=== PATIENT | male | born 1970 | race Caucasian/White ===

== ENCOUNTER 2022-04-03 10:39 | Emergency (ER) | payer OTHER, SELFPAY ==
--- NOTE | ~2022-04-03 | CT_ITS ---
EXAMINATION: CT ABDOMEN AND PELVIS WITHOUT CONTRAST CLINICAL INFORMATION: Right lower quadrant pain. COMPARISON: None. TECHNIQUE: Multidetector volumetric imaging was performed from the superior aspect of the liver through the pubic symphysis. Sagittal and coronal reformatted images were obtained on the technologist's workstation. This CT examination was performed using dose optimization techniques as appropriate, variously including the following: *Automated exposure control *Adjustment of mA and/or kV according to patient size (this includes techniques or standardized protocols for targeted exams where dose is matched to indication/reason for exam; i.e. extremities or head) *Use of iterative reconstruction technique DLP: 592 mGy-cm FINDINGS: LUNG BASES: Multiple sub-5 mm subpleural and perifissural pulmonary nodules. For example, a 0.5 cm subpleural right middle lobe nodule (4:65), a 0.3 cm subpleural right lower lobe nodule (4:77), and a 0.5 cm subpleural left lower lobe nodule (4:105). No focal consolidation or pleural effusion. Small subpleural blebs posteriorly in the lung bases. Extensive triple-vessel coronary calcifications. LIVER, GALLBLADDER, AND BILIARY TREE: The liver is enlarged measuring 19.6 m craniocaudally and demonstrates decrease parenchymal attenuation most consistent with hepatic steatosis. No focal lesions are identified. Normal appearance of the gallbladder. No biliary ductal dilatation. PANCREAS: Small nonspecific calcification in the pancreatic head (3:41) possibly sequela of prior pancreatitis. The main pancreatic duct is nondilated. No peripancreatic free fluid or fat stranding. SPLEEN: Unremarkable. ADRENAL GLANDS: Unremarkable. KIDNEYS AND URETERS: The kidneys are normal in size, shape, and attenuation. Small water density cyst in the upper pole of the left kidney (3:33). No hydronephrosis, hydroureter, or calculi seen. No perinephric stranding. BLADDER: Unremarkable. GASTROINTESTINAL TRACT: Normal appendix (3:41). The stomach and the small bowel are nondilated. Questionable lower esophageal circumferential thickening. Extensive colonic diverticulosis without evidence of acute diverticulitis. No bowel obstruction. ABDOMINAL WALL: No significant hernia. LYMPH NODES: No lymphadenopathy by size criteria. VASCULAR: Extensive atherosclerotic disease. Abdominal aorta is of normal diameter. PELVIC VISCERA: Borderline enlarged prostate. Normal seminal vesicles. Calcification of the vas deferens. OSSEOUS STRUCTURES: No acute or aggressive appearing osseous abnormalities. Multilevel spondylosis with mild retrolisthesis of L5 on S1. CT/CT abdomen pelvis wo con IMPRESSION: 1. Normal appendix. 2. Extensive sigmoid diverticulosis without evidence of acute diverticulitis. 3. Lower esophageal wall thickening suggesting reflux esophagitis in the appropriate clinical context. If indicated, consider correlation with an upper enteroscopy. 4. Hepatomegaly and hepatic steatosis. 5. Extensive coronary calcifications and atherosclerotic disease. Correlate with cardiovascular risk factors. 6. Sub-5 mm pulmonary nodules are nonspecific. Assuming patient has no history of malignancy, recommend follow-up per Fleischner Society recommendations. According to the UPDATED 2017 Fleischner Society recommendations, the advised followup imaging for solid nodules < 6 mm is: LOW RISK PATIENT: No routine follow up. HIGH RISK PATIENT: Optional CT at 12 months.
--- NOTE | ~2022-04-03 | US_ITS ---
EXAMINATION: US ABDOMEN LIMITED CLINICAL INFORMATION: Right lower quadrant abdominal pain. COMPARISON: None. TECHNIQUE: Imaging of the abdomen was performed with a high-frequency linear transducer using graded compression. FINDINGS: The appendix is not demonstrated due to overlying gas and stool. No inflammatory changes are identified in the right lower quadrant. There is no free fluid. The right kidney is normal in size and echogenicity without hydronephrosis. No evidence of gallbladder stones, gallbladder wall thickening or pericholecystic free fluid. US/US appendix IMPRESSION: Evaluation of the appendix is non-diagnostic due to overlying gas and stool. No inflammatory changes identified in the right lower quadrant.
--- NOTE | ~2022-04-03 | CT_ITS ---
EXAMINATION: CT HEAD WITHOUT CONTRAST CLINICAL INFORMATION: Dizziness and headache. Elevated blood pressure. COMPARISON: None TECHNIQUE: Contiguous axial imaging was performed from the skull base to vertex without intravenous administration of contrast. This CT examination was performed using dose optimization techniques as appropriate, variously including the following: *Automated exposure control *Adjustment of mA and/or kV according to patient size (this includes techniques or standardized protocols for targeted exams where dose is matched to indication/reason for exam; i.e. extremities or head) *Use of iterative reconstruction technique DLP: 780 mGy-cm FINDINGS: There is no evidence of an extra-axial collection. There is no evidence of intra-axial or extra-axial hemorrhage. There is a prominent cisterna magna. The ventricles and extra-axial CSF spaces are otherwise appropriate. [place]-white matter differentiation is normal. No mass, mass effect or infarct is seen. Review of bone windows is normal. Visualized paranasal sinuses, mastoid air cells and middle ears are clear. CT/CT head/brain wo con IMPRESSION: No acute findings. Prominent cisterna magna otherwise unremarkable exam.
[2022-04-03 10:52] VITALS: BP 149/81; PULSE 108; RESP 18; TEMP 36.6; O2SAT 98; BMI 28.4
[2022-04-03 11:08] LABS: MANUAL DIFF FLAG NO
[2022-04-03 11:09] LABS: Basophils Percent Auto 0.1 % (0-2); Eosinophils Percent Auto 0.1 % (0-4); Hematocrit 44.5 % (42.0-52.0); Hemoglobin 15.3 g/dl (14.0-18.0); Imm Gran Abs Auto 0.09 X10*3/uL (0.00-0.03); Imm Gran Pct Auto 0.5 % (0.0-0.4); Lymphocytes Absolute Auto 1.4 X10*3/uL (1.2-4.9); Lymphocytes Percent Auto 7.1 % (20-40); Mean Corpuscular HGB Conc 34.4 g/dl (31.0-36.0); Mean Corpuscular Hemoglobin 29.5 pg (27.0-33.0); Mean Corpuscular Volume 85.9 fL (80.0-98.0); Mean Platelet Volume 9.1 fL (9.4-12.4); Monocytes Absolute Auto 0.9 X10*3/uL (0.1-1.2); Monocytes Percent Auto 4.7 % (2-11); Neutrophils Percent Auto 87.5 % (45-73); Platelet Count 328 X10*3/uL (160-400); Red Blood Count 5.18 X10*6/uL (4.60-5.80); Red Cell Distribution Width 13.7 % (11.0-16.0); White Blood Count 19.4 X10*3/uL (4.8-10.8)
[2022-04-03 11:26] LABS: Alanine Aminotransferase 23 U/L (0-40); Albumin Level 4.6 g/dL (3.5-5.0); Alkaline Phosphatase 75 U/L (39-117); Anion Gap 17 (12-20); Aspartate Amino Transferase 17 U/L (5-37); Bilirubin Total 0.5 mg/dL (0.0-1.0); Blood Urea Nitrogen 31 mg/dL (9-16); Carbon Dioxide 19 mmol/L (22-29); Chloride 107 mmol/L (96-108); Creatinine Clr Calc Pharmacy 71.4; Estimated Glomerular Filt Rate 54; Glucose Random 215 mg/dL (60-115); Magnesium 2.1 mg/dL (1.6-2.6); Potassium 4.5 mmol/L (3.3-5.1); Sodium 138 mmol/L (135-145); Total Protein 6.9 g/dL (6.5-8.0)
[2022-04-03 11:32] LABS: Influenza A Negative (Negative); Influenza B2 Negative (Negative)
[2022-04-03 11:40] LABS: COVID-19 Test Negative (Negative); IDNOW Serial# 55D5AD1C
[2022-04-03] MEDS: 0.9 % Sodium Chloride 1,000 ML 999 ML IVCONT (14:33)
[2022-04-03 14:48] VITALS: BP 178/93; PULSE 90; RESP 18; O2SAT 99
[2022-04-03 14:49] VITALS: RESP 17
[2022-04-03 14:49] LABS: Lactic Acid 1.1 mmol/L (0.5-2.0)
[2022-04-03] MEDS: Morphine Sulfate 4 MG/ML CARTRIDGE IVPUSH (14:49)
[2022-04-03] MEDS: ondansetron HCL 4 MG/2 ML VIAL IVPUSH (14:49)
--- NOTE | 2022-04-03 15:38 | ED_ITS ---
HPI - Nausea/Vomiting/Diarrhea General Chief complaint: Nausea/Vomiting/Diarrhea Stated complaint: Vomiting/Bit by tick 03/29 Time Seen by Provider: 04/03/22 10:57 Source: patient and family Mode of arrival: ambulatory Limitations: no limitations History of Present Illness HPI Narrative: 51-year-old male with a past medical history of hypertension, diabetes and anxiety presenting to the ED with his with complaints of nausea/vomiting/diarrhea with lower abdominal pain worse on the right lower aspect since yesterday 10:00. Reports that he has been unable to keep anything down. He reports that he went camping over the weekend was bit by a tick which he was able to pull out by the afternoon and he is unsure if this is related. He denies recent travel or sick contacts or possible bad food exposure or any others with similar symptoms. He denies any measured fevers, dizziness, headaches, neck pain/stiffness, trouble swallowing or breathing, chest pain or shortness of breath, cough, loss of taste or smell, nasal congestion/rhinorrhea, dyspnea on exertion, orthopnea, palpitations, paresthesias, black or bloody stools, black or bloody emesis, dysuria, hematuria, abnormal penile discharge, rashes or any other symptoms complaints or concerns at this time. Reports that he has never had this in the past. MD elicited complaint: nausea, vomiting, diarrhea and abdominal pain Onset (ago): day(s) (2) Description of vomiting: bilious Description of diarrhea: watery Associated nausea: Yes Associated abdominal pain: Yes Location of pain: RLQ, LLQ and suprapubic Radiation: does not radiate Pain consistency: constant Severity: severe Pain scale (0-10): 10 Quality: aching and constant Exacerbating factors: none Relieving factors: none Associated symptoms: loss of appetite and nausea/vomiting Related Data Previous Rx's Medication Instructions Recorded dicyclomine 20 mg tablet 20 mg PO BID #14 tab 04/03/22 ondansetron 4 mg disintegrating 4 mg PO Q8H #14 tab 04/03/22 tablet Allergies Allergy/AdvReac Type Severity Reaction Status Date / Time No Known Allergies Allergy Verified 04/03/22 10:54 Review of Systems Review of Systems: Constitutional : No Fever, No Chills, No Night Sweats, No Fatigue, No Malaise Cardiovascular : No Chest Pain, No SOB Respiratory : No Cough, No Sputum, No Wheezing, No Dyspnea Gastrointestinal : + Nausea, + Vomiting, + Diarrhea, + abdominal Pain, No Hematochezia, No Melena Genitourinary : No irregular bleeding, No Dysuria, No Urinary Frequency, No Hematuria,No Urinary Incontinence, No Urgency, No Flank Pain Musculoskeletal : No joint pain, No Myalgias, No Joint Swelling Skin : No Skin Lesions, No rash Neuro : +general Weakness, No Focal weakness, No Numbness, No Paresthesias, No Loss of Consciousness, No Dizziness, No Headache Heme/Lymph: No Lymphadenopathy Endocrine : No Temperature Intolerance Yes all other systems are reviewed and are negative Gastrointestinal: Gastrointestinal: Reports nausea PMFSH Past Medical History Attestation statement: The following information was validated with the patient. Surgical History H/O hernia repair Social History Social History Advance Directives: No Physical Exam Vital Signs: Vital Signs: Last Vital Signs Temp 98 F 04/03/22 10:52 Pulse 90 04/03/22 14:48 Resp 17 04/03/22 14:49 BP 178/93 H 04/03/22 14:48 Pulse Ox 99 04/03/22 14:48 BMI result Body Mass Index 28.4 vital signs have been reviewed as normal and appeared to be correct. Blood pressure 149/81. Heart rate 108. Respiration rate normal. Temperature normal. Oxygen saturation normal. Appearance: Alert. Oriented X3. No acute distress. Head: Normal external exam. Normocephalic. Eyes: PERRLA. EOMI. Conjunctiva and sclera normal. Eyelids normal. ENT: Pharynx normal. Uvula midline. Moist mucous membranes. No trismus noted. No drooling noted. No muffled voice noted. Neck: Normal inspection. Neck supple. FROM. No adenopathy. No meningeal signs. CVS: Normal heart rate and rhythm. Heart sound normal. No murmurs noted. Pulses normal throughout. Respiratory: No respiratory distress. Painless inspiration. Breath sounds normal. No wheezes/rales/rhonchi noted. Chest nontender. No accessory muscle usage noted or decreased air movement noted. Abdomen: Soft and moderate tenderness palpation to the right lower quadrant mild tenderness palpation to the suprapubic/left lower quadrant with guarding. Nondistended. No rigidity. Bowel sounds normal in all 4 quadrants. No distention noted. No organomegaly noted. No visible injury noted. + rebound tenderness. + Rovsing sign. + obturator's sign. + psoas sign. Negative Aldridge sign. Back: No CVA tenderness. Full range of motion noted. Skin: Skin warm and dry. Normal skin color. Normal skin turgor. No rashes/lesions/lacerations noted. Extremities: Extremities exhibit normal range of motion. Extremities nontender. Neuro: Oriented X 3. No motor deficit. No sensory deficit. Reflexes normal. Normal steady gait. CN's II-XII intact bilaterally? Course Course Course Narrative: 14pm - 51-year-old male with a past medical history of hypertension, diabetes and anxiety presenting to the ED with his with complaints of nausea/vomiting/diarrhea with lower abdominal pain worse on the right lower aspect since yesterday 10:00. Reports that he has been unable to keep anything down. He reports that he went camping over the weekend was bit by a tick which he was able to pull out by the afternoon and he is unsure if this is related. Labs were obtained while the patient was in the waiting room and revealed Patient with an elevated white blood cell count at 19,000. Carbon dioxide 19. BUN 31. Random glucose 215. Otherwise all other labs are within normal limits. Patient negative for COVID influenza. Lyme titer is pending at this time. Plan: Therefore at this time will obtain blood cultures and lactic acid provide 4 mg of Zofran and 4 mg of morphine and obtain a ultrasound of his appendix and then re-evaluate. Reevaluation(s) Reevaluation #1: - appendix ultrasound was negative. I accidentally ordered a CT scan of brain on this patient instead of a CT scan of abdomen pelvis CT scan of brain revealed chronic changes no acute processes noted. CT scan abdomen pelvis without IV contrast revealed chronic changes normal appendix no acute processes. Although patient noted to have pulmonary nodules that were nonspecific and he does not have a history of malignancy therefore I printed out the results of the CT scan and handed to the patient explained him that he should have further evaluation treatment with his PCP if his PCP believes he needs it. - therefore at this time attempting p.o. trial patient is drinking sandy bridgette and eating saltines if patient can keep that down he will be discharged with instructions return if any new or worsening symptoms. Patient understands agrees with this plan. Time: 17:41 Reevaluation #2: - UA revealed a 1000 glucose and 15 ketones with +2 blood otherwise no evidence of UTI. Therefore at this time patient is tolerating p.o. fluids and saltines as well patient can be discharged with gastroenteritis instructions return if any new or worsening symptoms to follow up with primary care provider. Patient understands agrees with this plan. Time: 18:34 MDM - Nausea/Vomiting/Diarrhea Medical Records Attestation: I reviewed the patient's medical records. Lab Data Attestation: I reviewed the patient's lab results. Result diagrams: 04/03/22 11:04 04/03/22 11:04 Labs: Lab Results 04/03/22 04/03/22 04/03/22 Range/Units 11:04 11:04 11:04 WBC 19.4 H (4.8-10.8) X10*3/uL RBC 5.18 (4.60-5.80) X10*6/uL Hgb 15.3 (14.0-18.0) g/dl Hct 44.5 (42.0-52.0) % MCV 85.9 (80.0-98.0) fL MCH 29.5 (27.0-33.0) pg MCHC 34.4 (31.0-36.0) g/dl RDW 13.7 (11.0-16.0) % Plt Count 328 (160-400) X10*3/uL MPV 9.1 L (9.4-12.4) fL Immature Gran % (Auto) 0.5 H (0.0-0.4) % Neut % (Auto) 87.5 H (45-73) % Lymph % (Auto) 7.1 L (20-40) % Daniels % (Auto) 4.7 (2-11) % Eos % (Auto) 0.1 (0-4) % Baso % (Auto) 0.1 (0-2) % Lymph # (Auto) 1.4 (1.2-4.9) X10*3/uL Daniels # (Auto) 0.9 (0.1-1.2) X10*3/uL Eos # (Auto) 0.0 (0.0-0.4) X10*3/uL Baso # (Auto) 0.0 (0.0-0.2) X10*3/uL Abs Immat Gran (auto) 0.09 H (0.00-0.03) X10*3/uL Absolute Neuts (auto) 17.0 H (2.0-8.3) x10*3/uL Absolute Nucleated RBC 0.000 (0.0-0.012) X10*3/uL Nucleated RBC % (auto) 0.0 (0.0-0.2) /100WBC Sodium (135-145) mmol/L Potassium (3.3-5.1) mmol/L Chloride (96-108) mmol/L Carbon Dioxide (22-29) mmol/L Anion Gap (12-20) BUN (9-16) mg/dL Creatinine (0.5-1.4) mg/dL Estim Creat Clear Calc Estimated GFR Random Glucose (60-115) mg/dL Lactic Acid (0.5-2.0) mmol/L Calcium (8.4-10.2) mg/dL Magnesium (1.6-2.6) mg/dL Total Bilirubin (0.0-1.0) mg/dL AST (5-37) U/L ALT (0-40) U/L Alkaline Phosphatase (39-117) U/L Total Protein (6.5-8.0) g/dL Albumin (3.5-5.0) g/dL Urine Color Urine Appearance Urine pH (5.0-8.0) Ur Specific [place] (1.005-1.025) Urine Protein (NEG-TRACE) MG/DL Urine Glucose (UA) (NEG) MG/DL Urine Ketones (NEG) MG/DL Urine Blood (NEG) Urine Nitrite (NEG) Ur Leukocyte Esterase (NEG) Urine RBC (0) /HPF Urine WBC (0-4) /HPF Ur Squamous Epith Cells /LPF Urine Bacteria /LPF COVID-19 (RORY) Negative (Negative) COVID-19 Clin Com See Note Influenza Type A (DAMIR) Negative (Negative) Influenza Type B (DAMIR) Negative (Negative) Influenza A & B Note See Note 04/03/22 04/03/22 04/03/22 Range/Units 11:04 14:31 18:17 WBC (4.8-10.8) X10*3/uL RBC (4.60-5.80) X10*6/uL Hgb (14.0-18.0) g/dl Hct (42.0-52.0) % MCV (80.0-98.0) fL MCH (27.0-33.0) pg MCHC (31.0-36.0) g/dl RDW (11.0-16.0) % Plt Count (160-400) X10*3/uL MPV (9.4-12.4) fL Immature Gran % (Auto) (0.0-0.4) % Neut % (Auto) (45-73) % Lymph % (Auto) (20-40) % Daniels % (Auto) (2-11) % Eos % (Auto) (0-4) % Baso % (Auto) (0-2) % Lymph # (Auto) (1.2-4.9) X10*3/uL Daniels # (Auto) (0.1-1.2) X10*3/uL Eos # (Auto) (0.0-0.4) X10*3/uL Baso # (Auto) (0.0-0.2) X10*3/uL Abs Immat Gran (auto) (0.00-0.03) X10*3/uL Absolute Neuts (auto) (2.0-8.3) x10*3/uL Absolute Nucleated RBC (0.0-0.012) X10*3/uL Nucleated RBC % (auto) (0.0-0.2) /100WBC Sodium 138 (135-145) mmol/L Potassium 4.5 (3.3-5.1) mmol/L Chloride 107 (96-108) mmol/L Carbon Dioxide 19 L (22-29) mmol/L Anion Gap 17 (12-20) BUN 31 H (9-16) mg/dL Creatinine 1.38 (0.5-1.4) mg/dL Estim Creat Clear Calc 71.4 Estimated GFR 54 Random Glucose 215 H (60-115) mg/dL Lactic Acid 1.1 (0.5-2.0) mmol/L Calcium 10.0 (8.4-10.2) mg/dL Magnesium 2.1 (1.6-2.6) mg/dL Total Bilirubin 0.5 (0.0-1.0) mg/dL AST 17 (5-37) U/L ALT 23 (0-40) U/L Alkaline Phosphatase 75 (39-117) U/L Total Protein 6.9 (6.5-8.0) g/dL Albumin 4.6 (3.5-5.0) g/dL Urine Color YELLOW Urine Appearance CLEAR Urine pH 5.5 (5.0-8.0) Ur Specific [place] 1.025 (1.005-1.025) Urine Protein 1+ H (NEG-TRACE) MG/DL Urine Glucose (UA) >=1000 H (NEG) MG/DL Urine Ketones 15 (NEG) MG/DL Urine Blood 2+ H (NEG) Urine Nitrite NEG (NEG) Ur Leukocyte Esterase NEG (NEG) Urine RBC 1-4 (0) /HPF Urine WBC 0 (0-4) /HPF Ur Squamous Epith Cells NONE /LPF Urine Bacteria 1+ /LPF COVID-19 (RORY) (Negative) COVID-19 Clin Com Influenza Type A (DAMIR) (Negative) Influenza Type B (DAMIR) (Negative) Influenza A & B Note Imaging Data Abdominal ultrasound: Attestation: I personally reviewed and interpreted this imaging study as follows: Radiologist's impression: FINDINGS: The appendix is not demonstrated due to overlying gas and stool. No inflammatory changes are identified in the right lower quadrant. There is no free fluid. The right kidney is normal in size and echogenicity without hydronephrosis. No evidence of gallbladder stones, gallbladder wall thickening or pericholecystic free fluid. US/US appendix IMPRESSION: Evaluation of the appendix is non-diagnostic due to overlying gas and stool. No inflammatory changes identified in the right lower quadrant. CT scan abdomen pelvis without IV contrast: Attestation: I personally reviewed and interpreted this imaging study as follows: Radiologist's impression: FINDINGS: LUNG BASES: Multiple sub-5 mm subpleural and perifissural pulmonary nodules. For example, a 0.5 cm subpleural right middle lobe nodule (4:65), a 0.3 cm subpleural right lower lobe nodule (4:77), and a 0.5 cm subpleural left lower lobe nodule (4:105). No focal consolidation or pleural effusion. Small subpleural blebs posteriorly in the lung bases. Extensive triple-vessel coronary calcifications.? LIVER, GALLBLADDER, AND BILIARY TREE: The liver is enlarged measuring 19.6 m craniocaudally and demonstrates decrease parenchymal attenuation most consistent with hepatic steatosis. No focal lesions are identified. Normal appearance of the gallbladder. No biliary ductal dilatation. PANCREAS: Small nonspecific calcification in the pancreatic head (3:41) possibly sequela of prior pancreatitis. The main pancreatic duct is nondilated. No peripancreatic free fluid or fat stranding.? SPLEEN: Unremarkable.? ADRENAL GLANDS: Unremarkable.? KIDNEYS AND URETERS: The kidneys are normal in size, shape, and attenuation. Small water density cyst in the upper pole of the left kidney (3:33). No hydronephrosis, hydroureter, or calculi seen. No perinephric stranding. ? BLADDER: Unremarkable.? GASTROINTESTINAL TRACT: Normal appendix (3:41). The stomach and the small bowel are nondilated. Questionable lower esophageal circumferential thickening. Extensive colonic diverticulosis without evidence of acute diverticulitis. No bowel obstruction.? ABDOMINAL WALL: No significant hernia.? LYMPH NODES: No lymphadenopathy by size criteria. VASCULAR: Extensive atherosclerotic disease. Abdominal aorta is of normal diameter. PELVIC VISCERA: Borderline enlarged prostate. Normal seminal vesicles. Calcification of the vas deferens.? OSSEOUS STRUCTURES: No acute or aggressive appearing osseous abnormalities. Multilevel spondylosis with mild retrolisthesis of L5 on S1.? CT/CT abdomen pelvis wo con IMPRESSION: 1.? Normal appendix. ? 2.? Extensive sigmoid diverticulosis without evidence of acute diverticulitis. ? 3.? Lower esophageal wall thickening suggesting reflux esophagitis in the appropriate clinical context. If indicated, consider correlation with an upper enteroscopy. ? 4.? Hepatomegaly and hepatic steatosis. ? 5.? Extensive coronary calcifications and atherosclerotic disease. Correlate with cardiovascular risk factors. ? 6.? Sub-5 mm pulmonary nodules are nonspecific. Assuming patient has no history of malignancy, recommend follow-up per Fleischner Society recommendations. According to the UPDATED 2017 Fleischner Society recommendations, the advised followup imaging for solid nodules < 6 mm is: ?? LOW RISK PATIENT: No routine follow up. ?? HIGH RISK PATIENT: Optional CT at [address] : Attestation: I personally reviewed and interpreted this imaging study as follows: Radiologist's impression: FINDINGS: There is no evidence of an extra-axial collection. There is no evidence of intra-axial or extra-axial hemorrhage. There is a prominent cisterna magna. The ventricles and extra-axial CSF spaces are otherwise appropriate. [place]-white matter differentiation is normal. No mass, mass effect or infarct is seen. Review of bone windows is normal. Visualized paranasal sinuses, mastoid air cells and middle ears are clear. CT/CT head/brain wo con IMPRESSION: No acute findings. Prominent cisterna magna otherwise unremarkable exam. Critical Care Time Critical Care Time Critical Care Time: Yes Total Critical Care Time: 60 Attestation: I personally attest to this time spent taking care of the patient Discharge Plan Discharge Clinical Impression: Gastroenteritis, Incidental pulmonary nodule, Diverticulosis, GERD (gastroesophageal reflux disease), Hepatomegaly, Fatty liver Patient Disposition: Home, Self-Care Instructions: Diverticulosis (ED), Gastroenteritis (DC), Non-Alcoholic Fatty Liver Disease (ED), Pulmonary Nodules (ED) Prescriptions: New ondansetron 4 mg tablet,disintegrating 4 mg PO Q8H Qty: 14 0RF dicyclomine 20 mg tablet 20 mg PO BID Qty: 14 0RF Referrals: Vicente Thomason III, MD [Primary Care Provider] - 2 days Stand Alone Forms: Work/School Release
[2022-04-03 18:25] LABS: Appearance Urine CLEAR; Color Urine YELLOW; Glucose Urine UA >=1000 MG/DL (NEG); Leukocyte Esterase Urine NEG (NEG); Nitrite Urine NEG (NEG); PH 5.5 (5.0-8.0); Specific Gravity - Urine 1.025 (1.005-1.025); UACC Culture Trigger NO; Urine Blood 2+ (NEG); Urine Ketones 15 MG/DL (NEG); Urine Protein 1+ MG/DL (NEG-TRACE)
[2022-04-03 18:33] LABS: Bacteria Urine 1+ /LPF; WBC Urine 0 /HPF (0-4)
[2022-04-04 12:57] LABS: Lyme Abs Screen <0.90 index
== END 2022-04-03 19:36 | disposition home or self-care (01) ==
PROVIDERS: Physician Assistant Medical; Emergency Provider Emergency Medicine Emergency Medical Services; PCP Internal Medicine
DX: K52.9 Noninfective gastroenteritis and colitis, unspecified (principal); R91.1 Solitary pulmonary nodule; K57.90 Diverticulosis of intestine, part unspecified, without perforation or abscess without bleeding; K21.9 Gastro-esophageal reflux disease without esophagitis; R16.0 Hepatomegaly, not elsewhere classified; K76.0 Fatty (change of) liver, not elsewhere classified; E11.9 Type 2 diabetes mellitus without complications; I10 Essential (primary) hypertension; Z20.822 Contact with and (suspected) exposure to COVID-19
CPT/HCPCS: 36415; 70450; 74176; 76705; 80053; 81001; 83605; 83735; 85025; 86617; 86618; 87040; 87502; 87635; 96361; 96374; 96375; 99283; 99291; J2270; J2405

== ENCOUNTER 2023-02-07 09:33 | Emergency (ER) | payer OTHER, SELFPAY ==
--- NOTE | ~2023-02-07 | CT_ITS ---
EXAMINATION: CT ABDOMEN AND PELVIS WITHOUT CONTRAST CLINICAL INFORMATION: Abdominal pain, vomiting. COMPARISON: CT abdomen/pelvis 04/03/2022. TECHNIQUE: Multidetector volumetric imaging was performed from the superior aspect of the liver through the pubic symphysis. Sagittal and coronal reformatted images were obtained on the technologist's workstation. This CT examination was performed using dose optimization techniques as appropriate, variously including the following: *Automated exposure control *Adjustment of mA and/or kV according to patient size (this includes techniques or standardized protocols for targeted exams where dose is matched to indication/reason for exam; i.e. extremities or head) *Use of iterative reconstruction technique DLP: 532 mGy-cm FINDINGS: LUNG BASES: Sub-5 mm predominantly subpleural pulmonary nodules, for instance in the right middle lobe (4:10) are not significantly changed. No focal consolidation or pleural effusion. Partially imaged coronary artery calcifications. LIVER, GALLBLADDER, AND BILIARY TREE: The liver is enlarged measuring 19 cm craniocaudally and demonstrates decreased attenuation of the parenchyma suggesting hepatic steatosis with regions of fatty sparing/perfusional abnormalities adjacent to the gallbladder and fissure of the falciform ligament. No focal liver lesions are noted in this limited noncontrast examination. Normal appearance of the gallbladder. No biliary ductal dilatation. PANCREAS: Limited noncontrast examination. No significant peripancreatic fat stranding or free fluid. A small calcification along the anterior surface of the proximal pancreas (3:33) is unchanged. SPLEEN: Limited noncontrast examination with redemonstration of scattered small granulomas. ADRENAL GLANDS: No adrenal mass. KIDNEYS AND URETERS: Limited noncontrast examination. No nephrolithiasis or hydronephrosis, no significant perinephric fat stranding. Simple cortical cyst in the upper left kidney, for which no imaging follow-up is recommended. BLADDER: Unremarkable. GASTROINTESTINAL TRACT: The stomach and the small bowel are nondilated. Normal appendix situated high in the right upper quadrant (3:32). Colonic diverticulosis but without significant pericolonic inflammatory changes to suspect acute diverticulitis. Evaluation of wall thickening is limited due to luminal underdistention. No bowel junction. ABDOMINAL WALL: No significant hernia is appreciated. LYMPH NODES: No lymphadenopathy. VASCULAR: Limited noncontrast examination with extensive atherosclerotic disease. Abdominal aorta is normal in caliber. PELVIC VISCERA: Unremarkable. OSSEOUS STRUCTURES: No acute or aggressive appearing osseous abnormalities. CT/CT abdomen pelvis wo IV con IMPRESSION: 1. Hepatomegaly and hepatic steatosis. 2. Diverticulosis but with no significant pericolonic inflammatory changes to suspect acute diverticulitis. 3. No evidence of bowel obstruction. 4. Stable sub-5 mm pulmonary nodules compared to 04/03/2022.
[2023-02-07 09:41] VITALS: BP 154/84; PULSE 98; RESP 17; TEMP 36.6; O2SAT 98; BMI 29.5
[2023-02-07 13:38] VITALS: BP 169/90; PULSE 95; RESP 21; O2SAT 100
--- NOTE | 2023-02-07 13:46 | PC.NURSE ---
pt reporting 10/10 abd pain since with vomiting. reports unable to keep anything down. Vitals stable, monitor technician intact. awaiting ED provider.
--- NOTE | 2023-02-07 14:13 | ED.ABDPAIN ---
HPI - Abdominal Pain General Chief Complaint: Abdominal Pain Stated Complaint: Vomiting Time Seen by Provider: 02/07/23 13:40 Source: patient Mode of arrival: ambulatory Limitations: no limitations History of Present Illness HPI narrative: 52-year-old male came in for evaluation of abdominal pain, nausea, vomiting. Patient's symptoms started 2 days ago, patient is unable to keep any food or fluids down because of the severe vomiting, no sick contact, recent travel, no bad food was ingested recently, no recent use of antibiotic. Pain is mostly lower abdomen were confined to the right lower quadrant area with no radiation associated with nausea and vomiting, patient had a normal bowel movement with no blood, no dysuria, no frequency urination. No fever, no chills, no CP, no SOB. Patient had similar presentation in the past when was diagnosed with diverticulitis. Patient declined any past surgical history. Related Data Previous Rx's Medication Instructions Recorded dicyclomine 20 mg tablet 20 mg PO BID abd cramping #14 tabs 04/03/22 ondansetron 4 mg disintegrating 4 mg PO Q8H nausea/vomiting #14 04/03/22 tablet tabs Allergies Allergy/AdvReac Type Severity Reaction Status Date / Time No Known Allergies Allergy Verified 02/07/23 09:41 Review of Systems Review of Systems All other systems are reviewed and are negative Constitutional: Reports as per HPI and Reports no additional constitutional complaints Eyes: Reports as per HPI and Reports no additional eye complaints Reports system reviewed and no additional complaints, except as documented Cardiovascular: Reports as per HPI and Reports no additional cardiovascular complaints Respiratory: Reports as per HPI and Reports no additional respiratory complaints Gastrointestinal: Reports as per HPI and Reports no additional gastrointestinal complaints Genitourinary: Reports no additional female genitourinary complaints Musculoskeletal: Reports no additional musculoskeletal complaints Skin/Breast: Reports system reviewed and no additional complaints, except as docu Psychiatric: Reports no additional psychiatric complaints Endocrine: Reports no additional endocrine complaints Hematologic/Lymphatic: Reports no additional hematologic/lymphatic complaints Allergic/Immunologic: Reports no additional allergic/immunologic complaints Reports system reviewed and no additional complaints, except as documented and Reports Abnormal speech present [facility] Past Medical History Surgical History H/O hernia repair Social History Social History Alcohol intake: never Smoked in Last 30 Days: Yes Use of substances other than those prescribed or required for medical reasons: Yes Substance Use Type: Marijuana Advance Directives: No Advance Directives Information Provided: No Physical Exam ED Vital Signs: Vital Signs - 24 hr 02/07/23 09:41 02/07/23 13:38 02/07/23 15:36 Temperature 98 F 98.6 F Pulse Rate 98 95 92 Respiratory Rate 17 21 H 16 Blood Pressure 154/84 H 169/90 H 159/65 H Pulse Oximetry 98 100 99 Oxygen Delivery Method Room Air Room Air Room Air BMI result Body Mass Index 29.5 Vital signs have been reviewed as appeared to be correct. Blood pressure normal. Heart rate normal. Respiration rate normal. Temperature normal. Oxygen saturation normal. Appearance: Alert. Oriented X3. No acute distress. Head: Normal external exam. Normocephalic. Atraumatic. No Marie signs noted. No raccoon eyes noted Eyes: PERRLA. EOMI. Conjunctiva and sclera normal. Eyelids normal. ENT: TM's Normal. Pharynx normal. Uvula midline. Dry mucous membranes. No trismus noted. No drooling noted. No muffled voice noted. Neck: Normal inspection. Neck supple. FROM. No adenopathy. Thyroid Normal. No meningeal signs. No neck mass noted. CVS: Normal heart rate and rhythm. Heart sound normal. No murmurs noted. Pulses normal throughout. Respiratory: No respiratory distress. Painless inspiration. Breath sounds normal. No wheezes/rales/rhonchi noted. Chest nontender. No accessory muscle usage noted or decreased air movement noted. Abdomen: Soft , lower abdominal tenderness, no guarding, no rebound tenderness. Bowel sounds normal in all 4 quadrants. No distention noted. No organomegaly noted. No visible injury noted. Back: No CVA tenderness. Full range of motion noted. Skin: Skin warm and dry. Normal skin color. Normal skin turgor. No rashes/lesions/lacerations noted. Extremities: No lower extremity edema. Extremities exhibit normal range of motion. Extremities nontender. Neuro: Oriented X 3. Cranial nerve exam: II-XII are grossly intact No motor deficit. No sensory deficit. Reflexes normal. Course Course Course Narrative: 52-year-old male type 2 diabetes came in for 2 days off vomiting with no diarrhea and lower abdominal pain CT of the abdomen is unremarkable, patient found to be dehydrated with leukocytosis, and increase anion gap likely due to dehydration, patient received 2 L of fluids feels better able to tolerate p.o. intake in the ED. also found to have elevated troponin patient has no chest pain. Plan is repeat chemistry after hydration and troponin with checking EKG. Case was signed out to to check on the patient's labs and dispose the patient accordingly expected to discharge home if he feels better and able to tolerate p.o. intake. Medical Decision Making Differential Diagnosis Differential Diagnoses: The differential diagnosis associated with the presentation includes (Dehydration, electrolyte disturbance, acute renal insufficiency, anemia, acute appendicitis, diverticulitis.) Admission/Observation Consideration of admission/observation: Escalation of care including admission/observation considered Lab Data MDM Lab Attestation statement: I reviewed the patient's lab results. 02/07/23 14:22 02/07/23 14:22 Labs: Lab Results 02/07/23 02/07/23 02/07/23 Range/Units 14:22 14:22 14:22 WBC 13.2 H (4.8-10.8) X10*3/uL RBC 5.28 (4.60-5.80) X10*6/uL Hgb 15.6 (14.0-18.0) g/dl Hct 45.0 (42.0-52.0) % MCV 85.2 (80.0-98.0) fL MCH 29.5 (27.0-33.0) pg MCHC 34.7 (31.0-36.0) g/dl RDW 12.7 (11.0-16.0) % Plt Count 316 (160-400) X10*3/uL MPV 9.0 L (9.4-12.4) fL Immature Gran % (Auto) 0.4 (0.0-0.4) % Neut % (Auto) 88.8 H (45-73) % Lymph % (Auto) 8.1 L (20-40) % [place] % (Auto) 2.4 (2-11) % Eos % (Auto) 0.0 (0-4) % Baso % (Auto) 0.3 (0-2) % Lymph # (Auto) 1.1 L (1.2-4.9) X10*3/uL [place] # (Auto) 0.3 (0.1-1.2) X10*3/uL Eos # (Auto) 0.0 (0.0-0.4) X10*3/uL Baso # (Auto) 0.0 (0.0-0.2) X10*3/uL Abs Immat Gran (auto) 0.05 H (0.00-0.03) X10*3/uL Absolute Neuts (auto) 11.7 H (2.0-8.3) x10*3/uL Absolute Nucleated RBC 0.000 (0.0-0.012) X10*3/uL Nucleated RBC % (auto) 0.0 (0.0-0.2) /100WBC Sodium 137 (135-145) mmol/L Potassium 4.5 (3.3-5.1) mmol/L Chloride 102 (96-108) mmol/L Carbon Dioxide 16 L (22-29) mmol/L Anion Gap 24 H (12-20) BUN 28 H (9-16) mg/dL Creatinine 1.04 (0.5-1.4) mg/dL Estim Creat Clear Calc 92.4 Estimated GFR > 60 Random Glucose 158 H (60-115) mg/dL Calcium 9.4 (8.4-10.2) mg/dL Total Bilirubin 0.7 (0.0-1.0) mg/dL Direct Bilirubin 0.2 (0.0-0.5) mg/dL AST 20 (5-37) U/L ALT 24 (0-40) U/L Alkaline Phosphatase 74 (39-117) U/L Troponin I High Sens 88.5 H (<3.5-35.0) ng/L Total Protein 6.7 (6.5-8.0) g/dL Albumin 4.6 (3.5-5.0) g/dL Lipase 24 (8-78) U/L Urine Color Urine Appearance Urine pH (5.0-9.0) Ur Specific [place] (1.005-1.025) Urine Protein (Neg-Trace) mg/dL Urine Glucose (UA) (Negative) mg/dL Urine Ketones (Negative) mg/dL Urine Blood (Negative) Urine Nitrite (Negative) Ur Leukocyte Esterase (Negative) 02/07/23 Range/Units 15:39 WBC (4.8-10.8) X10*3/uL RBC (4.60-5.80) X10*6/uL Hgb (14.0-18.0) g/dl Hct (42.0-52.0) % MCV (80.0-98.0) fL MCH (27.0-33.0) pg MCHC (31.0-36.0) g/dl RDW (11.0-16.0) % Plt Count (160-400) X10*3/uL MPV (9.4-12.4) fL Immature Gran % (Auto) (0.0-0.4) % Neut % (Auto) (45-73) % Lymph % (Auto) (20-40) % [place] % (Auto) (2-11) % Eos % (Auto) (0-4) % Baso % (Auto) (0-2) % Lymph # (Auto) (1.2-4.9) X10*3/uL [place] # (Auto) (0.1-1.2) X10*3/uL Eos # (Auto) (0.0-0.4) X10*3/uL Baso # (Auto) (0.0-0.2) X10*3/uL Abs Immat Gran (auto) (0.00-0.03) X10*3/uL Absolute Neuts (auto) (2.0-8.3) x10*3/uL Absolute Nucleated RBC (0.0-0.012) X10*3/uL Nucleated RBC % (auto) (0.0-0.2) /100WBC Sodium (135-145) mmol/L Potassium (3.3-5.1) mmol/L Chloride (96-108) mmol/L Carbon Dioxide (22-29) mmol/L Anion Gap (12-20) BUN (9-16) mg/dL Creatinine (0.5-1.4) mg/dL Estim Creat Clear Calc Estimated GFR Random Glucose (60-115) mg/dL Calcium (8.4-10.2) mg/dL Total Bilirubin (0.0-1.0) mg/dL Direct Bilirubin (0.0-0.5) mg/dL AST (5-37) U/L ALT (0-40) U/L Alkaline Phosphatase (39-117) U/L Troponin I High Sens (<3.5-35.0) ng/L Total Protein (6.5-8.0) g/dL Albumin (3.5-5.0) g/dL Lipase (8-78) U/L Urine Color Yellow Urine Appearance Clear Urine pH 5.5 (5.0-9.0) Ur Specific [place] >= 1.030 H (1.005-1.025) Urine Protein 100 (2+) H (Neg-Trace) mg/dL Urine Glucose (UA) >=1000 H (Negative) mg/dL Urine Ketones 80 (Negative) mg/dL Urine Blood Moderate (2+) H (Negative) Urine Nitrite Negative (Negative) Ur Leukocyte Esterase Negative (Negative) Independent Interpretation I performed an independent interpretation of an: CT Scan (Abdomen and pelvis: No acute intra-abdominal pathology normal appendix.) Radiology Impression Discussion of test interpretation with radiology: I have reviewed the radiologist's reading. (1. Hepatomegaly and hepatic steatosis. 2. Diverticulosis but with no significant pericolonic inflammatory changes to suspect acute diverticulitis. 3. No evidence of bowel obstruction. 4. Stable sub-5 mm pulmonary nodules compared to 04/03/2022.) Medications Administered Discontinued Medications Generic Name Dose Route Start Last Admin Trade Name Freq PRN Reason Stop Dose Admin Al Hydroxide/Mg Hydroxide 30 ml 02/07/23 14:04 02/07/23 14:26 Magnesium Hydrox/Alum Hydrox 30 Ml Oral.Susp PO 02/07/23 14:05 30 ml ONCE ONE Administration Famotidine 20 mg 02/07/23 14:04 02/07/23 14:28 Famotidine/Pf 20 Mg/2 Ml Vial IVPUSH 02/07/23 14:05 20 mg ONCE ONE Administration Sodium Chloride 1,000 mls @ 999 mls/hr 02/07/23 14:04 02/07/23 15:52 Ns IV 02/07/23 15:04 Infused .Q1H1M ONE Infusion Ondansetron HCl 4 mg 02/07/23 14:04 02/07/23 14:27 Ondansetron Hcl 4 Mg/2 Ml Vial IVPUSH 02/07/23 14:05 4 mg ONCE ONE Administration Discharge Plan Discharge Clinical Impression: Abdominal pain, Dehydration Patient Disposition: Still a Patient Instructions: Dehydration (ED) Prescriptions: No Action ondansetron 4 mg tablet,disintegrating 4 mg PO Q8H Qty: 14 0RF dicyclomine 20 mg tablet 20 mg PO BID Qty: 14 0RF Referrals: Vicente Thomason III, MD [Primary Care Provider] -
[2023-02-07] MEDS: 0.9 % Sodium Chloride 1,000 ML 999 ML IV ×3 (14:24→19:20)
[2023-02-07] MEDS: Magnesium Hydrox/Alum Hydrox 30 ML ORAL.SUSP PO (14:26)
[2023-02-07 14:27] LABS: MANUAL DIFF FLAG NO
[2023-02-07] MEDS: ondansetron HCL 4 MG/2 ML VIAL IVPUSH (14:27)
[2023-02-07 14:28] LABS: Basophils Percent Auto 0.3 % (0-2); Hemoglobin 15.6 g/dl (14.0-18.0); Imm Gran Abs Auto 0.05 X10*3/uL (0.00-0.03); Imm Gran Pct Auto 0.4 % (0.0-0.4); Lymphocytes Absolute Auto 1.1 X10*3/uL (1.2-4.9); Lymphocytes Percent Auto 8.1 % (20-40); Mean Corpuscular HGB Conc 34.7 g/dl (31.0-36.0); Mean Corpuscular Hemoglobin 29.5 pg (27.0-33.0); Mean Corpuscular Volume 85.2 fL (80.0-98.0); Monocytes Absolute Auto 0.3 X10*3/uL (0.1-1.2); Monocytes Percent Auto 2.4 % (2-11); Neutrophils Absolute Auto 11.7 x10*3/uL (2.0-8.3); Neutrophils Percent Auto 88.8 % (45-73); Platelet Count 316 X10*3/uL (160-400); Red Blood Count 5.28 X10*6/uL (4.60-5.80); Red Cell Distribution Width 12.7 % (11.0-16.0); White Blood Count 13.2 X10*3/uL (4.8-10.8)
[2023-02-07] MEDS: Famotidine/PF 20 MG/2 ML VIAL IVPUSH (14:28)
--- NOTE | 2023-02-07 14:36 | PC.NURSE ---
labs drawn and sent to lab, IV inserted. pt medicated per order, IV fluids running. will CTM
[2023-02-07 14:54] LABS: Troponin-I High Sensitivity 88.5 ng/L (<3.5-35.0)
[2023-02-07 14:57] LABS: Alanine Aminotransferase 24 U/L (0-40); Albumin Level 4.6 g/dL (3.5-5.0); Alkaline Phosphatase 74 U/L (39-117); Anion Gap 24 (12-20); Aspartate Amino Transferase 20 U/L (5-37); Bilirubin Direct 0.2 mg/dL (0.0-0.5); Bilirubin Total 0.7 mg/dL (0.0-1.0); Blood Urea Nitrogen 28 mg/dL (9-16); Calcium 9.4 mg/dL (8.4-10.2); Carbon Dioxide 16 mmol/L (22-29); Chloride 102 mmol/L (96-108); Creatinine Clr Calc Pharmacy 92.4; Estimated Glomerular Filt Rate > 60; Glucose Random 158 mg/dL (60-115); Lipase 24 U/L (8-78); Potassium 4.5 mmol/L (3.3-5.1); Sodium 137 mmol/L (135-145); Total Protein 6.7 g/dL (6.5-8.0)
[2023-02-07 15:36] VITALS: BP 159/65; PULSE 92; RESP 16; TEMP 37; O2SAT 99
--- NOTE | 2023-02-07 15:40 | PC.NURSE ---
pt on rn cardiac- NSR. urine sent to lab.
[2023-02-07 15:47] LABS: Appearance Urine Clear; Color Urine Yellow; Glucose Urine UA >=1000 mg/dL (Negative); Leukocyte Esterase Urine Negative (Negative); Nitrite Urine Negative (Negative); PH 5.5 (5.0-9.0); Specific Gravity - Urine >= 1.030 (1.005-1.025); UMIC TRIGGER UACC YES; Urine Blood Moderate (2+) (Negative); Urine Ketones 80 mg/dL (Negative); Urine Protein 100 (2+) mg/dL (Neg-Trace)
[2023-02-07 16:03] LABS: Bacteria Urine None Seen (None Seen); Granular Casts Urine Present; RBC Urine 0-2 /HPF (0-2); Squamous Epithelial Cell Urine 0-2 /HPF (0-2); WBC Urine 0-5 /HPF (0-5)
--- NOTE | 2023-02-07 16:04 | ECG_ITS ---
Test Reason : ABNORMAL LABS Blood Pressure : / mmHG Vent. Rate : 086 BPM Atrial Rate : 086 BPM P-R Int : 124 ms QRS Dur : 130 ms QT Int : 394 ms P-R-T Axes : 054 049 017 degrees QTc Int : 471 ms Normal sinus rhythm Right bundle branch block Abnormal ECG No previous ECGs available Referred By: Dinesh Coughlin Electronically Signed By:CLAUDIA BRIONES
--- NOTE | 2023-02-07 16:08 | PC.NURSE ---
ivf hung per order
[2023-02-07 17:09] LABS: MANUAL DIFF FLAG NO
[2023-02-07 17:13] LABS: Basophils Percent Auto 0.2 % (0-2); Hematocrit 39.6 % (42.0-52.0); Hemoglobin 13.6 g/dl (14.0-18.0); Imm Gran Abs Auto 0.05 X10*3/uL (0.00-0.03); Imm Gran Pct Auto 0.4 % (0.0-0.4); Lymphocytes Absolute Auto 1.1 X10*3/uL (1.2-4.9); Lymphocytes Percent Auto 8.6 % (20-40); Mean Corpuscular HGB Conc 34.3 g/dl (31.0-36.0); Mean Corpuscular Hemoglobin 29.6 pg (27.0-33.0); Mean Corpuscular Volume 86.3 fL (80.0-98.0); Mean Platelet Volume 9.1 fL (9.4-12.4); Monocytes Absolute Auto 0.4 X10*3/uL (0.1-1.2); Monocytes Percent Auto 2.9 % (2-11); Neutrophils Absolute Auto 10.8 x10*3/uL (2.0-8.3); Neutrophils Percent Auto 87.9 % (45-73); Platelet Count 282 X10*3/uL (160-400); Red Blood Count 4.59 X10*6/uL (4.60-5.80); Red Cell Distribution Width 12.9 % (11.0-16.0); White Blood Count 12.3 X10*3/uL (4.8-10.8)
[2023-02-07 17:39] LABS: Anion Gap 21 (12-20); Blood Urea Nitrogen 26 mg/dL (9-16); Calcium 7.8 mg/dL (8.4-10.2); Carbon Dioxide 15 mmol/L (22-29); Chloride 106 mmol/L (96-108); Creatinine Clr Calc Pharmacy 105.7; Estimated Glomerular Filt Rate > 60; Glucose Random 161 mg/dL (60-115); Potassium 4.5 mmol/L (3.3-5.1); Sodium 137 mmol/L (135-145)
[2023-02-07 17:41] LABS: Troponin-I High Sensitivity 76.9 ng/L (<3.5-35.0)
[2023-02-07] MEDS: Sodium Bicarbonate 8.4% 50 MEQ/50 ML SYRINGE IVPUSH (19:20)
[2023-02-07] MEDS: Prochlorperazine Edisylate 10 MG/2 ML VIAL IVPUSH (19:20)
[2023-02-07 19:25] VITALS: PULSE 85; RESP 11; O2SAT 97
--- NOTE | 2023-02-07 19:41 | PC.NURSE ---
report received from Patricia RN Pt resting on stretcher at this time, denies pain. all medications administered per JAN. Normal sinus on the monitor in the 80s. No apparent distress at this time
== END 2023-02-07 20:24 | disposition home or self-care (01) ==
PROVIDERS: Emergency Provider Emergency Medicine; PCP Internal Medicine
DX: R10.13 Epigastric pain (principal); E86.0 Dehydration; R94.31 Abnormal electrocardiogram [ECG] [EKG]; R11.2 Nausea with vomiting, unspecified; Z79.899 Other long term (current) drug therapy
CPT/HCPCS: 36415; 74176; 80048; 80076; 81001; 83690; 84484; 85025; 93005; 96361; 96374; 96375; 99285; J2405

== ENCOUNTER 2023-06-15 11:05 | Emergency (ER) | payer OTHER, SELFPAY ==
--- NOTE | ~2023-06-15 | CT_ITS ---
EXAMINATION: CT ABDOMEN AND PELVIS WITH CONTRAST CLINICAL INFORMATION: Abdominal pain. Nausea and vomiting. COMPARISON: 02/07/2023 and 04/03/2022 TECHNIQUE: Multidetector volumetric images were obtained from the superior aspect of the liver through the pubic symphysis following administration 85 mL of Omnipaque 350 intravenous contrast. Sagittal and coronal reformatted images were obtained on the technologist's workstation. Oral contrast: No This CT examination was performed using dose optimization techniques as appropriate, variously including the following: *Automated exposure control *Adjustment of mA and/or kV according to patient size (this includes techniques or standardized protocols for targeted exams where dose is matched to indication/reason for exam; i.e. extremities or head) *Use of iterative reconstruction technique DLP: 540 mGy-cm FINDINGS: LUNG BASES: Pleural-based right middle lobe 0.5 cm nodule on series 4 image 51. This is unchanged from the 2021 study, suggesting benign etiology. 0.5 cm pleural-based left lower lobe nodule on series 4 image 106 is also unchanged. Coronary artery calcifications. LIVER, GALLBLADDER, AND BILIARY TREE: The liver is normal in size, shape, and attenuation. Focal fatty infiltration along the falciform. No focal hepatic lesion or biliary ductal dilatation is present. The gallbladder is unremarkable with no evidence of radiopaque gallstones, gallbladder wall thickening, or obvious pericholecystic inflammatory changes. PANCREAS: Unremarkable. SPLEEN: Normal size with calcified granulomata present. ADRENAL GLANDS: Unremarkable. KIDNEYS AND URETERS: The kidneys are normal in size, shape, and attenuation. No hydronephrosis, hydroureter, or calculi seen. No perinephric stranding. Simple cyst at the upper pole of the left kidney. No specific follow-up recommended. BLADDER: Unremarkable. GASTROINTESTINAL TRACT: The stomach is unremarkable. Normal caliber of the small bowel. No obstruction. There is extensive colonic diverticulosis. No diverticulitis. No colonic wall thickening or acute inflammation. Normal appendix. ABDOMINAL WALL: No significant hernia is appreciated. LYMPH NODES: Normal. VASCULAR: Normal caliber aorta with moderate atherosclerotic calcification. Retroaortic left renal vein. PELVIC VISCERA: The prostate and seminal vesicles are unremarkable. OSSEOUS STRUCTURES: No acute or suspicious osseous abnormality. Mild degenerative change throughout the spine. CT/CT abdomen pelvis w IV con IMPRESSION: 1. No acute findings in the abdomen or pelvis. No inflammatory changes. Extensive colonic diverticulosis without diverticulitis. 2. Pleural-based right middle lobe and left lower lobe 0.5 cm nodules. These are unchanged since the 2021 study suggesting benign etiology. Fleischner guidelines were followed.
[2023-06-15 11:11] VITALS: BP 192/80; PULSE 66; O2SAT 100
--- NOTE | 2023-06-15 11:15 | ED_ITS ---
HPI - General Adult General Chief complaint: Abdominal Pain Stated complaint: VOMITING,DIZZY PER EMS Time Seen by Provider: 06/15/23 11:14 Source: patient and EMS Mode of arrival: EMS Limitations: no limitations History of Present Illness HPI narrative: Patient is a 53 year old assigned male at with a history of HTN, diabetes, and anxiety presenting to the emergency department today with nausea and abdominal pain. Patient states that starting at 0700 this morning he began to have abdominal pain, nausea, and vomiting. Patient states that he has been working outside more lately without hydrating appropriately and he is concerned that he is dehydrated. Patient denies any dizziness, lightheadedness, fever, chills, blurry vision, double vision, loss of vision, chest pain, difficulty breathing, shortness of breath, back pain, night sweats, pain with urination, increased urinary frequency, increased urinary urgency, blood in his urine or stool, syncope or a near syncopal episode, recent trauma or falls, bowel incontinence, bladder incontinence, bowel retention, bladder retention, or any other complaints at this time. Onset (ago): hour(s) Location: abdomen Radiation: non-radiation Severity: mild Severity scale (1-10): 4 Relieving factors: none Exacerbating factors: none Associated symptoms: nausea/vomiting Treatments prior to arrival: none Related Data Previous Rx's Medication Instructions Recorded dicyclomine 20 mg tablet 20 mg PO BID abd cramping #14 tabs 04/03/22 ondansetron 4 mg disintegrating 4 mg PO Q8H nausea/vomiting #14 04/03/22 tablet tabs metoclopramide HCl 10 mg tablet 10 mg PO Q6H PRN nausea and 02/07/23 (Reglan) vomiting #30 tabs ondansetron 4 mg disintegrating 4 mg PO Q8H 3 days #9 tabs 06/15/23 tablet Allergies Allergy/AdvReac Type Severity Reaction Status Date / Time No Known Allergies Allergy Verified 02/07/23 09:41 Review of Systems Constitutional: Constitutional: Reports no additional constitutional complaints, Denies chills, Denies fever(s) and Denies night sweats Eyes: Eyes: Reports no additional eye complaints, Denies blurry vision, Denies change in vision, Denies diplopia, Denies eye discharge, Denies loss of vision and Denies eye pain ENT: Denies dizziness Cardiovascular: Cardiovascular: Reports no additional cardiovascular complaints, Denies chest pain, Denies lightheadedness, Denies Loss of Consciousness and Denies dyspnea Respiratory: Respiratory: Reports no additional respiratory complaints and Denies dyspnea Gastrointestinal: Gastrointestinal: Reports no additional gastrointestinal complaints, Reports abdominal pain, Denies melena, Denies hematochezia, Denies change in bowel habits, Denies change in stool character, Reports nausea and Reports vomiting Genitourinary: Genitourinary: Reports no additional male genitourinary complaints, Denies hematuria, Denies oliguria, Denies difficulty urinating, Denies dysuria, Denies urinary frequency, Denies urinary hesitancy, Denies urinary incontinence and Denies urinary urgency Musculoskeletal: Musculoskeletal: Reports no additional musculoskeletal complaints, Denies numbness and Denies tingling Neurologic: Denies dizziness, Denies loss of vision, Denies numbness and Denies tingling Psychiatric: Psychiatric: Reports no additional psychiatric complaints Endocrine: Endocrine: Reports no additional endocrine complaints Hematologic/Lymphatic: Hematologic/Lymphatic: Reports no additional hematologic/lymphatic complaints Allergic/Immunologic: Allergic/Immunologic: Reports no additional allergic/immunologic complaints PMFSH Past Medical History Attestation statement: The following information was validated with the patient. Source: old records reviewed and nursing notes reviewed Surgical History H/O hernia repair Social History Social History Alcohol intake: never Substance Use Type: Marijuana Physical Exam ED Vital Signs: Vital Signs - 24 hr 06/15/23 11:17 06/15/23 13:26 Temperature 97.7 F Pulse Rate 100 70 Respiratory Rate 20 18 Blood Pressure 191/87 H 188/75 H Pulse Oximetry 100 98 Oxygen Delivery Method Room Air Room Air BMI result Body Mass Index 26.5 Const General: cooperative, no acute distress, alert and awake Nutritional Appearance: well nourished Orientation/consciousness: patient oriented x3 Limitations: no limitations HENMT Head: Yes normal to inspection and Yes atraumatic Ears: hearing grossly normal bilaterally and external ears normal General nose exam: Normal external nose present, no nasal discharge noted and no epistaxis Face and sinus: Yes normal facial exam, No abrasion and No laceration Mouth: Normal oral and palatal mucosa present, no drooling and no muffled voice Eyes General: appearance normal, both eyes and all related structures Periorbital: periorbital findings normal Eyelids: Yes eyelids normal Conjunctivae: conjunctivae normal Pupils: Equal, round and reactive pupils present EOM: EOMs intact bilaterally Neck Neck: Yes normal visual inspection, Yes full ROM and Yes no lymphadenopathy Chest Chest palpation & inspection: normal inspection of the chest Resp Effort & Inspection: normal respiratory effort and able to speak in complete sentences Auscultation: clear to auscultation bilaterally Cardio Rate: regular rate Rhythm: regular rhythm GI Inspection: Yes normal to inspection Palpation (GI): Soft to palpation, not firm, nontender and no guarding Neuro General: patient oriented x3 and moves all extremities Cranial nerves: Yes Equal, round and reactive pupils present Cognition (Neuro): normal cognition Motor exam (neuro): 5/5 motor strength present throughout Sensory Exam: Normal double simultaneous stimulation for sensation Coordination: [id number] test normal Extrem General: Yes normal to inspection, Yes full ROM and Yes capillary refill normal Psych Appearance: grossly normal Mental Status: mental status grossly normal Affect: normal affect Attitude: cooperative Thought process: Normal thought process present Thought content: Normal thought content present Insight: Good insight present (Psych) Medications Administered Discontinued Medications Generic Name Dose Route Start Last Admin Trade Name Freq PRN Reason Stop Dose Admin Sodium Chloride 1,000 mls @ 999 mls/hr 06/15/23 11:30 06/15/23 12:45 Ns IV 06/15/23 12:30 Infused .Q1H1M HERNAN Infusion Sodium Chloride 1,000 mls @ 999 mls/hr 06/15/23 13:30 06/15/23 14:33 Ns IV 06/15/23 14:30 Infused .Q1H1M HERNAN Infusion Iohexol 85 ml 06/15/23 14:02 06/15/23 14:02 Iohexol 350 Mg/Ml 100 Ml Infus..Btl IV 06/15/23 14:03 85 ml ONCE ONE Administration Ondansetron HCl 4 mg 06/15/23 11:23 06/15/23 11:25 Ondansetron Hcl 4 Mg/2 Ml Vial IVPUSH 06/15/23 11:24 4 mg ONCE ONE Administration Medical Decision Making Medical Decision Making MDM Narrative: Patient is a 53 year old assigned male at with a history of diabetes and HTN presenting to the emergency department today with abdominal pain, nausea, and vomiting. Patient's physical exam was unremarkable. Patient's blood work was unremarkable. Patient's urine showed no acute process. Patient's EKG was unremarkable. Patient's abdomen/pelvis CT showed no acute process. I explained my physical exam findings as well as all test results to the patient. I answered all questions asked by the patient. Patient received IV fluids and Zofran which he stated helped his symptoms significantly. I stressed the importance of the patient taking his medication as prescribed. I stressed the importance of the patient following up with his primary care provider. I stressed the importance of the patient returning to the emergency department immediately if his symptoms were to worsen or if he were to develop any dizziness, shortness of breath, difficulty breathing, chest pain, blurry vision, loss of vision, nausea, vomiting, abdominal pain, fever, chills, back pain, or any other complaints. Patient verbalized agreement and understanding with this treatment plan and discharge. Differential Diagnosis Differential Diagnoses: The differential diagnosis associated with the presentation includes Gastritis Enteritis Nausea Vomiting Abdominal pain Diverticulitis Admission/Observation Consideration of admission/observation: Escalation of care including admission/observation considered Patient would have been admitted to the hospital had his work up had any findings where hospital admission was appropriate and his clinical presentation warranted hospital admission. Lab Data MDM Lab Attestation statement: I reviewed the patient's lab results. My interpretation of these studies and their corresponding values is that they are grossly normal. 06/15/23 12:10 06/15/23 12:10 Labs: Lab Results 06/15/23 06/15/23 06/15/23 Range/Units 11:27 12:10 12:10 WBC 9.1 (4.8-10.8) X10*3/uL RBC 5.17 (4.60-5.80) X10*6/uL Hgb 15.4 (14.0-18.0) g/dl Hct 44.5 (42.0-52.0) % MCV 86.1 (80.0-98.0) fL MCH 29.8 (27.0-33.0) pg MCHC 34.6 (31.0-36.0) g/dl RDW 12.7 (11.0-16.0) % Plt Count 315 (160-400) X10*3/uL MPV 9.2 L (9.4-12.4) fL Immature Gran % (Auto) 0.4 (0.0-0.4) % Neut % (Auto) 85.0 H (45-73) % Lymph % (Auto) 10.2 L (20-40) % [place] % (Auto) 3.6 (2-11) % Eos % (Auto) 0.1 (0-4) % Baso % (Auto) 0.7 (0-2) % Lymph # (Auto) 0.9 L (1.2-4.9) X10*3/uL [place] # (Auto) 0.3 (0.1-1.2) X10*3/uL Eos # (Auto) 0.0 (0.0-0.4) X10*3/uL Baso # (Auto) 0.1 (0.0-0.2) X10*3/uL Abs Immat Gran (auto) 0.04 H (0.00-0.03) X10*3/uL Absolute Neuts (auto) 7.8 (2.0-8.3) x10*3/uL Absolute Nucleated RBC 0.000 (0.0-0.012) X10*3/uL Nucleated RBC % (auto) 0.0 (0.0-0.2) /100WBC Sodium 141 (135-145) mmol/L Potassium 4.1 (3.3-5.1) mmol/L Chloride 106 (96-108) mmol/L Carbon Dioxide 20 L (22-29) mmol/L Anion Gap 19 (12-20) BUN 24 H (9-16) mg/dL Creatinine 0.89 (0.5-1.4) mg/dL Estim Creat Clear Calc 99.1 Estimated GFR > 60 Random Glucose 187 H (60-115) mg/dL Calcium 9.6 D (8.4-10.2) mg/dL Magnesium 2.0 (1.6-2.6) mg/dL Total Bilirubin 0.8 (0.0-1.0) mg/dL AST 15 (5-37) U/L ALT 17 (0-40) U/L Alkaline Phosphatase 74 (39-117) U/L Troponin I High Sens (<3.5-35.0) ng/L Total Protein 6.8 (6.5-8.0) g/dL Albumin 4.4 (3.5-5.0) g/dL Urine Color Yellow Urine Appearance Clear Urine pH 7.5 (5.0-9.0) Ur Specific Simpson 1.025 (1.005-1.025) Urine Protein Trace (Neg-Trace) mg/dL Urine Glucose (UA) >=1000 H (Negative) mg/dL Urine Ketones Negative (Negative) mg/dL Urine Blood Trace H (Negative) Urine Nitrite Negative (Negative) Ur Leukocyte Esterase Negative (Negative) Urine RBC 3-5 H (0-2) /HPF Urine WBC 0-5 (0-5) /HPF Ur Squamous Epith Cells 0-2 (0-2) /HPF Urine Bacteria None Seen (None Seen) Hyaline Casts 0-2 (0-2) /LPF COVID-19 (RORY) (Negative) COVID-19 Clin Com 06/15/23 06/15/23 Range/Units 12:10 12:11 WBC (4.8-10.8) X10*3/uL RBC (4.60-5.80) X10*6/uL Hgb (14.0-18.0) g/dl Hct (42.0-52.0) % MCV (80.0-98.0) fL MCH (27.0-33.0) pg MCHC (31.0-36.0) g/dl RDW (11.0-16.0) % Plt Count (160-400) X10*3/uL MPV (9.4-12.4) fL Immature Gran % (Auto) (0.0-0.4) % Neut % (Auto) (45-73) % Lymph % (Auto) (20-40) % [place] % (Auto) (2-11) % Eos % (Auto) (0-4) % Baso % (Auto) (0-2) % Lymph # (Auto) (1.2-4.9) X10*3/uL [place] # (Auto) (0.1-1.2) X10*3/uL Eos # (Auto) (0.0-0.4) X10*3/uL Baso # (Auto) (0.0-0.2) X10*3/uL Abs Immat Gran (auto) (0.00-0.03) X10*3/uL Absolute Neuts (auto) (2.0-8.3) x10*3/uL Absolute Nucleated RBC (0.0-0.012) X10*3/uL Nucleated RBC % (auto) (0.0-0.2) /100WBC Sodium (135-145) mmol/L Potassium (3.3-5.1) mmol/L Chloride (96-108) mmol/L Carbon Dioxide (22-29) mmol/L Anion Gap (12-20) BUN (9-16) mg/dL Creatinine (0.5-1.4) mg/dL Estim Creat Clear Calc Estimated GFR Random Glucose (60-115) mg/dL Calcium (8.4-10.2) mg/dL Magnesium (1.6-2.6) mg/dL Total Bilirubin (0.0-1.0) mg/dL AST (5-37) U/L ALT (0-40) U/L Alkaline Phosphatase (39-117) U/L Troponin I High Sens 4.7 D (<3.5-35.0) ng/L Total Protein (6.5-8.0) g/dL Albumin (3.5-5.0) g/dL Urine Color Urine Appearance Urine pH (5.0-9.0) Ur Specific Simpson (1.005-1.025) Urine Protein (Neg-Trace) mg/dL Urine Glucose (UA) (Negative) mg/dL Urine Ketones (Negative) mg/dL Urine Blood (Negative) Urine Nitrite (Negative) Ur Leukocyte Esterase (Negative) Urine RBC (0-2) /HPF Urine WBC (0-5) /HPF Ur Squamous Epith Cells (0-2) /HPF Urine Bacteria (None Seen) Hyaline Casts (0-2) /LPF COVID-19 (RORY) Negative (Negative) COVID-19 Clin Com See Note Independent Interpretation I performed an independent interpretation of an: EKG and CT Scan Interpretation: My interpretation is in agreement with the radiologist's impression of this imaging study. EXAMINATION: CT ABDOMEN AND PELVIS WITH CONTRAST? CLINICAL INFORMATION: Abdominal pain. Nausea and vomiting.? COMPARISON: 02/07/2023 and 04/03/2022 TECHNIQUE: Multidetector volumetric images were obtained from the superior aspect of the liver through the pubic symphysis following administration 85 mL of Omnipaque 350 intravenous contrast. Sagittal and coronal reformatted images were obtained on the technologist's workstation.? Oral contrast: No This CT examination was performed using dose optimization techniques as appropriate, variously including the following: *Automated exposure control *Adjustment of mA and/or kV according to patient size (this includes techniques or standardized protocols for targeted exams where dose is matched to indication/reason for exam; i.e. extremities or head) *Use of iterative reconstruction technique DLP: 540 mGy-cm FINDINGS: LUNG BASES: Pleural-based right middle lobe 0.5 cm nodule on series 4 image 51. This is unchanged from the 2021 study, suggesting benign etiology. 0.5 cm pleural-based left lower lobe nodule on series 4 image 106 is also unchanged. Coronary artery calcifications. LIVER, GALLBLADDER, AND BILIARY TREE: The liver is normal in size, shape, and attenuation. Focal fatty infiltration along the falciform. No focal hepatic lesion or biliary ductal dilatation is present. The gallbladder is unremarkable with no evidence of radiopaque gallstones, gallbladder wall thickening, or obvious pericholecystic inflammatory changes.? PANCREAS: Unremarkable.? SPLEEN: Normal size with calcified granulomata present.? ADRENAL GLANDS: Unremarkable.? KIDNEYS AND URETERS: The kidneys are normal in size, shape, and attenuation. No hydronephrosis, hydroureter, or calculi seen. No perinephric stranding. Simple cyst at the upper pole of the left kidney. No specific follow-up recommended.? BLADDER: Unremarkable.? GASTROINTESTINAL TRACT: The stomach is unremarkable. Normal caliber of the small bowel. No obstruction. There is extensive colonic diverticulosis. No diverticulitis. No colonic wall thickening or acute inflammation. Normal appendix.? ABDOMINAL WALL: No significant hernia is appreciated.? LYMPH NODES: Normal. VASCULAR: Normal caliber aorta with moderate atherosclerotic calcification. Retroaortic left renal vein. PELVIC VISCERA: The prostate and seminal vesicles are unremarkable.? OSSEOUS STRUCTURES: No acute or suspicious osseous abnormality. Mild degenerative change throughout the spine.? CT/CT abdomen pelvis w IV con IMPRESSION: 1.? No acute findings in the abdomen or pelvis. No inflammatory changes. Extensive colonic diverticulosis without diverticulitis. 2.? Pleural-based right middle lobe and left lower lobe 0.5 cm nodules. These are unchanged since the 2021 study suggesting benign etiology. ? Fleischner guidelines were followed. Dictated By: Lion Monge MD Signed By: Electronically signed by Lion Monge MD 06/15/23 1503 Vent. Rate: 067 BPM ? ? Atrial Rate: 067 BPM P-R Int: 128 ms? QRS Dur: 132 ms QT Int: 452 ms ? ? ? P-R-T Axes: 057 052 057 degrees QTc Int: 477 ms ? Normal sinus rhythm Right bundle branch block Abnormal ECG When compared with ECG of 07-FEB-2023 16:15, No significant change was found DD/ 1157 Radiology Impression Discussion of test interpretation with radiology: I have reviewed the radiologist's reading. Independent Historian Clinical information obtained from an independent historian. History obtained from or confirmed by: EMS (EMS provided additional history and confirmed the history provided by the patient.) Prescription Management I considered prescription management with: Other (patient was prescribed an antiemetic medication.) Chronic Conditions Patient?s care impacted by: Diabetes and Hypertension Discharge Plan Discharge Clinical Impression: Nausea Patient Disposition: Home, Self-Care Instructions: Acute Nausea and Vomiting (ED), Acute Abdominal Pain (DC) Additional Instructions: Follow up with your primary care provider. Return to the emergency department immediately if your symptoms worsen or if you develop any dizziness, shortness of breath, difficulty breathing, chest pain, blurry vision, loss of vision, nausea, vomiting, abdominal pain, fever, chills, back pain, or any other co mplaints. Prescriptions: New ondansetron 4 mg tablet,disintegrating 4 mg PO Q8H 3 Days Qty: 9 0RF No Action ondansetron 4 mg tablet,disintegrating 4 mg PO Q8H Qty: 14 0RF dicyclomine 20 mg tablet 20 mg PO BID Qty: 14 0RF metoclopramide HCl [Reglan] 10 mg tablet 10 mg PO Q6H PRN (Reason: nausea and vomiting) Qty: 30 0RF Referrals: Vicente Thomason III, MD [Primary Care Provider] - Print Language: Burkinan
[2023-06-15 11:17] VITALS: BP 191/87; PULSE 100; RESP 20; TEMP 36.5; O2SAT 100; BMI 26.5
--- NOTE | 2023-06-15 11:21 | ECG_ITS ---
Test Reason : nausea/vomiting Blood Pressure : / mmHG Vent. Rate : 067 BPM Atrial Rate : 067 BPM P-R Int : 128 ms QRS Dur : 132 ms QT Int : 452 ms P-R-T Axes : 057 052 057 degrees QTc Int : 477 ms Normal sinus rhythm Right bundle branch block Abnormal ECG When compared with ECG of 07-FEB-2023 16:15, No significant change was found Referred By: Hilda Do Electronically Signed By:CLAUDIA BRIONES
[2023-06-15] MEDS: ondansetron HCL 4 MG/2 ML VIAL IVPUSH (11:25)
[2023-06-15] MEDS: 0.9 % Sodium Chloride 1,000 ML 999 ML IV ×2 (11:32→13:25)
[2023-06-15 11:34] LABS: Appearance Urine Clear; Color Urine Yellow; Glucose Urine UA >=1000 mg/dL (Negative); Leukocyte Esterase Urine Negative (Negative); Nitrite Urine Negative (Negative); PH 7.5 (5.0-9.0); Specific Gravity - Urine 1.025 (1.005-1.025); UMIC TRIGGER UACC YES; Urine Blood Trace (Negative); Urine Ketones Negative (Negative); Urine Protein Trace mg/dL (Neg-Trace)
[2023-06-15 11:41] LABS: Bacteria Urine None Seen (None Seen); Hyaline Casts Urine 0-2 /LPF (0-2); Squamous Epithelial Cell Urine 0-2 /HPF (0-2); WBC Urine 0-5 /HPF (0-5)
[2023-06-15 12:15] LABS: MANUAL DIFF FLAG NO
[2023-06-15 12:28] LABS: Basophils Absolute Auto 0.1 X10*3/uL (0.0-0.2); Basophils Percent Auto 0.7 % (0-2); Eosinophils Percent Auto 0.1 % (0-4); Hematocrit 44.5 % (42.0-52.0); Hemoglobin 15.4 g/dl (14.0-18.0); Imm Gran Abs Auto 0.04 X10*3/uL (0.00-0.03); Imm Gran Pct Auto 0.4 % (0.0-0.4); Lymphocytes Absolute Auto 0.9 X10*3/uL (1.2-4.9); Lymphocytes Percent Auto 10.2 % (20-40); Mean Corpuscular HGB Conc 34.6 g/dl (31.0-36.0); Mean Corpuscular Hemoglobin 29.8 pg (27.0-33.0); Mean Corpuscular Volume 86.1 fL (80.0-98.0); Mean Platelet Volume 9.2 fL (9.4-12.4); Monocytes Absolute Auto 0.3 X10*3/uL (0.1-1.2); Monocytes Percent Auto 3.6 % (2-11); Neutrophils Absolute Auto 7.8 x10*3/uL (2.0-8.3); Platelet Count 315 X10*3/uL (160-400); Red Blood Count 5.17 X10*6/uL (4.60-5.80); Red Cell Distribution Width 12.7 % (11.0-16.0); White Blood Count 9.1 X10*3/uL (4.8-10.8)
[2023-06-15 12:44] LABS: Alanine Aminotransferase 17 U/L (0-40); Albumin Level 4.4 g/dL (3.5-5.0); Alkaline Phosphatase 74 U/L (39-117); Anion Gap 19 (12-20); Aspartate Amino Transferase 15 U/L (5-37); Bilirubin Total 0.8 mg/dL (0.0-1.0); Blood Urea Nitrogen 24 mg/dL (9-16); Calcium 9.6 mg/dL (8.4-10.2); Carbon Dioxide 20 mmol/L (22-29); Chloride 106 mmol/L (96-108); Creatinine Clr Calc Pharmacy 99.1; Estimated Glomerular Filt Rate > 60; Glucose Random 187 mg/dL (60-115); Potassium 4.1 mmol/L (3.3-5.1); Sodium 141 mmol/L (135-145); Total Protein 6.8 g/dL (6.5-8.0)
[2023-06-15 12:54] LABS: Troponin-I High Sensitivity 4.7 ng/L (<3.5-35.0)
[2023-06-15 12:55] LABS: COVID-19 Test Negative (Negative); IDNOW Serial# 08D9AD1C
--- NOTE | 2023-06-15 13:02 | PC.NURSE ---
PT WITHOUT VOMITING IN ED, REPORTS CONTINUED NAUSEA AND ABD PAIN
[2023-06-15 13:26] VITALS: BP 188/75; PULSE 70; RESP 18; O2SAT 98
[2023-06-15] MEDS: iohexoL 350 MG/ML 100 ML INFUS..BTL 85 ML IV (14:02)
--- NOTE | 2023-06-15 15:03 | PC.NURSE ---
patient resting in bed, respirations qual and unlabored. pt shows no signs of distress able to make needs known.
[2023-06-15 15:30] VITALS: BP 113/68; PULSE 81; RESP 16; TEMP 37.1; O2SAT 99
== END 2023-06-15 15:42 | disposition home or self-care (01) ==
PROVIDERS: Physician Assistant Medical; Emergency Provider Emergency Medicine; PCP Internal Medicine
DX: R11.0 Nausea (principal); R10.9 Unspecified abdominal pain; I10 Essential (primary) hypertension; E11.9 Type 2 diabetes mellitus without complications; Z79.899 Other long term (current) drug therapy; Z20.822 Contact with and (suspected) exposure to COVID-19
CPT/HCPCS: 74177; 80053; 81001; 83735; 84484; 85025; 87635; 93005; 96361; 96374; 99284; 99285; J2405; Q9967

== ENCOUNTER → 2023-06-15 11:21 | Outpatient (BNV) | payer OTHER, SELFPAY | PROVIDERS: Emergency Provider Emergency Medicine; PCP Internal Medicine; Visit Provider Internal Medicine | DX: R94.31 Abnormal electrocardiogram [ECG] [EKG] (principal) | CPT/HCPCS: 93010 ==

== ENCOUNTER 2023-06-17 09:51 | Emergency (ER) | payer OTHER, SELFPAY ==
--- NOTE | ~2023-06-17 | XR_ITS ---
EXAMINATION: XR ABDOMEN KUB CLINICAL INDICATION: Abdominal pain COMPARISON: CT of 06/15/2023 TECHNIQUE: AP view of the abdomen. FINDINGS: The bowel gas pattern is normal with no evidence of ileus or obstruction. No unusual soft tissue calcifications are noted. The bones are unremarkable. XR/XR KUB IMPRESSION: Unremarkable examination.
[2023-06-17 10:14] VITALS: BP 182/76; BP 185/5; PULSE 71; PULSE 80; RESP 20; TEMP 36.9; O2SAT 100; BMI 25.5
[2023-06-17] MEDS: Ondansetron ODT 4 MG TAB.RAPDIS TRANSLINGU (10:50)
[2023-06-17 10:51] LABS: Appearance Urine Clear; Color Urine Yellow; Glucose Urine UA >=1000 mg/dL (Negative); Leukocyte Esterase Urine Negative (Negative); Nitrite Urine Negative (Negative); UMIC TRIGGER UACC YES; Urine Blood Small (1+) (Negative); Urine Ketones Trace mg/dL (Negative); Urine Protein Trace mg/dL (Neg-Trace)
[2023-06-17 10:58] LABS: Amphetamine Screen Urine Not Detected (Not Detect); Barbiturates, Urine Not Detected (Not Detect); Benzodiazepines Screen Urine Not Detected (Not Detect); Cannabinoid Screen Urine POSITIVE (Not Detect); Cocaine Screen Urine Not Detected (Not Detect); Fentanyl, urine Not Detected (Not Detect); Opiate Screen Urine Not Detected (Not Detect); Phencyclidine Screen Urine Not Detected (Not Detect)
--- NOTE | 2023-06-17 11:00 | PC.NURSE ---
Patient presenting for abdominal pain with nausea and vomiting. Patient is generally well appearing, complaining of some nausea still. Patient is alert and orient, calm and cooperative with staff.
[2023-06-17 11:06] LABS: Bacteria Urine None Seen (None Seen); Hyaline Casts Urine 0-2 /LPF (0-2); Squamous Epithelial Cell Urine 0-2 /HPF (0-2); WBC Urine 0-5 /HPF (0-5)
[2023-06-17 12:56] LABS: Glucose, Whole Blood 159 mg/dL (60-115)
--- NOTE | 2023-06-17 13:27 | ED.NAVMDI ---
HPI - Nausea/Vomiting/Diarrhea General Chief complaint: Nausea/Vomiting/Diarrhea Stated complaint: VOMITING,SEEN RECENTLY PER EMS Time Seen by Provider: 06/17/23 09:54 Source: patient History of Present Illness HPI Narrative: 53-year-old male who experience several episodes of nausea vomiting since this morning, he is been evaluated here for similar symptoms, endorses cannabis use as well as cigar smoking. States that today he felt chills and sweating while being nauseous and vomiting. Otherwise denies abdominal pain or urinary symptoms. Related Data Previous Rx's Medication Instructions Recorded dicyclomine 20 mg tablet 20 mg PO BID abd cramping #14 tabs 04/03/22 ondansetron 4 mg disintegrating 4 mg PO Q8H nausea/vomiting #14 04/03/22 tablet tabs metoclopramide HCl 10 mg tablet 10 mg PO Q6H PRN nausea and 02/07/23 (Reglan) vomiting #30 tabs ondansetron 4 mg disintegrating 4 mg PO Q8H 3 days #9 tabs 06/15/23 tablet Allergies Allergy/AdvReac Type Severity Reaction Status Date / Time No Known Allergies Allergy Verified 02/07/23 09:41 Review of Systems Review of Systems: Pertinent positives and negatives as stated in HPI PMFSH Past Medical History Source: nursing notes reviewed Surgical History H/O hernia repair Social History Social History Alcohol intake: former Smoked in Last 30 Days: Yes Use of substances other than those prescribed or required for medical reasons: Yes Substance Use Type: Marijuana Advance Directives: No Advance Directives Information Provided: No Physical Exam Vital Signs: Vital Signs: Last Vital Signs Temp 98.5 F 06/17/23 10:14 Pulse 71 06/17/23 10:14 Resp 20 06/17/23 10:14 BP 185/5 H 06/17/23 10:14 Pulse Ox 100 06/17/23 10:14 O2 Del Method Room Air 06/17/23 10:14 BMI result Body Mass Index 25.5 VITAL SIGNS: Reviewed. GENERAL: Well developed, well nourished, in no acute distress. HEAD: Normocephalic/atraumatic EYES: PERRLA, EOMI LUNGS: Normal breath sounds. No adventitious sounds or accessory muscle use. SpO2<100> CARDIOVASCULAR: Regular rate and rhythm without noted murmurs ABDOMEN: Soft, non-tender, non-distended with bowel sounds. MUSCULOSKELETAL: No tenderness, deformities, or effusions noted on gross inspection. EXTREMITIES: No cyanosis, clubbing or edema. SKIN: Inspection of the skin reveals no rashes NEUROLOGIC: Alert and oriented x 4. Strength and sensation to light touch were grossly intact x 4. Medications Administered Discontinued Medications Generic Name Dose Route Start Last Admin Trade Name Angeles PRN Reason Stop Dose Admin Ondansetron HCl 4 mg 06/17/23 09:54 06/17/23 10:50 Ondansetron Odt 4 Mg Tab.Rapdis TRANSLINGU 06/17/23 09:55 4 mg ONCE ONE Administration Medical Decision Making Medical Decision Making [facility] Narrative: 53-year-old male with history and clinical presentation after review prior visits to include lab work, imaging studies, my differential diagnosis is quite limited in that I think there is the remote possible noted by gastroenteritis/food poisoning verses hyperemesis cannabis. I reviewed the vital signs which demonstrate the patient is not febrile, KUB not significant for evidence to suggest obstruction and patient has continued to pass flatus and after treatment with a total of 8 mg of Zofran is no longer nauseous or vomiting. POC glucose although elevated is a reasonable level and no clinical suspicion for DKA or HHS. Urinalysis negative for infection and the hematuria is likely prostatic. I discussed extensively with the patient's his prior workups and the low likelihood of any life-threatening etiologies, he states that he has and a nausea medication at home, I counseled him on trying to scale back the amount of cannabis use to see if there is a good balance of where he can continue to use but not induce uncontrolled nausea and vomiting. He is otherwise discharged home in stable condition with a referral to follow-up with gastroenterology at his request. KUB negative for obstruction and my interpretation is otherwise in agreement with radiology's impression. Differential Diagnosis Differential Diagnoses: The differential diagnosis associated with the presentation includes Please see the discussion above Admission/Observation Consideration of admission/observation: Escalation of care including admission/observation considered Please see the discussion above Lab Data [facility] Lab Attestation statement: I reviewed the patient's lab results. Please see the discussion above Labs: Lab Results 06/17/23 06/17/2323 Range/Units 10:42 10:42 12:52 POC Glucose 159 H (60-115) mg/dL Urine Color Yellow Urine Appearance Clear Urine pH 8.0 (5.0-9.0) Ur Specific Mcnary 1.020 (1.005-1.025) Urine Protein Trace (Neg-Trace) mg/dL Urine Glucose (UA) >=1000 H (Negative) mg/dL Urine Ketones Trace (Negative) mg/dL Urine Blood Small (1+) H (Negative) Urine Nitrite Negative (Negative) Ur Leukocyte Esterase Negative (Negative) Urine RBC 6-10 H (0-2) /HPF Urine WBC 0-5 (0-5) /HPF Ur Squamous Epith Cells 0-2 (0-2) /HPF Urine Bacteria None Seen (None Seen) Hyaline Casts 0-2 (0-2) /LPF Urine Opiates Screen Not Detected (Not Detect) Urine Fentanyl Screen Not Detected (Not Detect) Ur Barbiturates Screen Not Detected (Not Detect) Ur Phencyclidine Scrn Not Detected (Not Detect) Ur Amphetamines Screen Not Detected (Not Detect) U Benzodiazepines Scrn Not Detected (Not Detect) Urine Cocaine Screen Not Detected (Not Detect) U Marijuana (THC) Screen POSITIVE H (Not Detect) External Record Review External record reviewed: Outpatient record, Prior outpatient labs and Prior outpatient radiology Discharge Plan Discharge Clinical Impression: Cyclical vomiting, Cannabis use disorder Patient Disposition: Home, Self-Care Instructions: Diet for Stomach Ulcers and Gastritis (ED), Cyclic Vomiting Syndrome (ED) Additional Instructions: 1. Resume all home medications as prescribed. 2. Recommend [id number] Mylanta for relief of stomach discomfort, stick to a bland diet for the next 24-48 hours. 3. Please find a referral to your primary care provider and a property and casualty insurance agent below. Return to the ER for any worsening symptoms. Prescriptions: No Action ondansetron 4 mg tablet,disintegrating 4 mg PO Q8H Qty: 14 0RF dicyclomine 20 mg tablet 20 mg PO BID Qty: 14 0RF metoclopramide HCl [Reglan] 10 mg tablet 10 mg PO Q6H PRN (Reason: nausea and vomiting) Qty: 30 0RF ondansetron 4 mg tablet,disintegrating 4 mg PO Q8H 3 Days Qty: 9 0RF Referrals: Vicente Thomason III, MD [Primary Care Provider] - Sweta Ballard MD [Physician] - (Cyclical vomiting)
[2023-06-17 14:00] VITALS: BP 132/65; PULSE 80; RESP 18; O2SAT 98
== END 2023-06-17 14:06 | disposition home or self-care (01) ==
PROVIDERS: Emergency Provider Student in an Organized Health Care Education/Training Program; PCP Internal Medicine
DX: R11.2 Nausea with vomiting, unspecified (principal); R19.7 Diarrhea, unspecified; F12.90 Cannabis use, unspecified, uncomplicated; R10.2 Pelvic and perineal pain; Z79.899 Other long term (current) drug therapy
CPT/HCPCS: 74018; 80307; 81001; 81003; 82947; 99284

== ENCOUNTER 2024-09-05 16:53 | Emergency (ER) | payer OTHER, SELFPAY ==
[2024-09-05 17:44] VITALS: BP 153/67; PULSE 91; RESP 16; TEMP 36.9; O2SAT 99; BMI 26.5
--- NOTE | 2024-09-05 17:45 | ED_ITS ---
HPI - Skin/Abscess/Foreign Bdy General Chief complaint: Skin/Abscess/Foreign Body Stated complaint: ?Spider bite Time Seen by Provider: 09/05/24 17:59 Source: patient, RN notes reviewed and old records reviewed Mode of arrival: ambulatory History of Present Illness ED Provider: Jing Bates PA-C HPI narrative: 54-year-old male with a past medical history HTN, diabetes, presenting to the ED complaining of right medial thigh infection x 3 days. Reports increasing pain/swelling noted to area worsening over the past few days. Admits to suspected spider bite, denies witnessing spider or insect bite. Reports subjective fever/chills. Denies difficulty or inability to urinate or have BM, abdominal pain, nausea/vomiting. Related Data Previous Rx's ?Medication ?Instructions ?Recorded dicyclomine 20 mg tablet 20 mg PO BID abd cramping #14 tabs 04/03/22 ondansetron 4 mg disintegrating 4 mg PO Q8H nausea/vomiting #14 04/03/22 tablet tabs metoclopramide HCl 10 mg tablet 10 mg PO Q6H PRN nausea and 02/07/23 (Reglan) vomiting #30 tabs ondansetron 4 mg disintegrating 4 mg PO Q8H 3 days #9 tabs 06/15/23 tablet cephalexin 500 mg capsule 500 mg PO QID 7 days #28 caps 09/05/24 doxycycline hyclate 100 mg tablet 100 mg PO BID 7 days #14 tabs 09/05/24 Allergies Allergy/AdvReac Type Severity Reaction Status Date / Time No Known Allergies Allergy Verified 09/05/24 17:44 Review of Systems 2 Review of Systems: Yes all other systems are reviewed and are negative Constitutional: Constitutional: Reports as per HPI [facility] Past Medical History Attestation statement: The following information was validated with the patient. Source: old records reviewed Surgical History H/O hernia repair Social History Social History Alcohol intake: former Substance Use Type: Marijuana Advance Directives: No Advance Directives Information Provided: Yes Do you have a plan to hurt others: No Plan Physical Exam 2 Vital Signs: Vital Signs: Last Vital Signs Temp 98.5 F 09/05/24 17:44 Pulse 91 09/05/24 17:44 Resp 16 09/05/24 17:44 BP 153/67 H 09/05/24 17:44 Pulse Ox 99 09/05/24 17:44 O2 Del Method Room Air 09/05/24 17:44 BMI result Body Mass Index 26.5 Const: General: cooperative, healthy appearing and no acute distress O rientation/consciousness: patient oriented x3 Limitations: no limitations HEENT: Head: Yes normal to inspection and Yes atraumatic Ears: hearing grossly normal bilaterally General nose exam: Normal external nose present Face and sinus: Yes normal facial exam Eyes: General: appearance normal, both eyes and all related structures EOM: EOMs intact bilaterally Neck: Neck: Yes normal visual inspection and Yes no meningeal signs Resp: Effort & Inspection: normal respiratory effort and no respiratory distress Cardio: Rate: regular rate Skin: Other: + fluctuant and indurated abscess with 2 necrotic areas noted to right proximal medial thigh with surrounding cellulitis. Tender to palpation. No crepitus. Neuro: General: patient oriented x3, tone normal and no meningeal signs C ranial nerves: Yes CN's II-XII intact bilaterally Gait exam (Neuro): Normal gait present Extrem: General: Yes normal to inspection Course Course Course Narrative: This is a rapid medical exam performed by Ghazal Rodríguez PA-C. The patient is a 54-year-old male with history of hypertension and diabetes, presenting with right thigh infection x2 days. Patient states he woke Wednesday morning with a burning sensation in the right groin. His discomfort progressed, when he looked at the area, he thought it resembled a ?spider bite?. On exam, there are 2 raised, necrotic, lesions over right upper thigh near the inguinal region, with overlying erythema that radiates distally. Given 2 necrotic lesions that are in close proximity to 1 another, it could be a spider bite. We will screen basic labs at this time, the patient likely requires incision and drainage, he is afebrile at this time. He is stable in can return to the waiting room pending his full assessment. -leukocytosis of 13.5 -labs otherwise reassuring > I & D performed at bedside. w/success Results discussed with patient including worrisome signs and symptoms and strict return precautions, and when to return to the emergency department. They verbalized understanding and feel safe for discharge at this time. Medications Administered Discontinued Medications Generic Name Dose Route Start Last Admin Trade Name Frankq PRN Reason Stop Dose Admin Lidocaine HCl 5 ml 09/05/24 17:59 09/05/24 18:19 Lidocaine Hcl 1 % Mpf 5 Ml Vial INFILTRATI 09/05/24 18:00 5 ml ONCE ONE Administration Medical Decision Making Medical Decision Making [facility] Narrative: 54-year-old male with a past medical history HTN, diabetes, presenting to the ED complaining of right medial thigh infection x 3 days. On exam vital signs stable, NAD, nontoxic appearing, physical exam as noted above, suspect spider bite now with superimposed abscess/cellulitis. Low suspicion for deeper/trapping infection or Shanika's gangrene. Low suspicion for necrotizing fasciitis. Low suspicion for severe sepsis Plan: I & D. Labs ordered in triage Please refer to course for remaining clinical decision making, interpretation of labs/imaging results, and discussions with consultants and/or family members. Differential Diagnosis Differential Diagnoses: The differential diagnosis associated with the presentation includes As above Admission/Observation Consideration of admission/observation: Escalation of care including admission/observation considered Lab Data [facility] Lab Attestation statement: I reviewed the patient's lab results. 09/05/24 17:53 09/05/24 17:53 Labs: Lab Results 09/05/24 Range/Units 17:53 WBC 13.5 H (4.8-10.8) X10*3/uL RBC 4.54 L (4.60-5.80) X10*6/uL Hgb 13.6 L (14.0-18.0) g/dl Hct 39.0 L (42.0-52.0) % MCV 85.9 (80.0-98.0) fL MCH 30.0 (27.0-33.0) pg MCHC 34.9 (31.0-36.0) g/dl RDW 13.1 (11.0-16.0) % Plt Count 291 (160-400) X10*3/uL MPV 9.1 L (9.4-12.4) fL Immature Gran % (Auto) 0.3 (0.0-0.4) % Neut % (Auto) 81.8 H (45-73) % Lymph % (Auto) 11.7 L (20-40) % Marin % (Auto) 5.1 (2-11) % Eos % (Auto) 0.8 (0-4) % Baso % (Auto) 0.3 (0-2) % Lymph # (Auto) 1.6 (1.2-4.9) X10*3/uL Marin # (Auto) 0.7 (0.1-1.2) X10*3/uL Eos # (Auto) 0.1 (0.0-0.4) X10*3/uL Baso # (Auto) 0.0 (0.0-0.2) X10*3/uL Abs Immat Gran (auto) 0.04 H (0.00-0.03) X10*3/uL Absolute Neuts (auto) 11.1 H (2.0-8.3) x10*3/uL Absolute Nucleated RBC 0.000 (0.0-0.012) X10*3/uL Nucleated RBC % (auto) 0.0 (0.0-0.2) /100WBC Sodium 137 (135-145) mmol/L Potassium 3.7 (3.3-5.1) mmol/L Chloride 104 (96-108) mmol/L Carbon Dioxide 25 (22-29) mmol/L Anion Gap 12 (12-20) BUN 23 H (9-16) mg/dL Creatinine 1.17 (0.5-1.4) mg/dL Estim Creat Clear Calc 74.5 Estimated GFR > 60 Random Glucose 233 H (60-115) mg/dL Calcium 9.7 (8.4-10.2) mg/dL Magnesium 2.1 (1.6-2.6) mg/dL Total Bilirubin 0.5 (0.0-1.0) mg/dL AST 17 (5-37) U/L ALT 17 (0-40) U/L Alkaline Phosphatase 70 (39-117) U/L Total Protein 7.1 (6.5-8.0) g/dL Albumin 4.7 (3.5-5.0) g/dL Radiology Impression Discussion of test interpretation with radiology: I have reviewed the radiologist's reading. External Record Review External record reviewed: Inpatient record, Office record, Outpatient record, Prior outpatient labs, Prior outpatient radiology, Primary care record and Outside ED record Tests considered The following testing was considered but not selected: As above Chronic Conditions Patient?s care impacted by: Diabetes and Hypertension Procedures Abscess I/D Site: lower extremity Side (if applicable): right Local Anesthetic: lidocaine 1% Amount of anesthesia used (mL): 5 Technique: incised with blade Sent for culture/gram staining?: No Irrigation: No Packing used?: none Discharge Plan Discharge Clinical Impression: Spider bite, Cellulitis, Abscess Patient Disposition: Home, Self-Care Instructions: Cellulitis (DC), Abscess (ED) Additional Instructions: Your abscess was drained today in the emergency department Doxycycline and Keflex are antibiotics please take as prescribed Please apply warm compresses If area continues to worsen, smell, redness is spreading, you have fevers, or unremitting pain return to the emergency department Please have close follow-up with her doctor in 2 days for re-evaluation Prescriptions: New cephalexin 500 mg capsule 500 mg PO QID 7 Days Qty: 28 0RF doxycycline hyclate 100 mg tablet 100 mg PO BID 7 Days Qty: 14 0RF No Action ondansetron 4 mg tablet,disintegrating 4 mg PO Q8H Qty: 14 0RF dicyclomine 20 mg tablet 20 mg PO BID Qty: 14 0RF metoclopramide HCl [Reglan] 10 mg tablet 10 mg PO Q6H PRN (Reason: nausea and vomiting) Qty: 30 0RF ondansetron 4 mg tablet,disintegrating 4 mg PO Q8H 3 Days Qty: 9 0RF Referrals: Vicente Thomason III, MD [Primary Care Provider] - 5 days Print Language: Serbian
[2024-09-05 17:58] LABS: MANUAL DIFF FLAG NO
[2024-09-05 18:04] LABS: Basophils Percent Auto 0.3 % (0-2); Eosinophils Absolute Auto 0.1 X10*3/uL (0.0-0.4); Eosinophils Percent Auto 0.8 % (0-4); Hemoglobin 13.6 g/dl (14.0-18.0); Imm Gran Abs Auto 0.04 X10*3/uL (0.00-0.03); Imm Gran Pct Auto 0.3 % (0.0-0.4); Lymphocytes Absolute Auto 1.6 X10*3/uL (1.2-4.9); Lymphocytes Percent Auto 11.7 % (20-40); Mean Corpuscular HGB Conc 34.9 g/dl (31.0-36.0); Mean Corpuscular Volume 85.9 fL (80.0-98.0); Mean Platelet Volume 9.1 fL (9.4-12.4); Monocytes Absolute Auto 0.7 X10*3/uL (0.1-1.2); Monocytes Percent Auto 5.1 % (2-11); Neutrophils Absolute Auto 11.1 x10*3/uL (2.0-8.3); Neutrophils Percent Auto 81.8 % (45-73); Platelet Count 291 X10*3/uL (160-400); Red Blood Count 4.54 X10*6/uL (4.60-5.80); Red Cell Distribution Width 13.1 % (11.0-16.0); White Blood Count 13.5 X10*3/uL (4.8-10.8)
[2024-09-05 18:19] LABS: Alanine Aminotransferase 17 U/L (0-40); Albumin Level 4.7 g/dL (3.5-5.0); Alkaline Phosphatase 70 U/L (39-117); Anion Gap 12 (12-20); Aspartate Amino Transferase 17 U/L (5-37); Bilirubin Total 0.5 mg/dL (0.0-1.0); Blood Urea Nitrogen 23 mg/dL (9-16); Calcium 9.7 mg/dL (8.4-10.2); Carbon Dioxide 25 mmol/L (22-29); Chloride 104 mmol/L (96-108); Creatinine Clr Calc Pharmacy 74.5; Estimated Glomerular Filt Rate > 60; Glucose Random 233 mg/dL (60-115); Magnesium 2.1 mg/dL (1.6-2.6); Potassium 3.7 mmol/L (3.3-5.1); Sodium 137 mmol/L (135-145); Total Protein 7.1 g/dL (6.5-8.0)
[2024-09-05] MEDS: Lidocaine HCl 1 % MPF 5 ML VIAL INFILTRATI (18:19)
[2024-09-05] MEDS: Doxycycline Monohydrate 100 MG CAPSULE PO (19:02)
[2024-09-05] MEDS: cephALEXin 500 MG CAPSULE PO (19:03)
[2024-09-05 19:11] VITALS: BP 153/67; PULSE 91; RESP 16; TEMP 36.9; O2SAT 99
== END 2024-09-05 19:12 | disposition home or self-care (01) ==
PROVIDERS: Physician Assistant Medical; Emergency Provider Emergency Medicine Emergency Medical Services; PCP Internal Medicine
DX: L02.415 Cutaneous abscess of right lower limb (principal); Z79.899 Other long term (current) drug therapy
CPT/HCPCS: 10060; 36415; 80053; 83735; 85025; 99283; 99284; J2003

== ENCOUNTER 2025-03-22 22:29 | Emergency (ER) | payer OTHER, SELFPAY ==
--- NOTE | ~2025-03-22 | CT_ITS ---
CLINICAL HISTORY: n v upper abdominal pain lipase elevated CT abdomen and pelvis with contrast Comparison: CT - CT ABDOMEN PELVIS W IV CON - 03/22/25 23:41 EDT Findings: Minor atelectasis at both lung bases. Small left superior renal cyst. Hypodense liver. No lesions. Gallbladder and solid organs otherwise unremarkable. No bowel obstruction, pneumoperitoneum, or pneumatosis. Mesenteric vessels patent. Moderate colonic diverticulosis without diverticulitis. Normal appendix. Mild urinary bladder distention. The bones are intact. IMPRESSION: 1. No CT evidence of pancreatitis. CT findings can lag behind serologic findings. 2. Hepatic steatosis. 3. Additional nonacute findings as above. This document has been electronically signed by: Marisol Parikh MD on 03/23/2025 00:46:56
[2025-03-22 22:33] VITALS: BP 139/71; PULSE 99; RESP 20; TEMP 36.7; O2SAT 99; BMI 28.1
[2025-03-22] MEDS: Ondansetron ODT 4 MG TAB.RAPDIS TRANSLINGU (22:39)
[2025-03-22 22:58] LABS: MANUAL DIFF FLAG NO
[2025-03-22 22:59] LABS: Basophils Percent Auto 0.2 % (0-2); Eosinophils Percent Auto 0.1 % (0-4); Hematocrit 39.6 % (42.0-52.0); Hemoglobin 13.8 g/dl (14.0-18.0); Imm Gran Abs Auto 0.06 X10*3/uL (0.00-0.03); Imm Gran Pct Auto 0.4 % (0.0-0.4); Lymphocytes Absolute Auto 1.2 X10*3/uL (1.2-4.9); Lymphocytes Percent Auto 8.6 % (20-40); Mean Corpuscular HGB Conc 34.8 g/dl (31.0-36.0); Mean Corpuscular Hemoglobin 28.9 pg (27.0-33.0); Mean Corpuscular Volume 82.8 fL (80.0-98.0); Mean Platelet Volume 8.9 fL (9.4-12.4); Monocytes Absolute Auto 1.1 X10*3/uL (0.1-1.2); Monocytes Percent Auto 7.3 % (2-11); Neutrophils Percent Auto 83.4 % (45-73); Platelet Count 320 X10*3/uL (160-400); Red Blood Count 4.78 X10*6/uL (4.60-5.80); Red Cell Distribution Width 13.6 % (11.0-16.0); White Blood Count 14.4 X10*3/uL (4.8-10.8)
[2025-03-22 23:15] LABS: Alanine Aminotransferase 24 U/L (0-40); Albumin Level 4.7 g/dL (3.5-5.0); Alkaline Phosphatase 64 U/L (39-117); Anion Gap 20 (12-20); Aspartate Amino Transferase 32 U/L (5-37); Bilirubin Total 0.5 mg/dL (0.0-1.0); Blood Urea Nitrogen 28 mg/dL (9-16); Calcium 11.2 mg/dL (8.4-10.2); Carbon Dioxide 20 mmol/L (22-29); Chloride 100 mmol/L (96-108); Creatinine Clr Calc Pharmacy 77.8; Estimated Glomerular Filt Rate > 60; Glucose Random 260 mg/dL (60-115); Potassium 4.2 mmol/L (3.3-5.1); Sodium 136 mmol/L (135-145); Total Protein 7.1 g/dL (6.5-8.0)
[2025-03-22 23:26] LABS: Lipase 391 U/L (8-78)
[2025-03-22] MEDS: Prochlorperazine Edisylate 10 MG/2 ML VIAL IVPUSH (23:31)
[2025-03-22] MEDS: diphenhydrAMINE HCL 50 MG/ML VIAL 25 MG IVPUSH (23:31)
[2025-03-22] MEDS: Famotidine/PF 20 MG/2 ML VIAL IVPUSH (23:31)
[2025-03-22] MEDS: Lactated Ringers 1,000 ML 999 ML IV (23:32)
--- NOTE | 2025-03-22 23:33 | ED_ITS ---
HPI - Nausea/Vomiting/Diarrhea General Chief complaint: Nausea/Vomiting/Diarrhea Stated complaint: dehydrated, upset stomach Time Seen by Provider: 03/22/25 22:56 Source: patient, family and old records reviewed Mode of arrival: ambulatory Limitations: no limitations History of Present Illness ED Provider: REED HARRELL Narrative: 54 yo male with PMH of DM on trulicity which his GI doctor blames his GI symptoms on, HTN, anxiety who was outside working after his trulicity injection started with abdominal cramps n/v/d and all starting yesterday. No fevers. No bloody stools. He did try hydroxyzine [employer] but no improvement. He has had this 3 times so far and has to come to the ED. They continue his trulicity injections as it helps his blood sugars. He does not drink ETOH. He feels dehydrated. No travel, procedures, recent abx use. MD elicited complaint: nausea, vomiting, diarrhea and abdominal pain Pertinent past history: other Onset (ago): day(s) (1) Description of vomiting: watery Associated nausea: Yes Associated abdominal pain: Yes Location of pain: diffuse Radiation: diffuse Pain consistency: intermittent Severity: moderate Quality: aching Exacerbating factors: eating and vomiting Relieving factors: none Context: other (hx of similar episodes) Associated symptoms: loss of appetite, malaise, nausea/vomiting and weakness Treatment prior to arrival: other Related Data Previous Rx's ?Medication ?Instructions ?Recorded dicyclomine 20 mg tablet 20 mg PO BID abd cramping #14 tabs 04/03/22 ondansetron 4 mg disintegrating 4 mg PO Q8H nausea/vomiting #14 04/03/22 tablet tabs metoclopramide HCl 10 mg tablet 10 mg PO Q6H PRN nausea and 02/07/23 (Reglan) vomiting #30 tabs ondansetron 4 mg disintegrating 4 mg PO Q8H 3 days #9 tabs 06/15/23 tablet cephalexin 500 mg capsule 500 mg PO QID 7 days #28 caps 09/05/24 doxycycline hyclate 100 mg tablet 100 mg PO BID 7 days #14 tabs 09/05/24 ondansetron 4 mg disintegrating 4 mg PO Q8H PRN nausea and 03/23/25 tablet vomiting #20 tabs Allergies Allergy/AdvReac Type Severity Reaction Status Date / Time No Known Allergies Allergy Verified 03/22/25 22:35 Review of Systems 2 Review of Systems: Constitutional : No Weight loss, No Fever, No Chills ENT/Mouth : No sore throat, No Rhinorrhea Eyes: No Swelling, No Redness Cardiovascular : No Chest Pain, No SOB, NoEdema Respiratory : No Cough, No Sputum, No Wheezing Gastrointestinal : Positive Nausea, Positive Vomiting, positive Diarrhea, positive abdominal Pain, No Hematochezia, No Melena Genitourinary : No Dysuria, No Urinary Frequency, No Hematuria, No Urgency Musculoskeletal : No joint pain, No Myalgias, No Joint Swelling Skin : No Skin Lesions, No rash Neuro : No Weakness, No Numbness, No Dizziness, No Headache All other systems reviewed and are negative. Gastrointestinal: Gastrointestinal: Reports nausea PMFSH Past Medical History Attestation statement: The following information was validated with the patient. Source: old records reviewed Medical History (Updated 03/23/25 @ 01:33 by Honey Scales DO) Hypertension Diabetes Anxiety Surgical History H/O hernia repair Social History Social History Alcohol intake: former Substance Use Type: Marijuana Advance Directives: No Advance Directives Information Provided: Yes Physical Exam 2 Vital Signs: Vital Signs: Last Vital Signs Temp 98.1 F 03/23/25 00:59 Pulse 78 03/23/25 00:59 Resp 16 03/23/25 00:59 BP 109/58 L 03/23/25 00:59 Pulse Ox 97 03/23/25 00:59 O2 Del Method Room Air 03/23/25 00:59 BMI result Body Mass Index 28.1 Appearance: Alert. Oriented X3. No acute distress. Eyes: Pupils equal, round and reactive to light. ENT: Pharynx normal. Neck: Normal inspection. Neck supple. CVS: Normal heart rate and rhythm. Pulses normal. Respiratory: No respiratory distress. Breath sounds normal. Abdomen: Soft and mild diffuse ttp no rebound or guarding Skin: Skin warm and dry. Normal skin color. Normal skin turgor. Extremities: No lower extremity edema. No calf ttp Neuro: Oriented X 3. No motor deficit. No sensory deficit. CN2-12 intact Course Course Course Narrative: pain improved sleeping Medications Administered Discontinued Medications Generic Name Dose Route Start Last Admin Trade Name [place] PRN Reason Stop Dose Admin Diphenhydramine HCl 25 mg 03/22/25 23:09 03/22/25 23:31 Diphenhydramine Hcl 50 Mg/Ml Vial IVPUSH 03/22/25 23:10 25 mg ONCE ONE Administration Famotidine 20 mg 03/22/25 23:09 03/22/25 23:31 Famotidine/Pf 20 Mg/2 Ml Vial IVPUSH 03/22/25 23:10 20 mg ONCE ONE Administration Lactated Ringer's 1,000 mls @ 999 mls/hr 03/22/25 23:09 03/22/25 23:32 Lr IV 03/23/25 00:09 999 mls/hr .Q1H1M ONE Administration Lactated Ringer's 1,000 mls @ 999 mls/hr 03/22/25 23:31 03/23/25 00:27 Lr IV 03/23/25 00:31 999 mls/hr .Q1H1M ONE Administration Iohexol 85 ml 03/22/25 23:57 03/22/25 23:57 Iohexol 350 Mg/Ml 100 Ml Infus..Btl IV 03/22/25 23:58 85 ml ONCE ONE Administration Ondansetron HCl 4 mg 03/22/25 22:36 03/22/25 22:39 Ondansetron Odt 4 Mg Tab.Rapdis TRANSLINGU 03/22/25 22:37 4 mg ONCE ONE Administration Prochlorperazine Edisylate 10 mg 03/22/25 23:09 03/22/25 23:31 Prochlorperazine Edisylate 10 Mg/2 Ml Vial IVPUSH 03/22/25 23:10 10 mg ONCE ONE Administration Medical Decision Making Medical Decision Making MDM Narrative: 54 yo male with PMH of DM on trulicity which his GI doctor blames his GI symptoms on, HTN, anxiety who presents with diffuse abdominal pain n/v and diarrhea he denies any other risk factors states he had similar episodes in past with his trulicity at this time will obtain labs and hydrate x 2L. He will get CT scan for any lab derangements. Possible viral syndrome, gastritis, pancreatitis, med reaction, dehydration. Differential Diagnosis Differential Diagnoses: The differential diagnosis associated with the presentation includes viral syndrome, gastritis, dehydration, pancreatitis Admission/Observation Consideration of admission/observation: Escalation of care including admission/observation considered feels much better lipase downtrending calcium downtrending suspect dehydration CT scan normal will DC home with precautions and hydration reccomendations Lab Data MDM Lab Attestation statement: I reviewed the patient's lab results. 03/22/25 22:52 03/23/25 01:09 Labs: Lab Results 03/22/25 03/23/25 Range/Units 22:52 01:09 WBC 14.4 H (4.8-10.8) X10*3/uL RBC 4.78 (4.60-5.80) X10*6/uL Hgb 13.8 L (14.0-18.0) g/dl Hct 39.6 L (42.0-52.0) % MCV 82.8 (80.0-98.0) fL MCH 28.9 (27.0-33.0) pg MCHC 34.8 (31.0-36.0) g/dl RDW 13.6 (11.0-16.0) % Plt Count 320 (160-400) X10*3/uL MPV 8.9 L (9.4-12.4) fL Immature Gran % (Auto) 0.4 (0.0-0.4) % Neut % (Auto) 83.4 H (45-73) % Lymph % (Auto) 8.6 L (20-40) % Trigg % (Auto) 7.3 (2-11) % Eos % (Auto) 0.1 (0-4) % Baso % (Auto) 0.2 (0-2) % Lymph # (Auto) 1.2 (1.2-4.9) X10*3/uL Trigg # (Auto) 1.1 (0.1-1.2) X10*3/uL Eos # (Auto) 0.0 (0.0-0.4) X10*3/uL Baso # (Auto) 0.0 (0.0-0.2) X10*3/uL Abs Immat Gran (auto) 0.06 H (0.00-0.03) X10*3/uL Absolute Neuts (auto) 12.0 H (2.0-8.3) x10*3/uL Absolute Nucleated RBC 0.000 (0.0-0.012) X10*3/uL Nucleated RBC % (auto) 0.0 (0.0-0.2) /100WBC Sodium 136 137 (135-145) mmol/L Potassium 4.2 4.5 (3.3-5.1) mmol/L Chloride 100 102 (96-108) mmol/L Carbon Dioxide 20 L 24 (22-29) mmol/L Anion Gap 20 16 (12-20) BUN 28 H 27 H (9-16) mg/dL Creatinine 1.18 1.14 (0.5-1.4) mg/dL Estim Creat Clear Calc 77.8 80.5 Estimated GFR > 60 > 60 Random Glucose 260 H 195 H (60-115) mg/dL Calcium 11.2 H D 10.6 H (8.4-10.2) mg/dL Total Bilirubin 0.5 (0.0-1.0) mg/dL AST 32 (5-37) U/L ALT 24 (0-40) U/L Alkaline Phosphatase 64 (39-117) U/L Total Protein 7.1 (6.5-8.0) g/dL Albumin 4.7 (3.5-5.0) g/dL Lipase 391 H 220 H (8-78) U/L Ethyl Alcohol < 10 mg/dL Independent Interpretation I performed an independent interpretation of an: CT Scan (no acute cause of pain) Radiology Impression Discussion of test interpretation with radiology: I have reviewed the radiologist's reading. Independent Historian Clinical information obtained from an independent historian. History obtained from or confirmed by: Spouse External Record Review External record reviewed: Inpatient record and Outpatient record Prescription Management I considered prescription management with: Other Discharge Plan Discharge Clinical Impression: Nausea & vomiting, Abdominal pain, Acute dehydration Patient Disposition: Home, Self-Care Instructions: Dehydration (ED), Acute Nausea and Vomiting (DC), Abdominal Pain (ED) Additional Instructions: repeat labs improved though still slight dehydration drink plenty of fluids repeat calcium level with primary care doctor by Wednesday/Wednesday return for pain, fevers, worsening symptoms, unable to eat or drink or any other concerns. Prescriptions: New ondansetron 4 mg tablet,disintegrating 4 mg PO Q8H PRN (Reason: nausea and vomiting) Qty: 20 0RF No Action ondansetron 4 mg tablet,disintegrating 4 mg PO Q8H Qty: 14 0RF dicyclomine 20 mg tablet 20 mg PO BID Qty: 14 0RF cephalexin 500 mg capsule 500 mg PO QID 7 Days Qty: 28 0RF doxycycline hyclate 100 mg tablet 100 mg PO BID 7 Days Qty: 14 0RF metoclopramide HCl [Reglan] 10 mg tablet 10 mg PO Q6H PRN (Reason: nausea and vomiting) Qty: 30 0RF ondansetron 4 mg tablet,disintegrating 4 mg PO Q8H 3 Days Qty: 9 0RF Stand Alone Forms: Work/School Release Print Language: Italian
[2025-03-22] MEDS: iohexoL 350 MG/ML 100 ML INFUS..BTL 85 ML IV (23:57)
[2025-03-23] MEDS: Lactated Ringers 1,000 ML 999 ML IV (00:27)
[2025-03-23 00:51] LABS: Ethanol < 10 mg/dL
[2025-03-23 00:59] VITALS: BP 109/58; PULSE 78; RESP 16; TEMP 36.7; O2SAT 97
[2025-03-23 01:25] LABS: Lipase 220 U/L (8-78)
[2025-03-23 01:26] LABS: Anion Gap 16 (12-20); Blood Urea Nitrogen 27 mg/dL (9-16); Calcium 10.6 mg/dL (8.4-10.2); Carbon Dioxide 24 mmol/L (22-29); Chloride 102 mmol/L (96-108); Creatinine Clr Calc Pharmacy 80.5; Estimated Glomerular Filt Rate > 60; Glucose Random 195 mg/dL (60-115); Potassium 4.5 mmol/L (3.3-5.1); Sodium 137 mmol/L (135-145)
[2025-03-23 01:50] VITALS: BP 109/58; PULSE 78; RESP 16; TEMP 36.7; O2SAT 97
== END 2025-03-23 01:54 | disposition home or self-care (01) ==
PROVIDERS: Emergency Provider Emergency Medicine; PCP Internal Medicine
DX: E86.0 Dehydration (principal); R11.2 Nausea with vomiting, unspecified; R10.10 Upper abdominal pain, unspecified; E11.9 Type 2 diabetes mellitus without complications; I10 Essential (primary) hypertension; Z79.899 Other long term (current) drug therapy; Z79.85 Long-term (current) use of injectable non-insulin antidiabetic drugs
CPT/HCPCS: 36415; 74177; 80048; 80053; 80307; 83690; 85025; 96374; 96375; 99284; J0737; J1200; J1308; J7120; Q9967

== ENCOUNTER → 2025-03-22 23:31 | Outpatient (BNV) | payer OTHER, SELFPAY | PROVIDERS: Emergency Provider Emergency Medicine; PCP Internal Medicine; Visit Provider Radiology Diagnostic Radiology | DX: K76.0 Fatty (change of) liver, not elsewhere classified (principal) | CPT/HCPCS: 74177 ==

== ENCOUNTER 2025-03-25 09:36 | Emergency (ER) | payer OTHER, SELFPAY ==
--- NOTE | 2025-03-25 | ECG_ITS ---
Test Reason : ABDOMINAL PAIN Blood Pressure : */* mmHG Vent. Rate : 60 BPM Atrial Rate : 60 BPM P-R Int : 116 ms QRS Dur : 134 ms QT Int : 432 ms P-R-T Axes : 71 46 42 degrees QTcB Int : 432 ms Normal sinus rhythm Right bundle branch block Abnormal ECG When compared with ECG of 15-Jun-2023 11:57, No significant change was found Referred By: Lizett Overton Electronically Signed By: JORDYN BARONE MD
[2025-03-25 09:51] VITALS: BP 170/79; BP 196/83; PULSE 71; PULSE 75; RESP 22; TEMP 36.9; O2SAT 100; O2SAT 99; BMI 25.8
--- NOTE | 2025-03-25 09:58 | ED_ITS ---
HPI - Nausea/Vomiting/Diarrhea General Chief complaint: Nausea/Vomiting/Diarrhea Stated complaint: n/v Time Seen by Provider: 03/25/25 09:39 Source: patient and EMS Mode of arrival: EMS Limitations: no limitations History of Present Illness ED Provider: JACKI PETERS PA-C HPI Narrative: 54-year-old male with pmhx significant for hypertension, diabetes on Trulicity, Harrison's esophagus presents to the ED today via EMS from home for evaluation of nausea, vomiting, abdominal pain on waking this morning. Reports feeling generally unwell for the past 5 days. After spending the day in the sun, patient began to experience nausea, vomiting and abdominal pain. He suspects this occurs as a side effect to his Trulicity which he has been on for years. No recent changes to this medication. He was evaluated at our facility for this on 03/22/2025 (3 days ago) with essentially unremarkable workup. He was treated with fluids and IV medications with significant improvement in symptoms. He was discharged home. He states he felt well yesterday. Was tolerating p.o. intake. Woke up this morning with continued symptoms. Admits to multiple episodes of nonbloody emesis, now dry heaving. Pain localized to epigastric region. Took a Tums this morning without relief. Able to tolerate water and Powerade. Normal BM this morning. Last PO intake last night. Denies known sick contacts. Denies history of abdominal surgery. Admits to course of antibiotics months ago for sialadenitis. No other antibiotics. No travel outside the country. No fever, chills, urinary sx.Denies history of pancreatitis. Admits to remote EtOH consumption, quit drinking years ago. Admits to smoking marijuana every night prior to bed. States he has not smoked marijuana in a few days. Related Data Previous Rx's ?Medication ?Instructions ?Recorded dicyclomine 20 mg tablet 20 mg PO BID abd cramping #14 tabs 04/03/22 ondansetron 4 mg disintegrating 4 mg PO Q8H nausea/vomiting #14 04/03/22 tablet tabs metoclopramide HCl 10 mg tablet 10 mg PO Q6H PRN nausea and 02/07/23 (Reglan) vomiting #30 tabs ondansetron 4 mg disintegrating 4 mg PO Q8H 3 days #9 tabs 06/15/23 tablet cephalexin 500 mg capsule 500 mg PO QID 7 days #28 caps 09/05/24 doxycycline hyclate 100 mg tablet 100 mg PO BID 7 days #14 tabs 09/05/24 ondansetron 4 mg disintegrating 4 mg PO Q8H PRN nausea and 03/23/25 tablet vomiting #20 tabs dicyclomine 20 mg tablet 20 mg PO BID PRN abdominal pain 03/25/25 #14 tabs ondansetron 4 mg disintegrating 4 mg PO DAILY PRN nausea and 03/25/25 tablet vomiting 5 days #10 tabs Allergies Allergy/AdvReac Type Severity Reaction Status Date / Time No Known Allergies Allergy Verified 03/25/25 09:53 Review of Systems 2 Review of Systems: Yes all other systems are reviewed and are negative [facility] Past Medical History Attestation statement: The following information was validated with the patient. Source: old records reviewed and nursing notes reviewed Medical History Hypertension Diabetes Anxiety Surgical History H/O hernia repair Social History Social History Unable to assess alcohol history related to: Unknown Alcohol intake: former Smoked in Last 30 Days: No Use of substances other than those prescribed or required for medical reasons: No Substance Use Type: Marijuana Advance Directives: No Advance Directives Information Provided: No Physical Exam 2 Vital Signs: Vital Signs: Last Vital Signs Temp 98.1 F 03/25/25 14:58 Pulse 79 03/25/25 14:58 Resp 18 03/25/25 14:58 BP 126/66 03/25/25 14:58 Pulse Ox 100 03/25/25 14:58 O2 Del Method Room Air 03/25/25 14:58 BMI result Body Mass Index 25.8 Hypertensive, vitals otherwise WNL. Afebrile. General: Well appearing, in no acute distress. Skin: Warm, dry, intact. No rashes or lesions. Head: Normocephalic, atraumatic. EENT: Hearing is intact b/l. Conjunctiva clear. Sclera is anicteric. PERRLA. EOM intact. Moist mucous membranes.? Neck: Supple without LAD Cardiac: Chest wall symmetric Lungs: Normal respiratory effort without accessory muscle use. CTA bilaterally Abdomen: soft, nondistended, mildly tender to palpation of periumbilical/ epigastric region without rebound/ guarding. active bs x4. Back: No midline spinous or paraspinal tenderness. No step off deformity. Ext: Upper and lower extremities atraumatic, without tenderness, deformity, swelling or erythema Neuro: AOx3. Normal speech. Ambulating with steady gait Course Course Course Narrative: 1144 -- CBC without leukocytosis. Normocytic anemia appears to be around patient's baseline when compared to priors. Triglycerides WNL at 98. Chemistry without acute electrolyte abnormality requiring intervention. BUN slightly elevated to 22, normal creatinine. Improved from priors. Random glucose 231. No anion gap. Liver function WNL. EKG showing normal sinus rhythm with a rate of 60 beats per minute, right bundle-branch block evident on prior EKGs. No acute ischemic changes. Urine without infection. Urine drug screen positive for marijuana, otherwise negative. ethanol wnl. Negative COVID, flu, RSV. > patient receiving IV fluids, Reglan, Benadryl, Zofran. Plan to re-evaluate, PO trial. Anticipate discharge home given unremarkable workup. likely related to cannabis use. no imaging warranted at this time. recent CT a/p 3 days ago unremarkable. 1330 -- Patient tolerating crackers and sandy bridgette. Ambulating with steady gait. Reports improvement in symptoms after receiving Bentyl and IV fluids. I still do not feel as though imaging is warranted at this time. Workup is benign. I feel comfortable discharging patient home with Bentyl and outpatient follow up. advised to d/c marijuana use. Patient has remained stable throughout ED visit today. Discussed worrisome signs and symptoms and when to return to the ED. All questions answered at this time. Patient is agreeable with disposition and stable for discharge. Medications Administered Discontinued Medications Generic Name Dose Route Start Last Admin Trade Name Freq PRN Reason Stop Dose Admin Dicyclomine HCl 10 mg 03/25/25 12:29 03/25/25 12:42 Dicyclomine Hcl 10 Mg Capsule PO 03/25/25 12:30 10 mg ONCE ONE Administration Diphenhydramine HCl 25 mg 03/25/25 10:06 03/25/25 10:17 Diphenhydramine Hcl 50 Mg/Ml Vial IVPUSH 03/25/25 10:07 25 mg ONCE ONE Administration Famotidine 20 mg 03/25/25 10:06 03/25/25 10:17 Famotidine/Pf 20 Mg/2 Ml Vial IVPUSH 03/25/25 10:07 20 mg ONCE ONE Administration Lactated Ringer's 1,000 mls @ 999 mls/hr 03/25/25 10:15 03/25/25 14:14 Lr IV 03/25/25 11:15 Infused .Q1H1M HERNAN Infusion Sodium Chloride 1,000 mls @ 999 mls/hr 03/25/25 11:45 03/25/25 14:16 Ns IV 03/25/25 12:45 999 mls/hr .Q1H1M HERNAN Administration Lisinopril 5 mg 03/25/25 12:30 03/25/25 12:42 Lisinopril 5 Mg Tablet PO 03/25/25 12:31 5 mg ONCE ONE Administration Protocol Metoclopramide HCl 10 mg 03/25/25 10:05 03/25/25 10:16 Metoclopramide Hcl 10 Mg/2 Ml Vial IVPUSH 03/25/25 10:06 10 mg ONCE ONE Administration Ondansetron HCl 4 mg 03/25/25 11:34 03/25/25 12:41 Ondansetron Hcl 4 Mg/2 Ml Vial IVPUSH 03/25/25 11:35 4 mg ONCE ONE Administration Medical Decision Making Medical Decision Making MDM Narrative: 54-year-old male with pmhx significant for hypertension, diabetes on Trulicity, Harrison's esophagus presents to the ED today via EMS from home for evaluation of nausea, vomiting, abdominal pain on waking this morning. Patient is hypertensive, vitals are otherwise WNL. Afebrile. He is nontoxic-appearing and in no acute distress. on exam, abdomen is soft, nondistended, mildly tender to palpation of periumbilical/ epigastric region without rebound/ guarding. active bs x4. Differential diagnosis includes gastroenteritis, gastritis, cannabinoid hyperemesis syndrome, viral syndrome, PUD. Lower suspicion for biliary colic, renal colic, nephrolithiasis. Abdominal exam without peritoneal signs. No evidence of acute abdomen at this time. Well appearing. Moderate suspicion for acute hepatobiliary disease (including acute cholecystitis). Less likely to represent acute pancreatitis, perforated ulcer/ GI bleed, acute infectious processes (pneumonia, hepatitis, pyelonephritis), atypical appendicitis, vascular catastrophe, bowel obstruction or viscus perforation. Presentation not consistent with other acute, emergent causes of abdominal pain at this time. Plan: labs, UA, pain control, serial reassessment Differential Diagnosis Differential Diagnoses: The differential diagnosis associated with the presentation includes as above Admission/Observation not indicated. Lab Data MDM Lab Attestation statement: I reviewed the patient's lab results. as above. 03/25/25 09:52 03/25/25 09:52 Labs: Lab Results 03/25/25 03/25/25 03/25/25 Range/Units 09:52 10:16 10:17 WBC 7.8 (4.8-10.8) X10*3/uL RBC 4.39 L (4.60-5.80) X10*6/uL Hgb 12.6 L (14.0-18.0) g/dl Hct 36.8 L (42.0-52.0) % MCV 83.8 (80.0-98.0) fL MCH 28.7 (27.0-33.0) pg MCHC 34.2 (31.0-36.0) g/dl RDW 12.9 (11.0-16.0) % Plt Count 267 (160-400) X10*3/uL MPV 9.5 (9.4-12.4) fL Immature Gran % (Auto) 0.5 H (0.0-0.4) % Neut % (Auto) 81.8 H (45-73) % Lymph % (Auto) 11.9 L (20-40) % [place] % (Auto) 4.5 (2-11) % Eos % (Auto) 0.9 (0-4) % Baso % (Auto) 0.4 (0-2) % Lymph # (Auto) 0.9 L (1.2-4.9) X10*3/uL [place] # (Auto) 0.4 (0.1-1.2) X10*3/uL Eos # (Auto) 0.1 (0.0-0.4) X10*3/uL Baso # (Auto) 0.0 (0.0-0.2) X10*3/uL Abs Immat Gran (auto) 0.04 H (0.00-0.03) X10*3/uL Absolute Neuts (auto) 6.4 (2.0-8.3) x10*3/uL Absolute Nucleated RBC 0.000 (0.0-0.012) X10*3/uL Nucleated RBC % (auto) 0.0 (0.0-0.2) /100WBC Sodium 139 (135-145) mmol/L Potassium 3.9 (3.3-5.1) mmol/L Chloride 105 (96-108) mmol/L Carbon Dioxide 23 (22-29) mmol/L Anion Gap 15 (12-20) BUN 22 H (9-16) mg/dL Creatinine 1.03 (0.5-1.4) mg/dL Estim Creat Clear Calc 84.6 Estimated GFR > 60 Random Glucose 231 H (60-115) mg/dL Calcium 9.4 D (8.4-10.2) mg/dL Magnesium 1.9 (1.6-2.6) mg/dL Total Bilirubin 0.4 (0.0-1.0) mg/dL AST 26 (5-37) U/L ALT 22 (0-40) U/L Alkaline Phosphatase 67 (39-117) U/L Total Protein 6.0 L (6.5-8.0) g/dL Albumin 4.1 (3.5-5.0) g/dL Triglycerides 98 (<150) mg/dL Lipase 19 (8-78) U/L Urine Color Yellow Urine Appearance Clear Urine pH 7.0 (5.0-9.0) Ur Specific [place] 1.025 (1.005-1.025) Urine Protein Trace (Neg-Trace) mg/dL Urine Glucose (UA) >=1000 H (Negative) mg/dL Urine Ketones Trace (Negative) mg/dL Urine Blood Trace H (Negative) Urine Nitrite Negative (Negative) Ur Leukocyte Esterase Negative (Negative) Urine RBC 3-5 H (0-2) /HPF Urine WBC 0-5 (0-5) /HPF Ur Squamous Epith Cells 0-2 (0-2) /HPF Urine Bacteria None Seen (None Seen) Hyaline Casts 0-2 (0-2) /LPF Urine Opiates Screen Not Detected (Not Detect) Ur Buprenorphine Scrn Not Detected (Not Detect) ng/mL Ur Oxycodone Screen Not Detected (Not Detect) ng/mL Urine Methadone Screen Not Detected (Not Detect) ng/mL Urine Fentanyl Screen Not Detected (Not Detect) Ur Barbiturates Screen Not Detected (Not Detect) Ur Phencyclidine Scrn Not Detected (Not Detect) Ur Amphetamines Screen Not Detected (Not Detect) U Benzodiazepines Scrn Not Detected (Not Detect) Urine Cocaine Screen Not Detected (Not Detect) U Marijuana (THC) Screen POSITIVE H (Not Detect) Ethyl Alcohol < 10 mg/dL Influenza Type A (PCR) NEGATIVE (Negative) Influenza Type B (PCR) NEGATIVE (Negative) RSV RNA Qual (PCR) NEGATIVE (Negative) SARS-CoV-2 RNA (RT-PCR) NEGATIVE (Negative) Independent Interpretation I performed an independent interpretation of an: EKG and CT Scan Interpretation: ekg showing NSR w/ RBBB, oo acute ischemic changes or st elevations CT a/p done on 03/23/25 w/o bowel obstruction Radiology Impression Discussion of test interpretation with radiology: I have reviewed the radiologist's reading. Radiologist Impression: Procedure(s): CT abdomen pelvis w IV con Accession Number(s): [id number] cc: Vicente Thomason III, MD; Honey Scales DO~ Report Number: [id number]: Total DLP = 552.00 mGy-cm CLINICAL HISTORY: n v upper abdominal pain lipase elevated CT abdomen and pelvis with contrast Comparison: CT - CT ABDOMEN PELVIS W IV CON - 03/22/25 23:41 EDT Findings: Minor atelectasis at both lung bases. Small left superior renal cyst. Hypodense liver. No lesions. Gallbladder and solid organs otherwise unremarkable. No bowel obstruction, pneumoperitoneum, or pneumatosis. Mesenteric vessels patent. Moderate colonic diverticulosis without diverticulitis. Normal appendix. Mild urinary bladder distention. The bones are intact. IMPRESSION: 1. No CT evidence of pancreatitis. CT findings can lag behind serologic findings. 2. Hepatic steatosis. 3. Additional nonacute findings as above. Independent Historian Clinical information obtained from an independent historian. History obtained from or confirmed by: EMS External Record Review External record reviewed: Inpatient record Prescription Management I considered prescription management with: Other (Bentyl) Chronic Conditions Patient?s care impacted by: Diabetes Social Determinants Patient?s care significantly limited by Social Determinants of Health including: Other Social Determinant of Health Critical Care Time Critical Care Time Critical Care Time: No Discharge Plan Discharge Clinical Impression: Nausea & vomiting Patient Disposition: Home, Self-Care Additional Instructions: You were evaluated in the ED today for nausea, vomiting abdominal discomfort. Your workup today is very reassuring. Your blood work is normal. You tested negative for COVID, flu, RSV. Your urine is negative for infection. Your symptoms improved after receiving medications today. I will be sending Bentyl to your pharmacy. You may take this as needed for abdominal bloating/discomfort. Zofran has been sent to your pharmacy for treatment of nausea/vomiting. Please discontinue your marijuana use. This can worsen your symptoms. Follow up with your GI specialist. If you do not have on, a referral has been provided. All them to establish care, they will not call you. Follow up with your PCP. Return with any new or worsening symptoms. In the case of an emergency call 911. Prescriptions: New dicyclomine 20 mg tablet 20 mg PO BID PRN (Reason: abdominal pain) Qty: 14 0RF ondansetron 4 mg tablet,disintegrating 4 mg PO DAILY PRN (Reason: nausea and vomiting) 5 Days Qty: 10 0RF No Action ondansetron 4 mg tablet,disintegrating 4 mg PO Q8H Qty: 14 0RF dicyclomine 20 mg tablet 20 mg PO BID Qty: 14 0RF cephalexin 500 mg capsule 500 mg PO QID 7 Days Qty: 28 0RF doxycycline hyclate 100 mg tablet 100 mg PO BID 7 Days Qty: 14 0RF metoclopramide HCl [Reglan] 10 mg tablet 10 mg PO Q6H PRN (Reason: nausea and vomiting) Qty: 30 0RF ondansetron 4 mg tablet,disintegrating 4 mg PO Q8H 3 Days Qty: 9 0RF ondansetron 4 mg tablet,disintegrating 4 mg PO Q8H PRN (Reason: nausea and vomiting) Qty: 20 0RF Referrals: [facility] [place] [facility] [Provider Group] Vicente Thomason III, MD [Primary Care Provider] - Interventions: ED Discharge Assessment Last Done: 03/25/25 14:58 Discharge Date/Time: 03/25/25 14:59 Print Language: [place]
[2025-03-25] MEDS: Metoclopramide HCl 10 MG/2 ML VIAL IVPUSH (10:16)
[2025-03-25] MEDS: Famotidine/PF 20 MG/2 ML VIAL IVPUSH (10:17)
[2025-03-25] MEDS: Lactated Ringers 1,000 ML 999 ML IV (10:17)
[2025-03-25] MEDS: diphenhydrAMINE HCL 50 MG/ML VIAL 25 MG IVPUSH (10:17)
[2025-03-25 10:25] LABS: MANUAL DIFF FLAG NO
[2025-03-25 10:25] LABS: Appearance Urine Clear; Color Urine Yellow; Glucose Urine UA >=1000 mg/dL (Negative); Leukocyte Esterase Urine Negative (Negative); Nitrite Urine Negative (Negative); Specific Gravity - Urine 1.025 (1.005-1.025); UMIC TRIGGER UACC YES; Urine Blood Trace (Negative); Urine Ketones Trace mg/dL (Negative); Urine Protein Trace mg/dL (Neg-Trace)
[2025-03-25 10:27] VITALS: BP 177/71; PULSE 67; RESP 17; TEMP 37; O2SAT 99
[2025-03-25 10:30] LABS: Bacteria Urine None Seen (None Seen); Hyaline Casts Urine 0-2 /LPF (0-2); Squamous Epithelial Cell Urine 0-2 /HPF (0-2); WBC Urine 0-5 /HPF (0-5)
[2025-03-25 10:30] LABS: Basophils Percent Auto 0.4 % (0-2); Eosinophils Absolute Auto 0.1 X10*3/uL (0.0-0.4); Eosinophils Percent Auto 0.9 % (0-4); Hematocrit 36.8 % (42.0-52.0); Hemoglobin 12.6 g/dl (14.0-18.0); Imm Gran Abs Auto 0.04 X10*3/uL (0.00-0.03); Imm Gran Pct Auto 0.5 % (0.0-0.4); Lymphocytes Absolute Auto 0.9 X10*3/uL (1.2-4.9); Lymphocytes Percent Auto 11.9 % (20-40); Mean Corpuscular HGB Conc 34.2 g/dl (31.0-36.0); Mean Corpuscular Hemoglobin 28.7 pg (27.0-33.0); Mean Corpuscular Volume 83.8 fL (80.0-98.0); Mean Platelet Volume 9.5 fL (9.4-12.4); Monocytes Absolute Auto 0.4 X10*3/uL (0.1-1.2); Monocytes Percent Auto 4.5 % (2-11); Neutrophils Absolute Auto 6.4 x10*3/uL (2.0-8.3); Neutrophils Percent Auto 81.8 % (45-73); Platelet Count 267 X10*3/uL (160-400); Red Blood Count 4.39 X10*6/uL (4.60-5.80); Red Cell Distribution Width 12.9 % (11.0-16.0); White Blood Count 7.8 X10*3/uL (4.8-10.8)
[2025-03-25 10:37] LABS: Amphetamine Screen Urine Not Detected (Not Detect); Barbiturates, Urine Not Detected (Not Detect); Benzodiazepines Screen Urine Not Detected (Not Detect); Buprenorphine Scr Not Detected (Not Detect); Cannabinoid Screen Urine POSITIVE (Not Detect); Cocaine Screen Urine Not Detected (Not Detect); Fentanyl, urine Not Detected (Not Detect); Methadone Screen, Urine Not Detected (Not Detect); Opiate Screen Urine Not Detected (Not Detect); Oxycodone Screen Urine Not Detected (Not Detect); Phencyclidine Screen Urine Not Detected (Not Detect)
[2025-03-25 10:41] LABS: Triglycerides 98 mg/dL (<150)
[2025-03-25 11:02] LABS: Influenza A PCR NEGATIVE (Negative); Influenza B PCR NEGATIVE (Negative); Resp Syncy Virus RNA Qual PCR NEGATIVE (Negative); SARS COV2 PCR INHOUSE NEGATIVE (Negative)
[2025-03-25 11:08] LABS: Alanine Aminotransferase 22 U/L (0-40); Albumin Level 4.1 g/dL (3.5-5.0); Alkaline Phosphatase 67 U/L (39-117); Anion Gap 15 (12-20); Aspartate Amino Transferase 26 U/L (5-37); Bilirubin Total 0.4 mg/dL (0.0-1.0); Blood Urea Nitrogen 22 mg/dL (9-16); Calcium 9.4 mg/dL (8.4-10.2); Carbon Dioxide 23 mmol/L (22-29); Chloride 105 mmol/L (96-108); Creatinine Clr Calc Pharmacy 84.6; Estimated Glomerular Filt Rate > 60; Ethanol < 10 mg/dL; Glucose Random 231 mg/dL (60-115); Lipase 19 U/L (8-78); Magnesium 1.9 mg/dL (1.6-2.6); Potassium 3.9 mmol/L (3.3-5.1); Sodium 139 mmol/L (135-145)
[2025-03-25 11:55] VITALS: BP 179/65; PULSE 75; RESP 16; TEMP 36.9; O2SAT 99
[2025-03-25] MEDS: ondansetron HCL 4 MG/2 ML VIAL IVPUSH (12:41)
[2025-03-25 12:42] VITALS: BP 177/63
[2025-03-25] MEDS: lisinopriL 5 MG TABLET PO (12:42)
[2025-03-25] MEDS: Dicyclomine HCl 10 MG CAPSULE PO (12:42)
[2025-03-25 13:57] VITALS: BP 126/66; PULSE 79; RESP 18; TEMP 36.7; O2SAT 100
[2025-03-25] MEDS: 0.9 % Sodium Chloride 1,000 ML 999 ML IV (14:16)
--- NOTE | 2025-03-25 14:16 | PC.NURSE ---
Pt reports + relief of sx's with tx
[2025-03-25 14:58] VITALS: BP 126/66; PULSE 79; RESP 18; TEMP 36.7; O2SAT 100
== END 2025-03-25 14:59 | disposition home or self-care (01) ==
PROVIDERS: Physician Assistant Medical; Emergency Provider Emergency Medicine; PCP Internal Medicine
DX: R11.2 Nausea with vomiting, unspecified (principal); I10 Essential (primary) hypertension; E11.9 Type 2 diabetes mellitus without complications; R10.2 Pelvic and perineal pain; I45.10 Unspecified right bundle-branch block; F12.90 Cannabis use, unspecified, uncomplicated; Z79.85 Long-term (current) use of injectable non-insulin antidiabetic drugs; Z03.818 Encounter for observation for suspected exposure to other biological agents ruled out; Z79.899 Other long term (current) drug therapy
CPT/HCPCS: 0241U; 36415; 80053; 80307; 81001; 83690; 83735; 84478; 85025; 93005; 96361; 96374; 96375; 99285; J1200; J1308; J2405; J2765; J7120

== ENCOUNTER → 2025-03-25 10:22 | Outpatient (BNV) | payer OTHER, SELFPAY | PROVIDERS: Emergency Provider Emergency Medicine; PCP Internal Medicine; Visit Provider Internal Medicine Cardiovascular Disease | DX: I45.10 Unspecified right bundle-branch block (principal) | CPT/HCPCS: 93010 ==

== ENCOUNTER 2025-06-05 18:26 | Inpatient (IN) | payer OTHER, SELFPAY ==
--- NOTE | ~2025-06-05 | CT_ITS ---
EXAMINATION: CT ABDOMEN AND PELVIS WITH CONTRAST CLINICAL INFORMATION: Abdominal pain. Nausea and vomiting. COMPARISON: March 22, 2025. TECHNIQUE: Multidetector volumetric images were obtained from the superior aspect of the liver through the pubic symphysis following administration 85 mL of Omnipaque 350 intravenous contrast. Sagittal and coronal reformatted images were obtained on the technologist's workstation. Oral contrast: No This CT examination was performed using dose optimization techniques as appropriate, variously including the following: *Automated exposure control *Adjustment of mA and/or kV according to patient size (this includes techniques or standardized protocols for targeted exams where dose is matched to indication/reason for exam; i.e. extremities or head) *Use of iterative reconstruction technique DLP: 417 mGy centimeter. FINDINGS: LUNG BASES: Linear attenuation abnormalities in the lung bases. 3 mm noncalcified subpleural nodules, bilaterally. LIVER, GALLBLADDER, AND BILIARY TREE: Liver measures 16 cm. Decreased enhancement pattern. No focal mass. Portal veins and hepatic veins are patent. Decreased enhancement pattern adjacent to the falciform ligament. No pericholecystic fluid collection or gallbladder wall thickening. No intrahepatic or extrahepatic biliary ductal dilatation. PANCREAS: No focal mass. No peripancreatic fluid collection. No main pancreatic ductal dilatation. Punctate calcification in the anterior inferior head of the pancreas. SPLEEN: 9 cm. Punctate calcifications in the parenchyma likely granulomata. ADRENAL GLANDS: No nodular lesions. KIDNEYS AND URETERS: No hydronephrosis. No gross nephrolithiasis. Normal enhancement pattern of the renal parenchyma. 1.2 cm exophytic cystic lesion in the posterior lateral upper pole left kidney. 0.8 cm cystic lesion corticomedullary junction of the right kidney. BLADDER: Fluid-filled nearly collapsed. GASTROINTESTINAL TRACT: Gas filled prominent rectosigmoid colon junction with questionable wall thickening in the distal rectum. No perirectal edema pattern. Numerous diverticula in the left hemicolon and transverse colon. Abundant stool. No intestinal obstruction pattern. The appendix is normal and just beneath the right hepatic lobe and gallbladder and posterior to the hepatic colonic flexure. No pneumatosis intestinalis. No pneumoperitoneum. No peripheral enhancing fluid collection peritoneal cavity. No ascites. ABDOMINAL WALL: Subcutaneous emphysema, right midline lower abdominal wall. Diastases abdominal rectus muscles in the periumbilical region. LYMPH NODES: No retroperitoneum or mesenteric lymphadenopathy. VASCULAR: Throughout the abdominal aorta wall the iliac arteries the mesenteric arteries the origin of the main renal arteries and the splenic artery. Calcified plaques in the coronary arteries. Mixed plaques in the descending thoracic aorta. 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 Mixed plaques throughout the femoral arteries. Calcifications in the vas deferens, bilaterally. No aneurysm or dissection, abdominal aorta.. PELVIC VISCERA: Not enlarged. OSSEOUS STRUCTURES: Multilevel thoracolumbar spondylosis pronounced at L5-S1. Grade 1 retrolisthesis, L5-S1. Sclerosis and the sacroiliac joints. Mild degenerative changes in both hips and greater trochanters of the femur. No acute fracture. No gross lytic or blastic lesions. CT/CT abdomen pelvis w IV con IMPRESSION: Diverticular disease, left hemicolon. Enterocolitis, mild cannot be excluded. Questionable focal soft tissue fullness at the rectosigmoid colon junction. Coronary artery disease and atherosclerosis disease. Cystic lesions, both kidneys. Fleischner guidelines were followed. Electronically signed by: Golden Wahl MD 06/06/2025 09:25 AM EDT
[2025-06-05 18:32] VITALS: BP 181/84; PULSE 86; RESP 16; TEMP 36.1; O2SAT 100; BMI 25.0
--- NOTE | 2025-06-05 18:36 | ECG_ITS ---
Test Reason : HESSS Blood Pressure : */* mmHG Vent. Rate : 78 BPM Atrial Rate : 78 BPM P-R Int : 128 ms QRS Dur : 140 ms QT Int : 430 ms P-R-T Axes : 65 58 54 degrees QTcB Int : 490 ms Normal sinus rhythm Right bundle branch block Abnormal ECG When compared with ECG of 25-Mar-2025 10:22, QT has lengthened Referred By: Ap Silverio Electronically Signed By: Porter Escobar
--- NOTE | 2025-06-05 18:37 | ED.GENADULT ---
HPI - General Adult General Chief complaint: Nausea/Vomiting/Diarrhea Stated complaint: Vomiting Time Seen by Provider: 06/05/25 19:54 History of Present Illness ED Provider: Willis Vital MD HPI narrative: 55-year-old male with history of diabetes presents with nausea vomiting nonbloody nonbilious and mild upper epigastric discomfort since earlier today. He had a protein shake and Pedialyte earlier today since then been vomiting. He is [id number] diabetic he takes metformin, Trulicity, Jardiance but has not taken any other diabetic meds today due to the nausea and vomiting. No recent fever or chills difficulty breathing chest pain skin changes headache or other symptoms Related Data Home Medications ?Medication ?Instructions ?Recorded ?Confirmed acetaminophen 300 mg-codeine 30 mg 2 tab PO DAILY PRN Pain 06/06/25 06/06/25 tablet atorvastatin 20 mg tablet 20 mg PO BEDTIME 06/06/25 06/06/25 dulaglutide 1.5 mg/0.5 mL 1.5 mg subcut SA 06/06/25 06/06/25 subcutaneous [facility] fenofibrate nanocrystallized 145 145 mg PO DAILY 06/06/25 06/06/25 mg tablet fluticasone propionate 50 1 spray intranasal BID 06/06/25 06/06/25 mcg/actuation nasal spray,suspension hydroxyzine HCl 25 mg tablet 25 mg PO TID PRN anxiety 06/06/25 06/06/25 lisinopril 5 mg tablet 5 mg PO DAILY 06/06/25 06/06/25 metformin 500 mg tablet,extended 1,000 mg PO BEDTIME 06/06/25 06/06/25 release 24 hr metformin 500 mg tablet,extended 500 mg PO DAILY 06/06/25 06/06/25 release 24 hr ondansetron 4 mg disintegrating 4 mg PO Q8H PRN nausea/vomiting 06/06/25 06/06/25 tablet paroxetine HCl 40 mg tablet 60 mg PO DAILY 06/06/25 06/06/25 Previous Rx's ?Medication ?Instructions ?Recorded insulin glargine 100 unit/mL (3 15 unit (0.15 mL) subcut DAILY 90 06/07/25 mL) subcutaneous pen (Lantus days #15 mL Solostar U-100 Insulin) insulin lispro 100 unit/mL 1 sliding scale dose subcut 06/07/25 subcutaneous pen (Humalog KwikPen MARCODACHS #15 mL (U-100) Insulin) omeprazole 20 mg capsule,delayed 20 mg PO DAILY 28 days #28 caps 06/07/25 release pen needle, diabetic 32 gauge x #100 ea 06/07/25 1/ Allergies Allergy/AdvReac Type Severity Reaction Status Date / Time No Known Allergies Allergy Verified 06/05/25 18:34 [facility] Past Medical History Medical History (Updated 06/07/25 @ 09:43 by Al Ambriz MD) Diabetes Marijuana use Dysphagia Alcohol abuse Harrison esophagus Hypertension Anxiety Surgical History H/O hernia repair Social History Social History Household Members: Significant Other Housing: House Do you presently have visiting nurse or other home services: No Unable to assess alcohol history related to: Unknown Alcohol intake: former Patient Tobacco Use Status: Current everyday Tobacco user Cigarettes Per Day: 4 Substance Use Type: Marijuana service: No Physical Exam ED Exam Exam: EXAM: Gen: Alert, awake, well appearing, well hydrated. Head: Atraumatic Eyes: Anicteric, Normal conjunctiva. ENT: Moist mucosa, no pallor. ? Neck: Supple. Skin: ?No observable rash or bruising on exposed or examined skin Respiratory: Breathing comfortably, No distress.Clear to auscultation bilaterally, symmetric chest expansion, No wheeze, rales, ronchi. Cardiovascular: Regular rate and rhythm. No murmurs or rub. Well perfused periphery, warm extremities. No edema. ? Abdominal: No focal tenderness. Soft, no objective distension. No palpable masses or obvious organomegaly. ?No guarding, no rebound tenderness or other peritoneal findings. : No flank tenderness. Neuro: Alert. Gross movement of all extremities intact. ? Psych: Calm. Cooperative. MSK: No grossly visible deformity. Vital signs: See flowsheet Vital Signs: Vital Signs - 24 hr 06/05/25 18:32 06/05/25 18:52 06/05/25 19:14 Temperature 97.0 F 97.6 F Pulse Rate 86 92 80 Respiratory Rate 16 20 31 H Blood Pressure 181/84 H 185/69 H 175/73 H Pulse Oximetry 100 100 100 Oxygen Delivery Method Room Air Room Air Room Air 06/05/25 21:18 Temperature 98.0 F Pulse Rate 78 Respiratory Rate 20 Blood Pressure 173/77 H Pulse Oximetry 98 Oxygen Delivery Method Room Air BMI result Body Mass Index 25.0 Course Course Course Narrative: RME: 55-year-old male presents to the ED for for vomiting and dizziness. Patient was under the sun doing work in the [place] with a friend 0/started vomiting felt lightheaded. Patient denies any chest pain or shortness of breath. NIH score is 0. Patient is hypotensive. Lab EKG POC glucose ordered Reevaluation(s) Reevaluation #1: 23:48 patient still has some element of acidosis. There was no acidemia based on PH venous blood gas. Ketosis continues despite 10 units insulin/30 cc per kg crystalloid. Plan for admission for continued insulin and fluid. Presumed diagnosis diabetic ketosis without acidosis versus Jardiance induced euglycemic ketosis Willis Vital MD Medications Administered Discontinued Medications Generic Name Dose Route Start Last Admin Trade Name Freq PRN Reason Stop Dose Admin Atorvastatin Calcium 20 mg 06/06/25 21:00 06/06/25 21:23 Atorvastatin Calcium 20 Mg Tablet PO 20 mg BEDTIME HERNAN Administration Enoxaparin Sodium 40 mg 06/06/25 00:00 06/07/25 00:45 Enoxaparin Sodium 40 Mg/0.4 Ml Syringe SUBCUT 40 mg Q24H HERNAN Administration Fenofibrate 134 mg 06/07/25 09:00 06/07/25 08:43 Fenofibrate,Micronized 134 Mg Capsule PO 134 mg DAILY HERNAN Administration Fluticasone Propionate 1 spray 06/06/25 21:00 06/07/25 09:56 Fluticasone Propionate Nasal 16 Gm [place] NOSTRIL-B Not Given BID HERNAN Lactated Ringer's 2,367 mls @ 2,367 mls/hr 06/05/25 19:58 06/05/25 22:04 Lr 30 ml/kg infuse over 1 hr (2367 ml) 06/05/25 20:57 Infused IV Infusion .Q1H ONE Lactated Ringer's 1,000 mls @ 200 mls/hr 06/05/25 23:45 06/07/25 10:45 Lr IVCONT Not Given .Q5H HERNAN Magnesium Sulfate 2 gm in 50 mls @ 25 mls/hr 06/06/25 01:21 06/06/25 03:57 Magnesium Sulfate/H2o IV 06/06/25 03:20 Infused ONCE ONE Infusion Insulin Glargine 8 unit 06/06/25 00:51 06/06/25 01:57 Insulin Glargine,Hum.Rec.Anlog 100 Unit/Ml 10 Ml Vial SUBCUT 06/06/25 00:52 8 unit ONCE ONE Administration Insulin Glargine 15 unit 06/06/25 21:00 06/06/25 21:23 Insulin Glargine,Hum.Rec.Anlog 100 Unit/Ml 10 Ml Vial SUBCUT 15 unit BEDTIME [facility] Administration Insulin Human Lispro 0 unit 06/06/25 06:00 06/07/25 07:28 Insulin Lispro 100 Unit/Ml 3 Ml Vial SUBCUT Not Given Q6H [facility] Protocol Insulin Human Lispro 0 unit 06/07/25 07:30 06/07/25 11:21 Insulin Lispro 100 Unit/Ml 3 Ml Vial SUBCUT Not Given QIDACHS [facility] Protocol Insulin Human Regular 10 unit 06/05/25 19:58 06/05/25 20:22 Insulin Regular, Human 100 Unit/Ml 10 Ml Vial IVPUSH 06/05/25 19:59 10 unit ONCE ONE Administration Iohexol 100 ml 06/06/25 08:57 06/06/25 08:58 Iohexol 350 Mg/Ml 100 Ml Infus..Btl IV 06/06/25 08:58 85 ml ONCE ONE Administration Lisinopril 5 mg 06/07/25 09:00 06/07/25 08:43 Lisinopril 5 Mg Tablet PO 5 mg DAILY [facility] Administration Protocol Magnesium Hydroxide 30 ml 06/05/25 23:54 06/06/25 00:23 Milk Of Magnesia 30 Ml Oral.Susp PO 30 ml DAILY PRN Administration Constipation Metformin HCl 500 mg 06/07/25 09:15 06/07/25 09:55 Metformin Hcl Er 500 Mg Tab.Er.24h PO 500 mg DAILY HERNAN Administration Ondansetron HCl 4 mg 06/05/25 20:59 06/05/25 21:10 Ondansetron Hcl 4 Mg/2 Ml Vial IVPUSH 06/05/25 21:00 4 mg ONCE ONE Administration Ondansetron HCl 4 mg 06/05/25 23:54 06/06/25 00:24 Ondansetron Hcl 4 Mg/2 Ml Vial IVPUSH 4 mg Q8H PRN Administration Nausea and Vomiting Pantoprazole Sodium 40 mg 06/06/25 00:45 06/07/25 06:17 Pantoprazole Sodium 40 Mg/10 Ml Vial IVPUSH 40 mg BID@0630,1630 HERNAN Administration Paroxetine HCl 60 mg 06/07/25 09:00 06/07/25 08:43 Paroxetine Hcl 30 Mg Tablet PO 60 mg DAILY HERNAN Administration Sodium Chloride 3 ml 06/06/25 00:00 06/07/25 08:44 0.9 % Sodium Chloride Flush 3 Ml Syringe IVFLUSH Not Given QSHIFT [facility] Medical Decision Making Medical Decision Making MDM Narrative: Medical Decision Makin-year-old male with hyperglycemia and severe acidemia on initial blood chemistry. Initial suspicion for severe diabetic ketoacidosis given the vomiting general dehydrated appearance and blood chemistry We added on venous blood gas and beta hydroxy butyrate and started aggressive crystalloid hydration. No fever, or clinical exam or history suggestion of focal bacterial infection. Leukocytosis is nonspecific. Preliminary Favored Differential Diagnosis: Hyperglycemic DKA, euglycemic DKA secondary to Jardiance , severe dehydration, electrolyte derangement, PUD gastritis gastroparesis pancreatitis among additional considered etiologies Testing Interpreted Independently: ECG: Sinus rhythm rate 78 QTC 490 right bundle-branch block. Similar morphology no dynamic changes compared to March 2025 ECG in our system. Radiology or Lab testing Results Reviewed: Severe acidemia on initial blood chemistry with bicarb below 15, moderate hyperglycemia, anion gap 27. Leukocytosis nonspecific though neutrophil predominant. Consults: Not Applicable Independent Historians/External Chart Reviews: Not Applicable Social Determinants of Health Impacting MDM/Planning: Not Applicable Lab Data 06/07/25 05:26 06/07/25 05:26 Labs: Lab Results 06/05/25 06/05/25 06/05/25 Range/Units 18:50 20:08 20:16 WBC 16.0 H (4.8-10.8) X10*3/uL RBC 5.03 (4.60-5.80) X10*6/uL Hgb 14.5 (14.0-18.0) g/dl Hct 40.9 L (42.0-52.0) % MCV 81.3 (80.0-98.0) fL MCH 28.8 (27.0-33.0) pg MCHC 35.5 (31.0-36.0) g/dl RDW 13.7 (11.0-16.0) % Plt Count 356 D (160-400) X10*3/uL MPV 9.5 (9.4-12.4) fL Immature Gran % (Auto) 0.5 H (0.0-0.4) % Neut % (Auto) 91.3 H (45-73) % Lymph % (Auto) 5.8 L (20-40) % Prentiss % (Auto) 2.2 (2-11) % Eos % (Auto) 0.0 (0-4) % Baso % (Auto) 0.2 (0-2) % Lymph # (Auto) 0.9 L (1.2-4.9) X10*3/uL Prentiss # (Auto) 0.4 (0.1-1.2) X10*3/uL Eos # (Auto) 0.0 (0.0-0.4) X10*3/uL Baso # (Auto) 0.0 (0.0-0.2) X10*3/uL Abs Immat Gran (auto) 0.08 H (0.00-0.03) X10*3/uL Absolute Neuts (auto) 14.6 H (2.0-8.3) x10*3/uL Absolute Nucleated RBC 0.000 (0.0-0.012) X10*3/uL Nucleated RBC % (auto) 0.0 (0.0-0.2) /100WBC Smear Tech's Comments VERIFIED PT 12.0 (10.9-12.4) SEC INR 1.0 (0.9-1.1) APTT 27.2 (26.0-36.8) SEC VBG pH 7.37 (7.32-7.43) VBG pCO2 17 mmHg VBG pO2 68 mmHg VBG HCO3 10 L (22-26) mmol/L VBG O2 Saturation 92.0 % VBG Base Excess -12.1 mmol/L Sodium 145 (135-145) mmol/L Potassium 4.2 (3.3-5.1) mmol/L Chloride 110 H (96-108) mmol/L Carbon Dioxide 12 L (22-29) mmol/L Anion Gap 27 H (12-20) BUN 25 H (9-16) mg/dL Creatinine 1.17 (0.5-1.4) mg/dL Estim Creat Clear Calc 73.6 Estimated GFR > 60 POC Glucose (60-115) mg/dL Random Glucose 273 H (60-115) mg/dL Calcium 10.9 H D (8.4-10.2) mg/dL Magnesium (1.6-2.6) mg/dL Total Bilirubin 0.6 (0.0-1.0) mg/dL AST 27 (5-37) U/L ALT 18 (0-40) U/L Alkaline Phosphatase 65 (39-117) U/L Total Creatine Kinase 411 H (38-174) U/L Troponin I High Sens 3.9 (<3.5-35.0) ng/L B-Natriuretic Peptide 19 (<100) pg/mL Total Protein 7.7 (6.5-8.0) g/dL Albumin 5.5 H (3.5-5.0) g/dL Lipase (8-78) U/L Beta-Hydroxybutyrate 8.90 H (0.02-0.27) mmol/L 06/05/25 06/05/25 06/05/25 Range/Units 20:43 21:03 21:23 WBC (4.8-10.8) X10*3/uL RBC (4.60-5.80) X10*6/uL Hgb (14.0-18.0) g/dl Hct (42.0-52.0) % MCV (80.0-98.0) fL MCH (27.0-33.0) pg MCHC (31.0-36.0) g/dl RDW (11.0-16.0) % Plt Count (160-400) X10*3/uL MPV (9.4-12.4) fL Immature Gran % (Auto) (0.0-0.4) % Neut % (Auto) (45-73) % Lymph % (Auto) (20-40) % Prentiss % (Auto) (2-11) % Eos % (Auto) (0-4) % Baso % (Auto) (0-2) % Lymph # (Auto) (1.2-4.9) X10*3/uL Prentiss # (Auto) (0.1-1.2) X10*3/uL Eos # (Auto) (0.0-0.4) X10*3/uL Baso # (Auto) (0.0-0.2) X10*3/uL Abs Immat Gran (auto) (0.00-0.03) X10*3/uL Absolute Neuts (auto) (2.0-8.3) x10*3/uL Absolute Nucleated RBC (0.0-0.012) X10*3/uL Nucleated RBC % (auto) (0.0-0.2) /100WBC Smear Tech's Comments PT (10.9-12.4) SEC INR (0.9-1.1) APTT (26.0-36.8) SEC VBG pH (7.32-7.43) VBG pCO2 mmHg VBG pO2 mmHg VBG HCO3 (22-26) mmol/L VBG O2 Saturation % VBG Base Excess mmol/L Sodium (135-145) mmol/L Potassium (3.3-5.1) mmol/L Chloride (96-108) mmol/L Carbon Dioxide (22-29) mmol/L Anion Gap (12-20) BUN (9-16) mg/dL Creatinine (0.5-1.4) mg/dL Estim Creat Clear Calc Estimated GFR POC Glucose 205 H 180 H 159 H (60-115) mg/dL Random Glucose (60-115) mg/dL Calcium (8.4-10.2) mg/dL Magnesium (1.6-2.6) mg/dL Total Bilirubin (0.0-1.0) mg/dL AST (5-37) U/L ALT (0-40) U/L Alkaline Phosphatase (39-117) U/L Total Creatine Kinase (38-174) U/L Troponin I High Sens (<3.5-35.0) ng/L B-Natriuretic Peptide (<100) pg/mL Total Protein (6.5-8.0) g/dL Albumin (3.5-5.0) g/dL Lipase (8-78) U/L Beta-Hydroxybutyrate (0.02-0.27) mmol/L 06/05/25 06/05/25 Range/Units 21:43 22:41 WBC (4.8-10.8) X10*3/uL RBC (4.60-5.80) X10*6/uL Hgb (14.0-18.0) g/dl Hct (42.0-52.0) % MCV (80.0-98.0) fL MCH (27.0-33.0) pg MCHC (31.0-36.0) g/dl RDW (11.0-16.0) % Plt Count (160-400) X10*3/uL MPV (9.4-12.4) fL Immature Gran % (Auto) (0.0-0.4) % Neut % (Auto) (45-73) % Lymph % (Auto) (20-40) % Prentiss % (Auto) (2-11) % Eos % (Auto) (0-4) % Baso % (Auto) (0-2) % Lymph # (Auto) (1.2-4.9) X10*3/uL Prentiss # (Auto) (0.1-1.2) X10*3/uL Eos # (Auto) (0.0-0.4) X10*3/uL Baso # (Auto) (0.0-0.2) X10*3/uL Abs Immat Gran (auto) (0.00-0.03) X10*3/uL Absolute Neuts (auto) (2.0-8.3) x10*3/uL Absolute Nucleated RBC (0.0-0.012) X10*3/uL Nucleated RBC % (auto) (0.0-0.2) /100WBC Smear Tech's Comments PT (10.9-12.4) SEC INR (0.9-1.1) APTT (26.0-36.8) SEC VBG pH (7.32-7.43) VBG pCO2 mmHg VBG pO2 mmHg VBG HCO3 (22-26) mmol/L VBG O2 Saturation % VBG Base Excess mmol/L Sodium 145 (135-145) mmol/L Potassium 3.9 (3.3-5.1) mmol/L Chloride 110 H (96-108) mmol/L Carbon Dioxide 17 L (22-29) mmol/L Anion Gap 22 H (12-20) BUN 23 H (9-16) mg/dL Creatinine 0.94 (0.5-1.4) mg/dL Estim Creat Clear Calc 91.6 Estimated GFR > 60 POC Glucose 146 H (60-115) mg/dL Random Glucose 157 H (60-115) mg/dL Calcium 9.3 D (8.4-10.2) mg/dL Magnesium 1.8 (1.6-2.6) mg/dL Total Bilirubin 0.4 (0.0-1.0) mg/dL AST 25 (5-37) U/L ALT 14 (0-40) U/L Alkaline Phosphatase 57 (39-117) U/L Total Creatine Kinase (38-174) U/L Troponin I High Sens (<3.5-35.0) ng/L B-Natriuretic Peptide (<100) pg/mL Total Protein 6.8 (6.5-8.0) g/dL Albumin 4.7 (3.5-5.0) g/dL Lipase 70 (8-78) U/L Beta-Hydroxybutyrate (0.02-0.27) mmol/L Independent Interpretation I performed an independent interpretation of an: EKG Independent Historian Clinical information obtained from an independent historian. History obtained from or confirmed by: Spouse Chronic Conditions Patient?s care impacted by: Diabetes Critical Care Time Critical Care Time Critical Care Time: Yes Total Critical Care Time: 30 Attestation: ED Critical Care: Authorized and Performed by: Willis Vital MD Total critical care time: Approximately 30 Due to a high probability of clinically significant, life threatening deterioration, the patient required my highest level of preparedness to intervene emergently and I personally spent this critical care time directly and personally managing the patient. This critical care time included obtaining a history; examining the patient; pulse oximetry; ordering and review of studies; arranging urgent treatment with development of a management plan; evaluation of patient's response to treatment; frequent reassessment; and, discussions with other providers. This critical care time was performed to assess and manage the high probability of imminent, life-threatening deterioration that could result in multi-organ failure. It was exclusive of separately billable procedures and treating other patients and teaching time. Discharge Plan Discharge Clinical Impression: Diabetic ketosis Patient Disposition: Admitted As Inpatient Interventions: Admission Worksheet (ED) Last Done: 06/06/25 02:15 Discharge Date/Time: 06/06/25 03:39
[2025-06-05 18:52] VITALS: BP 185/69; PULSE 92; RESP 20; O2SAT 100
[2025-06-05 18:57] LABS: Hematocrit 40.9 % (42.0-52.0); Hemoglobin 14.5 g/dl (14.0-18.0); Imm Gran Abs Auto 0.08 X10*3/uL (0.00-0.03); Imm Gran Pct Auto 0.5 % (0.0-0.4); Lymphocytes Absolute Auto 0.9 X10*3/uL (1.2-4.9); MANUAL DIFF FLAG SCAN; Mean Corpuscular HGB Conc 35.5 g/dl (31.0-36.0); Mean Corpuscular Hemoglobin 28.8 pg (27.0-33.0); Mean Corpuscular Volume 81.3 fL (80.0-98.0); NRBC Abs Auto 0.000 X10*3/uL (0.0-0.012); NRBC Pct Auto 0.0 /100WBC (0.0-0.2); Platelet Count 356 X10*3/uL (160-400); Red Blood Count 5.03 X10*6/uL (4.60-5.80); SCAN SMEAR FLAG 1; White Blood Count 16.0 X10*3/uL (4.8-10.8)
[2025-06-05 19:02] LABS: INTERNATIONAL NORM RATIO 1.0 (0.9-1.1); Prothrombin Time 12.0 SEC (10.9-12.4)
[2025-06-05 19:05] LABS: Partial Thromboplastin Time 27.2 SEC (26.0-36.8)
[2025-06-05 19:14] VITALS: BP 175/73; PULSE 80; RESP 31; TEMP 36.4; O2SAT 100
[2025-06-05 19:16] LABS: B Type Natriuretic Peptide 19 pg/mL (<100)
[2025-06-05 19:17] LABS: Troponin-I High Sensitivity 3.9 ng/L (<3.5-35.0)
[2025-06-05 19:18] LABS: Alanine Aminotransferase 18 U/L (0-40); Albumin Level 5.5 g/dL (3.5-5.0); Alkaline Phosphatase 65 U/L (39-117); Anion Gap 27 (12-20); Aspartate Amino Transferase 27 U/L (5-37); Blood Urea Nitrogen 25 mg/dL (9-16); Calcium 10.9 mg/dL (8.4-10.2); Carbon Dioxide 12 mmol/L (22-29); Chloride 110 mmol/L (96-108); Creatinine Clr Calc Pharmacy 73.6; Estimated Glomerular Filt Rate > 60; Potassium 4.2 mmol/L (3.3-5.1); Sodium 145 mmol/L (135-145); Total Protein 7.7 g/dL (6.5-8.0)
[2025-06-05 20:19] LABS: Venous Blood Gas Refer to POC result
[2025-06-05 20:20] LABS: VBG HCO3 10 mmol/L (22-26); VBG O2 % Saturation 92.0 %
[2025-06-05] MEDS: LACTATED RINGERS 2367 ML IV (20:20)
[2025-06-05 20:54] LABS: Glucose, Whole Blood 205 mg/dL (60-115)
[2025-06-05 21:07] LABS: Glucose, Whole Blood 180 mg/dL (60-115)
[2025-06-05 21:18] VITALS: BP 173/77; PULSE 78; RESP 20; TEMP 36.7; O2SAT 98
[2025-06-05 21:29] LABS: Glucose, Whole Blood 159 mg/dL (60-115)
[2025-06-05 21:48] LABS: Glucose, Whole Blood 146 mg/dL (60-115)
[2025-06-05 23:04] LABS: Alanine Aminotransferase 14 U/L (0-40); Albumin Level 4.7 g/dL (3.5-5.0); Alkaline Phosphatase 57 U/L (39-117); Anion Gap 22 (12-20); Aspartate Amino Transferase 25 U/L (5-37); Blood Urea Nitrogen 23 mg/dL (9-16); Calcium 9.3 mg/dL (8.4-10.2); Carbon Dioxide 17 mmol/L (22-29); Chloride 110 mmol/L (96-108); Creatinine Clr Calc Pharmacy 91.6; Estimated Glomerular Filt Rate > 60; Potassium 3.9 mmol/L (3.3-5.1); Sodium 145 mmol/L (135-145); Total Protein 6.8 g/dL (6.5-8.0)
--- NOTE | 2025-06-06 00:03 | P.HPHOSP_ITS ---
History of Present Illness Date of Service: 06/06/25 Attending physician on admission: Steven Yu Chief Complaint: nausea vomiting Pt is a 55 yo male with PMH NIDDM, marijuana use 2 blunts per day, HTN, alcohol abuse currently sober for the last 7 years, recent multiple ED visits for persistent nausea/vomiting, diverticulosis, Barretts esophagus, remote history in high school of using illicit drugs but patient denies history of IV drug abuse presents to the emergency room with new onset reoccurring nausea and vomiting that started last evening but got worse during the day along with shortness of breath and dizziness. Patient had worked outside during the day in the heat and was not drinking water. In addition patient reports that he is having polyuria, polydipsia and is extremely hungry at this time. Patient does have a glucometer at home but rarely checks his blood sugar on a regular basis. Patient is not currently on insulin for diabetes management. Patient states the last time he ate was last evening when he had 2 hamburgers. Patient did have associated diarrhea especially with the nausea and vomiting earlier today. Diarrhea has since resolved. Patient's last normal BM was 2 days prior. This is the first admission for pt noting multiple ED visits over the last 3 months for same issues. Patient takes metformin and Jardiance along with Trulicity for his diabetes management at home. Patient does follow with an zookeeper in the outpatient setting. It has been sometime since he has seen his zookeeper. Patient is on Trulicity 1.5 mg weekly. Patient has been on this medication for a long period of time without issues related to bowel obstruction or gastroparesis. Patient has been considering stopping the Trulicity due to these ongoing issues with nausea and vomiting and frequent ED visits. Pt instructed to discuss with PCP/zookeeper in the outpatient setting regarding this plan unless deemed contraindicated this admission. Patient is also on Jardiance which can induce euvolemic DKA in a type 2 diabetic. This admission, labs indicate a ketotic state, with an anion gap of 22, a CO2 of 17 and a beta hydroxybutyrate level of 8.9. Max blood sugar 273 since arrival. Patient received 1 dose of 10 units of regular insulin in the emergency department. Blood glucose levels are now trending approximately 150 mg/dL. Patient has received lactated Ringer's and will continue on an hourly rate. UA with reflex pending. Patient remains NPO. Patient denies history of pancreatitis and lipase is currently 70. Patient does have history of Harrison's esophagus in his experiencing extreme GERD during examination for admission. Patient denies any hematemesis or hemoptysis. Patient was supposed to be taking omeprazole but stopped that medication some time ago. Patient also smokes marijuana daily, approximately 2 blunts per day. Patient denies history of hyper emesis cyclical syndrome related to marijuana use. Patient has not had any marijuana in over 24 hours. Patient does have a leukocytosis but denies any fever or chills. Patient is not hypoxic. No indication for chest x-ray at this time. UA with reflex is pending. No open skin wounds or obvious evidence of infection. Review of Systems 2 Review of Systems: Pt reporting extreme esopahgeal burning, continued nausea with vomiting but denies chest pain, abd pain, SOB at rest or with exertion. Pt did have episode of diarrhea which has since resolved. Pt reports last normal BM was 2 days ago. Pt last used marijuana over 24 hours ago. Yes all other systems are reviewed and are negative [facility] Medical History Dysphagia Alcohol abuse Harrison esophagus Hypertension Diabetes Anxiety Cognitive capacity: Alert and orientated x3 Functional capacity: independent ambulation Surgical History H/O hernia repair Social History Unable to assess alcohol history related to: Unknown Alcohol intake: former Smoked in Last 30 Days: Yes Substance Use Type: Marijuana Advance Directives: No Advance Directives Information Provided: No Do you have a plan to hurt others: No Plan Ebola Risk: Travel/Contact With Anyone From Affected Area/s: No Has Patient Experienced Ebola Symptoms: No Meds Allergies Allergy/AdvReac Type Severity Reaction Status Date / Time No Known Allergies Allergy Verified 06/05/25 18:34 Active Medications: Current Medications Acetaminophen (Acetaminophen 325 Mg Tablet) 650 mg PO Q6H PRN PRN Reason: Pain, Mild 1-3,fever,headache Albuterol/Ipratropium (Albuterol/Iprat 2.5/0.5mg 3 Ml Ampul.Neb) 3 ml INHALE Q4H PRN PRN Reason: Shortness of Breath/Wheezing Calcium Carbonate (Calcium Carbonate 750 Mg Tab.Chew) 750 mg PO Q4H PRN PRN Reason: Heartburn Enoxaparin Sodium (Enoxaparin Sodium 40 Mg/0.4 Ml Syringe) 40 mg SUBCUT Q24H [facility] Lactated Ringer's (Lr) 1,000 mls @ 100 mls/hr IVCONT .Q10H [facility] Magnesium Hydroxide (Milk Of Magnesia 30 Ml Oral.Susp) 30 ml PO DAILY PRN PRN Reason: Constipation Melatonin (Melatonin 3 Mg Tablet) 6 mg PO BEDTIME PRN PRN Reason: Insomnia Ondansetron HCl (Ondansetron Hcl 4 Mg/2 Ml Vial) 4 mg IVPUSH Q8H PRN PRN Reason: Nausea and Vomiting Sodium Chloride (0.9 % Sodium Chloride Flush 3 Ml Syringe) 3 ml IVFLUSH QSHIFT [facility] Physical Exam 2 Vital Signs and Narrative: Vital Signs: Last Vital Signs Temp 98.0 F 06/05/25 21:18 Pulse 78 06/05/25 21:18 Resp 20 06/05/25 21:18 BP 173/77 H 06/05/25 21:18 Pulse Ox 98 06/05/25 21:18 O2 Del Method Room Air 06/05/25 21:18 BMI result Body Mass Index 25.0 Alert and orientated X3, able to give good history. Experiencing intermittent bouts of reflux with nausea and vomiting. Neuro: CN II-X11 intact, no deficits, visual acuity intact EYES: PERRLA, EOM intact, sclerae nonicteric, masses on ENT: hearing intact, no issues with swallowing, uvula midline, lips moist, nares patent no epistaxis Cardiac: S1 S2 RRR, no murmur, no JVD, no edema in Lower ext Pulmonary: lungs diminished bilaterally Abdominal: BS active in all 4 quadrants, no obvious tenderness, guarding, abdomen is distended but soft. MSK: strength 5/5 upper and lower extremities : no CVA tenderness no bladder distension Extremities: no edema in lower extremities, PT and DP pulses palpable +2 Psych: mood anxious, judgement and insight good Skin: Intact Results Labs 06/05/25 18:50 06/05/25 22:41 Labs: Laboratory Results - last 24 hr 06/05/25 06/05/2525 18:50 20:08 20:16 MCV 81.3 MCH 28.8 MCHC 35.5 RDW 13.7 Plt Count 356 D MPV 9.5 Immature Gran % (Auto) 0.5 H Neut % (Auto) 91.3 H Lymph % (Auto) 5.8 L [place] % (Auto) 2.2 Eos % (Auto) 0.0 Baso % (Auto) 0.2 Lymph # (Auto) 0.9 L [place] # (Auto) 0.4 Eos # (Auto) 0.0 Baso # (Auto) 0.0 Abs Immat Gran (auto) 0.08 H Absolute Neuts (auto) 14.6 H Absolute Nucleated RBC 0.000 Nucleated RBC % (auto) 0.0 Smear Tech's Comments VERIFIED PT 12.0 INR 1.0 APTT 27.2 VBG pH 7.37 VBG pCO2 17 VBG pO2 68 VBG HCO3 10 L VBG O2 Saturation 92.0 VBG Base Excess -12.1 Anion Gap 27 H Estim Creat Clear Calc 73.6 Estimated GFR > 60 POC Glucose Random Glucose 273 H Calcium 10.9 H D Total Bilirubin 0.6 AST 27 ALT 18 Alkaline Phosphatase 65 Total Creatine Kinase 411 H B-Natriuretic Peptide 19 Total Protein 7.7 Albumin 5.5 H Beta-Hydroxybutyrate 8.90 H 06/05/25 06/05/25 06/05/25 20:43 21:03 21:23 MCV MCH MCHC RDW Plt Count MPV Immature Gran % (Auto) Neut % (Auto) Lymph % (Auto) [place] % (Auto) Eos % (Auto) Baso % (Auto) Lymph # (Auto) [place] # (Auto) Eos # (Auto) Baso # (Auto) Abs Immat Gran (auto) Absolute Neuts (auto) Absolute Nucleated RBC Nucleated RBC % (auto) Smear Tech's Comments PT INR APTT VBG pH VBG pCO2 VBG pO2 VBG HCO3 VBG O2 Saturation VBG Base Excess Anion Gap Estim Creat Clear Calc Estimated GFR POC Glucose 205 H 180 H 159 H Random Glucose Calcium Total Bilirubin AST ALT Alkaline Phosphatase Total Creatine Kinase B-Natriuretic Peptide Total Protein Albumin Beta-Hydroxybutyrate 06/05/25 06/05/25 21:43 22:41 MCV MCH MCHC RDW Plt Count MPV Immature Gran % (Auto) Neut % (Auto) Lymph % (Auto) [place] % (Auto) Eos % (Auto) Baso % (Auto) Lymph # (Auto) [place] # (Auto) Eos # (Auto) Baso # (Auto) Abs Immat Gran (auto) Absolute Neuts (auto) Absolute Nucleated RBC Nucleated RBC % (auto) Smear Tech's Comments PT INR APTT VBG pH VBG pCO2 VBG pO2 VBG HCO3 VBG O2 Saturation VBG Base Excess Anion Gap 22 H Estim Creat Clear Calc 91.6 Estimated GFR > 60 POC Glucose 146 H Random Glucose 157 H Calcium 9.3 D Total Bilirubin 0.4 AST 25 ALT 14 Alkaline Phosphatase 57 Total Creatine Kinase B-Natriuretic Peptide Total Protein 6.8 Albumin 4.7 Beta-Hydroxybutyrate ECG Attestation: I personally reviewed and interpreted this ECG as follows: (Normal sinus rhythm, right bundle branch block not new, QTC 490) Prior ECG tracings: available for review Imaging Radiologist's Impressions: CT abdomen and pelvis pending Assessment and Plan (1) Diabetic ketosis without coma: Status: Acute Plan Pt is a 55 yo male with PMH NIDDM, marijuana use 2 blunts per day, HTN, alcohol abuse currently sober for the last 7 years, recent multiple ED visits for persistent nausea/vomiting, diverticulosis, Barretts esophagus, remote history in high school of using illicit drugs but patient denies history of IV drug abuse presented to the emergency room with increasing not the and vomiting that started last evening. Workup in the emergency department noted patient to be in a ketotic state, max BG 273. Ketosis secondary to dehydration, Jardiance Anion gap 22, CO2 17, beta hydroxybutyrate 8.9. MAX BG 273. Patient experiencing polyphagia, polydipsia and polyuria. Pt received 10 u REG insulin in ED Antiemtics for N/V, monitor Qtc (490 on initial ECG) HGB A1C, Lactic Acid and UA pending IV fluids initiated in the emergency department, patient continues on lactated Ringer's 100 mL/hour Lantus 8 units now, then 15 units at HS (calculation completed by attending Dr. Yu) NPO Sliding scale insulin for NPO status CT of the abdomen and pelvis pending Follow BMP, HGBA1C Discontinuing Jardiance Metformin held Patient has been contemplating stopping Trulicity (1.5 mg SC weekly) prior to admission today, will be discussing with his zookeeper in the outpatient setting. Patient is also okay with stopping the medication if this is recommended this admission. NIDDM Pt normally on metformin, jardiance and Trulicity only Jardiance discontinued noting ketosis (? early euglycemic DKA) As above, pt is contemplating stopping the Trulicity Pt started on Lantus as above SSI for NPO status Diabetic education ordered A1C pending Marijuana use 2 blunts per day, last use over 24 hours ago No hx of hyperemisis cannibus induced cyclical vomiting Capsaician cream topically prn Prolonged Qtc QTC 490, in sinus rhythm Repeat in AM to monitor as pt required Zofran X1 so far MG 1.8, will order 2 gms IV, goal to keep > 2.0 Harrison's Esophagus with active reflux Increased reflux related to current N/V Protonix 40 mg IV BID Pt has been prescribed omeprazole but stopped the medication some time ago. Education provided on importance of continuing omeprazole at home. Hypertension Patient states he has been on lisinopril but this is not currently on his medication reconciliation Await completion of Med rec by pharmacy and ordered lisinopril if indicated Renal function stable DVT prophylaxis: Lovenox Med rec pending Full Code status Quality Stroke Does the patient have a stroke diagnosis?: No Reason for No Anti-thrombotic by Day Two: N/A - Med Ordered VTE Prior VTE?: No VTE Risk Level:: Medical - low VTE Device Contraindication: N/A - Device Ordered VTE Drug Contraindication: N/A - Med Ordered
[2025-06-06 00:19] LABS: Lipase 70 U/L (8-78); Magnesium 1.8 mg/dL (1.6-2.6)
[2025-06-06] MEDS: Lactated Ringers 1,000 ML 100 ML IVCONT ×2 (00:21→08:10)
[2025-06-06] MEDS: Milk of Magnesia 30 ML ORAL.SUSP PO (00:23)
[2025-06-06 00:52] VITALS: BP 122/46; PULSE 97; RESP 20; TEMP 37.1; O2SAT 100
[2025-06-06 01:18] LABS: Appearance Urine Clear; Glucose Urine UA >=1000 mg/dL (Negative); PH 5.5 (5.0-9.0); Specific Gravity - Urine 1.025 (1.005-1.025); UMIC TRIGGER UA YES
[2025-06-06 01:45] LABS: Glucose, Whole Blood 176 mg/dL (60-115)
[2025-06-06] MEDS: Insulin Glargine,Hum.rec.anlog 100 UNIT/ML 10 ML VIAL 8 UNIT SUBCUT (01:57)
[2025-06-06] MEDS: Magnesium Sulfate/H2O 2 GM/50 ML PIGGYBACK IV (01:57)
[2025-06-06 03:33] VITALS: BMI 25.6
[2025-06-06 03:39] VITALS: BP 147/68; PULSE 93; RESP 18; TEMP 37.3; O2SAT 99
[2025-06-06 05:48] LABS: Glucose, Whole Blood 148 mg/dL (60-115)
[2025-06-06 05:50] LABS: MANUAL DIFF FLAG NO
[2025-06-06 05:57] LABS: Hematocrit 35.3 % (42.0-52.0); Hemoglobin 12.2 g/dl (14.0-18.0); Imm Gran Abs Auto 0.06 X10*3/uL (0.00-0.03); Imm Gran Pct Auto 0.4 % (0.0-0.4); Lymphocytes Absolute Auto 1.2 X10*3/uL (1.2-4.9); Mean Corpuscular HGB Conc 34.6 g/dl (31.0-36.0); Mean Corpuscular Hemoglobin 28.8 pg (27.0-33.0); Mean Corpuscular Volume 83.5 fL (80.0-98.0); NRBC Abs Auto 0.000 X10*3/uL (0.0-0.012); NRBC Pct Auto 0.0 /100WBC (0.0-0.2); Platelet Count 304 X10*3/uL (160-400); Red Blood Count 4.23 X10*6/uL (4.60-5.80); White Blood Count 13.5 X10*3/uL (4.8-10.8)
[2025-06-06 06:19] LABS: Alanine Aminotransferase 13 U/L (0-40); Albumin Level 4.5 g/dL (3.5-5.0); Alkaline Phosphatase 53 U/L (39-117); Anion Gap 21 (12-20); Aspartate Amino Transferase 32 U/L (5-37); Blood Urea Nitrogen 22 mg/dL (9-16); Calcium 8.9 mg/dL (8.4-10.2); Carbon Dioxide 14 mmol/L (22-29); Chloride 110 mmol/L (96-108); Creatinine Clr Calc Pharmacy 86.1; Estimated Glomerular Filt Rate > 60; Potassium 3.8 mmol/L (3.3-5.1); Sodium 141 mmol/L (135-145); Total Protein 6.5 g/dL (6.5-8.0)
--- NOTE | 2025-06-06 06:21 | PC.NURSE ---
Patient able to tolerate ice chips in ED, requesting more. OK per overnight provider.
[2025-06-06 07:21] VITALS: BP 126/60; PULSE 84; RESP 16; TEMP 37.3; O2SAT 97
[2025-06-06 07:29] LABS: Hemoglobin A1C 227.7129 umol/L; Total Hemoglobin (HGBA1C) 3195.1442 umol/L
--- NOTE | 2025-06-06 08:00 | ECG_ITS ---
Test Reason : SOB Blood Pressure : */* mmHG Vent. Rate : 81 BPM Atrial Rate : 81 BPM P-R Int : 132 ms QRS Dur : 144 ms QT Int : 418 ms P-R-T Axes : 67 33 41 degrees QTcB Int : 485 ms Normal sinus rhythm Right bundle branch block Abnormal ECG When compared with ECG of 05-Jun-2025 18:50, No significant change was found Referred By: Debra Eubanks Electronically Signed By: Porter Escobar
[2025-06-06] MEDS: iohexoL 350 MG/ML 100 ML INFUS..BTL IV (08:58)
--- NOTE | 2025-06-06 09:12 | PHA.MEDREC ---
Addendum entered by Julian Arechiga PharmD 06/06/25 09:15: reviewed, note pt took trulicity 06/02/25, not the . Original Note: Pharmacy Consult ? Medication Reconciliation Pharmacy has completed the medication reconciliation. Spoke to patient to confirm med list. Patient states he is no longer taking Cetirizine 10 mg. Patient confirmed Trulicity 1.5 mg every Wednesday, last dose was 06/09/25. Patient states he last took all of his medications Wednesday06/04/25.
--- NOTE | 2025-06-06 10:33 | HO.PM.IMPN ---
Subjective Subjective Date of Service: 06/06/25 Interval History: f/u on DKA, bicab still low No futher nausea or vomitting Physical Exam Vital Signs: Vital Signs: Last Vital Signs Temp 99.1 F 06/06/25 07:21 Pulse 84 06/06/25 07:21 Resp 16 06/06/25 07:21 BP 126/60 06/06/25 07:21 Pulse Ox 97 06/06/25 07:21 O2 Del Method Room Air 06/06/25 07:21 BMI result Body Mass Index 25.6 General: Well appearing, in no acute distress. Skin: Warm, dry, intact. No rashes or lesions. Head: Normocephalic, atraumatic. EENT: Hearing is intact b/l. Conjunctiva clear. Sclera is anicteric. PERRLA. EOM intact. Moist mucous membranes.? Neck: Supple without LAD Cardiac: Chest wall symmetric Lungs: Normal respiratory effort without accessory muscle use. CTA bilaterally Abdomen: soft, nondistended, mildly tender to palpation of periumbilical/ epigastric region without rebound/ guarding. active bs x4. Back: No midline spinous or paraspinal tenderness. No step off deformity. Ext: Upper and lower extremities atraumatic, without tenderness, deformity, swelling or erythema Neuro: AOx3. Normal speech. Ambulating with steady gait Const: Other: General: AO X 3, no acute distress Resp: CTA bilateral CVS: S1,S2,RRR GI: +BS, NT, no distention Skin: No rash Neuro: motor grossly intact Psych: appropriate affect Objective Data Active Medications Acetaminophen (Acetaminophen 325 Mg Tablet) 650 mg PO Q6H PRN PRN Reason: Pain, Mild 1-3,fever,headache Albuterol/Ipratropium (Albuterol/Iprat 2.5/0.5mg 3 Ml Ampul.Neb) 3 ml INHALE Q4H PRN PRN Reason: Shortness of Breath/Wheezing Calcium Carbonate (Calcium Carbonate 750 Mg Tab.Chew) 750 mg PO Q4H PRN PRN Reason: Heartburn Capsaicin (Capsaicin 0.025% Cream 60 Gm Tube) 1 appl TOPICAL TID PRN; Protocol PRN Reason: Nausea Dextrose (Dextrose 50 % 25 Gm/50 Ml Syringe) 25 gm IVPUSH Q15M PRN; Protocol PRN Reason: per Hypoglycemia Standing Ord. Enoxaparin Sodium (Enoxaparin Sodium 40 Mg/0.4 Ml Syringe) 40 mg SUBCUT Q24H [facility] Last Admin: 06/06/25 00:20 Dose: 40 mg Documented By: DESIRAE Glucose (Glucose Gel 15 Gm Gel..Gram.) 15 gm PO Q15M PRN; Protocol PRN Reason: per Hypoglycemia Standing Ord. Lactated Ringer's (Lr) 1,000 mls @ 100 mls/hr IVCONT .Q10H [facility] Last Admin: 06/06/25 08:10 Dose: 100 mls/hr Documented By: CESAR Insulin Glargine (Insulin Glargine,Hum.Rec.Anlog 100 Unit/Ml 10 Ml Vial) 15 unit SUBCUT BEDTIME [facility] Insulin Human Lispro (Insulin Lispro 100 Unit/Ml 3 Ml Vial) 0 unit SUBCUT Q6H [facility]; Protocol Last Admin: 06/06/25 05:40 Dose: Not Given Documented By: BRADY Non-Admin Reason: per sliding scale Magnesium Hydroxide (Milk Of Magnesia 30 Ml Oral.Susp) 30 ml PO DAILY PRN PRN Reason: Constipation Last Admin: 06/06/25 00:23 Dose: 30 ml Documented By: DESIRAE Melatonin (Melatonin 3 Mg Tablet) 6 mg PO BEDTIME PRN PRN Reason: Insomnia Ondansetron HCl (Ondansetron Hcl 4 Mg/2 Ml Vial) 4 mg IVPUSH Q8H PRN PRN Reason: Nausea and Vomiting Last Admin: 06/06/25 00:24 Dose: 4 mg Documented By: DESIRAE Pantoprazole Sodium (Pantoprazole Sodium 40 Mg/10 Ml Vial) 40 mg IVPUSH BID@0630,1630 [facility] Last Admin: 06/06/25 05:40 Dose: 40 mg Documented By: BRADY Sodium Chloride (0.9 % Sodium Chloride Flush 3 Ml Syringe) 3 ml IVFLUSH QSHIFT [facility] Last Admin: 06/06/25 06:55 Dose: Not Given Documented By: CESAR Non-Admin Reason: IV Running Labs 06/06/25 05:30 06/06/25 05:30 Labs: Laboratory Results - last 24 hr 06/05/25 06/05/25 06/05/25 18:50 20:08 20:16 MCV 81.3 MCH 28.8 MCHC 35.5 RDW 13.7 Plt Count 356 D MPV 9.5 Immature Gran % (Auto) 0.5 H Neut % (Auto) 91.3 H Lymph % (Auto) 5.8 L [place] % (Auto) 2.2 Eos % (Auto) 0.0 Baso % (Auto) 0.2 Lymph # (Auto) 0.9 L [place] # (Auto) 0.4 Eos # (Auto) 0.0 Baso # (Auto) 0.0 Abs Immat Gran (auto) 0.08 H Absolute Neuts (auto) 14.6 H Absolute Nucleated RBC 0.000 Nucleated RBC % (auto) 0.0 Smear Tech's Comments VERIFIED PT 12.0 INR 1.0 APTT 27.2 VBG pH 7.37 VBG pCO2 17 VBG pO2 68 VBG HCO3 10 L VBG O2 Saturation 92.0 VBG Base Excess -12.1 Anion Gap 27 H Estim Creat Clear Calc 73.6 Estimated GFR > 60 POC Glucose Random Glucose 273 H Estimat Average Glucose Hemoglobin A1c % Lactic Acid Calcium 10.9 H D Magnesium Total Bilirubin 0.6 AST 27 ALT 18 Alkaline Phosphatase 65 Total Creatine Kinase 411 H B-Natriuretic Peptide 19 Total Protein 7.7 Albumin 5.5 H Lipase Beta-Hydroxybutyrate 8.90 H Urine Color Urine Appearance Urine pH Ur Specific Reading Urine Protein Urine Glucose (UA) Urine Ketones Urine Blood Urine Nitrite Ur Leukocyte Esterase Urine RBC Urine WBC Ur Squamous Epith Cells Urine Bacteria Hyaline Casts 06/05/25 06/05/25 06/05/25 20:43 21:03 21:23 MCV MCH MCHC RDW Plt Count MPV Immature Gran % (Auto) Neut % (Auto) Lymph % (Auto) [place] % (Auto) Eos % (Auto) Baso % (Auto) Lymph # (Auto) [place] # (Auto) Eos # (Auto) Baso # (Auto) Abs Immat Gran (auto) Absolute Neuts (auto) Absolute Nucleated RBC Nucleated RBC % (auto) Smear Tech's Comments PT INR APTT VBG pH VBG pCO2 VBG pO2 VBG HCO3 VBG O2 Saturation VBG Base Excess Anion Gap Estim Creat Clear Calc Estimated GFR POC Glucose 205 H 180 H 159 H Random Glucose Estimat Average Glucose Hemoglobin A1c % Lactic Acid Calcium Magnesium Total Bilirubin AST ALT Alkaline Phosphatase Total Creatine Kinase B-Natriuretic Peptide Total Protein Albumin Lipase Beta-Hydroxybutyrate Urine Color Urine Appearance Urine pH Ur Specific Reading Urine Protein Urine Glucose (UA) Urine Ketones Urine Blood Urine Nitrite Ur Leukocyte Esterase Urine RBC Urine WBC Ur Squamous Epith Cells Urine Bacteria Hyaline Casts 06/05/25 06/05/25 06/05/25 21:43 22:41 23:55 MCV MCH MCHC RDW Plt Count MPV Immature Gran % (Auto) Neut % (Auto) Lymph % (Auto) [place] % (Auto) Eos % (Auto) Baso % (Auto) Lymph # (Auto) [place] # (Auto) Eos # (Auto) Baso # (Auto) Abs Immat Gran (auto) Absolute Neuts (auto) Absolute Nucleated RBC Nucleated RBC % (auto) Smear Tech's Comments PT INR APTT VBG pH VBG pCO2 VBG pO2 VBG HCO3 VBG O2 Saturation VBG Base Excess Anion Gap 22 H Estim Creat Clear Calc 91.6 Estimated GFR > 60 POC Glucose 146 H Random Glucose 157 H Estimat Average Glucose Hemoglobin A1c % Lactic Acid 1.5 Calcium 9.3 D Magnesium 1.8 Total Bilirubin 0.4 AST 25 ALT 14 Alkaline Phosphatase 57 Total Creatine Kinase B-Natriuretic Peptide Total Protein 6.8 Albumin 4.7 Lipase 70 Beta-Hydroxybutyrate Urine Color Urine Appearance Urine pH Ur Specific [place] Urine Protein Urine Glucose (UA) Urine Ketones Urine Blood Urine Nitrite Ur Leukocyte Esterase Urine RBC Urine WBC Ur Squamous Epith Cells Urine Bacteria Hyaline Casts 06/06/25 06/06/25 06/06/25 01:11 01:40 05:30 MCV 83.5 MCH 28.8 MCHC 34.6 RDW 14.3 Plt Count 304 MPV 9.3 L Immature Gran % (Auto) 0.4 Neut % (Auto) 86.0 H Lymph % (Auto) 9.0 L [place] % (Auto) 4.5 Eos % (Auto) 0.0 Baso % (Auto) 0.1 Lymph # (Auto) 1.2 [place] # (Auto) 0.6 Eos # (Auto) 0.0 Baso # (Auto) 0.0 Abs Immat Gran (auto) 0.06 H Absolute Neuts (auto) 11.6 H Absolute Nucleated RBC 0.000 Nucleated RBC % (auto) 0.0 Smear Tech's Comments PT INR APTT VBG pH VBG pCO2 VBG pO2 VBG HCO3 VBG O2 Saturation VBG Base Excess Anion Gap 21 H Estim Creat Clear Calc 86.1 Estimated GFR > 60 POC Glucose 176 H Random Glucose 155 H Estimat Average Glucose 203 Hemoglobin A1c % 8.7 H Lactic Acid Calcium 8.9 Magnesium Total Bilirubin 0.4 AST 32 ALT 13 Alkaline Phosphatase 53 Total Creatine Kinase B-Natriuretic Peptide Total Protein 6.5 Albumin 4.5 Lipase Beta-Hydroxybutyrate Urine Color Yellow Urine Appearance Clear Urine pH 5.5 Ur Specific Reading 1.025 Urine Protein 300 (3+) H Urine Glucose (UA) >=1000 H Urine Ketones >=160 Urine Blood Large (3+) H Urine Nitrite Negative Ur Leukocyte Esterase Negative Urine RBC 3-5 H Urine WBC 0-5 Ur Squamous Epith Cells 0-2 Urine Bacteria None Seen Hyaline Casts 0-2 06/06/25 05:39 MCV MCH MCHC RDW Plt Count MPV Immature Gran % (Auto) Neut % (Auto) Lymph % (Auto) [place] % (Auto) Eos % (Auto) Baso % (Auto) Lymph # (Auto) [place] # (Auto) Eos # (Auto) Baso # (Auto) Abs Immat Gran (auto) Absolute Neuts (auto) Absolute Nucleated RBC Nucleated RBC % (auto) Smear Tech's Comments PT INR APTT VBG pH VBG pCO2 VBG pO2 VBG HCO3 VBG O2 Saturation VBG Base Excess Anion Gap Estim Creat Clear Calc Estimated GFR POC Glucose 148 H Random Glucose Estimat Average Glucose Hemoglobin A1c % Lactic Acid Calcium Magnesium Total Bilirubin AST ALT Alkaline Phosphatase Total Creatine Kinase B-Natriuretic Peptide Total Protein Albumin Lipase Beta-Hydroxybutyrate Urine Color Urine Appearance Urine pH Ur Specific [place] Urine Protein Urine Glucose (UA) Urine Ketones Urine Blood Urine Nitrite Ur Leukocyte Esterase Urine RBC Urine WBC Ur Squamous Epith Cells Urine Bacteria Hyaline Casts Assessment and Plan (1) Diabetic ketosis without coma: Status: Acute Plan Pt is a 55 yo male with PMH NIDDM, marijuana use 2 blunts per day, HTN, alcohol abuse currently sober for the last 7 years, recent multiple ED visits for persistent nausea/vomiting, diverticulosis, Barretts esophagus, remote history in high school of using illicit drugs but patient denies history of IV drug abuse presented to the emergency room with increasing not the and vomiting that started last evening. Workup in the emergency department noted patient to be in a ketotic state, max BG 273. DKA d/t Jardiance and dehydration. GAP now 21, Bicab down to 14 Patient has chronically low bicab, there maybe underlying tubular acidosis hold jardiance IVF with LR nephrology consult, repeat labs DM, as abobe, hold metforming Lantus and SSI as ordered Marijuana use 2 blunts per day, last use over 24 hours ago No hx of hyperemisis cannibus induced cyclical vomiting Capsaician cream topically prn Prolonged Qtc 480, monitor Harrison's Esophagus with active reflux PO PPI Hypertension Lisinopril DVT prophylaxis: Lovenox Full Code status Quality Stroke Does the patient have a stroke diagnosis?: No Reason for No Anti-thrombotic by Day Two: N/A - Med Ordered VTE Prior VTE?: No VTE Risk Level:: Medical - low VTE Device Contraindication: N/A - Device Ordered VTE Drug Contraindication: N/A - Med Ordered
[2025-06-06 11:27] LABS: Glucose, Whole Blood 119 mg/dL (60-115)
[2025-06-06 11:33] LABS: Anion Gap 17 (12-20); Carbon Dioxide 18 mmol/L (22-29); Chloride 108 mmol/L (96-108); Potassium 3.9 mmol/L (3.3-5.1); Sodium 139 mmol/L (135-145)
--- NOTE | 2025-06-06 13:02 | P.CONNP_ITS ---
History of Present Illness Reason for Consult Consult date: 06/06/25 Chief Complaint Chief complaint: Nausea/Vomiting History of Present Illness Narrative: 55 y/o with a medical history of diabetes on SGLT2i, daily marijuana use, HTN, alcohol use disorder sober x7 years, remote hx IVDU in high school, recent multiple visits for barretts esophagus and persistent nausea/vomiting. Presented 06/05 with persistent nausea and vomiting x1 day. He was working outside in the heat and not drinking water. he reports his most recent A1c was 10 about 1 month ago- states prior to that was 7, he had a bad preiod eating leftover Easter candy. Nephrology consulted for metabolic acidosis, ?tubular acidosis highest blood sugar reading 205 on 06/05 best hydroxybuterate 8.9 creatinine is 0.9-1.17, currently 1.00 this a.m. serum CO2 was 12 on presentation, improved to 17 that evening, today is 14 in early a.m., 18 late morning. venous pH is 7.37. SGLT2 has been held, pt receiving LR IVF reports his nausea has resolved, no vomiting since yesterday. Reports was constipated, had BM this a.m. Reports he has been making urine. Denies chest pain, shortness of breath, abdominal/flank pain, urinary symptoms, lower extremity edema. Denies other symptoms/concerns. States he is feeling much better. Review of Systems Review of Systems Yes all other systems are reviewed and are negative [facility] Past Medical History Medical History Dysphagia Alcohol abuse Harrison esophagus Hypertension Diabetes Anxiety Surgical History Surgical History H/O hernia repair Social History Social History Household Members: Significant Other Housing: House Do you presently have visiting nurse or other home services: No Unable to assess alcohol history related to: Unknown Alcohol intake: former Patient Tobacco Use Status: Current everyday Tobacco user Cigarettes Per Day: 4 Substance Use Type: Marijuana service: No Travel History Ebola Risk: Travel/Contact With Anyone From Affected Area/s: No Has Patient Experienced Ebola Symptoms: No Meds Allergies Allergy/AdvReac Type Severity Reaction Status Date / Time No Known Allergies Allergy Verified 06/05/25 18:34 Active Medications: Current Medications Acetaminophen (Acetaminophen 325 Mg Tablet) 650 mg PO Q6H PRN PRN Reason: Pain, Mild 1-3,fever,headache Albuterol/Ipratropium (Albuterol/Iprat 2.5/0.5mg 3 Ml Ampul.Neb) 3 ml INHALE Q4H PRN PRN Reason: Shortness of Breath/Wheezing Atorvastatin Calcium (Atorvastatin Calcium 20 Mg Tablet) 20 mg PO BEDTIME HERNAN Calcium Carbonate (Calcium Carbonate 750 Mg Tab.Chew) 750 mg PO Q4H PRN PRN Reason: Heartburn Capsaicin (Capsaicin 0.025% Cream 60 Gm Tube) 1 appl TOPICAL TID PRN; Protocol PRN Reason: Nausea Dextrose (Dextrose 50 % 25 Gm/50 Ml Syringe) 25 gm IVPUSH Q15M PRN; Protocol PRN Reason: per Hypoglycemia Standing Ord. Enoxaparin Sodium (Enoxaparin Sodium 40 Mg/0.4 Ml Syringe) 40 mg SUBCUT Q24H HERNAN Last Admin: 06/06/25 00:20 Dose: 40 mg Fenofibrate (Fenofibrate,Micronized 134 Mg Capsule) 134 mg PO DAILY COUNTS INCLUDE 234 BEDS AT THE [facility] Fluticasone Propionate (Fluticasone Propionate Nasal 16 Gm [place]) 1 spray NOSTRIL-B BID COUNTS INCLUDE 234 BEDS AT THE [facility] Glucose (Glucose Gel 15 Gm Gel..Gram.) 15 gm PO Q15M PRN; Protocol PRN Reason: per Hypoglycemia Standing Ord. Hydroxyzine HCl (Hydroxyzine Hcl 25 Mg Tablet) 25 mg PO TID PRN PRN Reason: Anxiety Lactated Ringer's (Lr) 1,000 mls @ 200 mls/hr IVCONT .Q5H HERNAN Last Infusion: 06/06/25 10:49 Dose: 200 mls/hr Insulin Glargine (Insulin Glargine,Hum.Rec.Anlog 100 Unit/Ml 10 Ml Vial) 15 unit SUBCUT BEDTIME HERNAN Insulin Human Lispro (Insulin Lispro 100 Unit/Ml 3 Ml Vial) 0 unit SUBCUT Q6H HERNAN; Protocol Last Admin: 06/06/25 11:25 Dose: Not Given Lisinopril (Lisinopril 5 Mg Tablet) 5 mg PO DAILY HERNAN; Protocol Magnesium Hydroxide (Milk Of Magnesia 30 Ml Oral.Susp) 30 ml PO DAILY PRN PRN Reason: Constipation Last Admin: 06/06/25 00:23 Dose: 30 ml Melatonin (Melatonin 3 Mg Tablet) 6 mg PO BEDTIME PRN PRN Reason: Insomnia Non-Formulary Medication (Dulaglutide [Trulicity]) 1.5 mg SUBCUT [facility] Ondansetron HCl (Ondansetron Hcl 4 Mg/2 Ml Vial) 4 mg IVPUSH Q8H PRN PRN Reason: Nausea and Vomiting Last Admin: 06/06/25 00:24 Dose: 4 mg Pantoprazole Sodium (Pantoprazole Sodium 40 Mg/10 Ml Vial) 40 mg IVPUSH BID@0630,1630 COUNTS INCLUDE 234 BEDS AT THE [facility] Last Admin: 06/06/25 05:40 Dose: 40 mg Paroxetine HCl (Paroxetine Hcl 30 Mg Tablet) 60 mg PO DAILY COUNTS INCLUDE 234 BEDS AT THE [facility] Sodium Chloride (0.9 % Sodium Chloride Flush 3 Ml Syringe) 3 ml IVFLUSH QSHIFT COUNTS INCLUDE 234 BEDS AT THE [facility] Last Admin: 06/06/25 12:34 Dose: Not Given Home Medications ?Medication ?Instructions ?Recorded ?Confirmed ?Last Taken ?Type acetaminophen 300 mg-codeine 30 mg 2 tab PO DAILY PRN Pain 06/06/25 06/06/25 06/04/25 History tablet atorvastatin 20 mg tablet 20 mg PO BEDTIME 06/06/2506/04/25 History dulaglutide 1.5 mg/0.5 mL 1.5 mg subcut SA 06/06/2506/02/25 History subcutaneous pen injector (Trulicity) empagliflozin 25 mg tablet 25 mg PO DAILY 06/06/2506/04/25 History (Jardiance) fenofibrate nanocrystallized 145 145 mg PO DAILY 06/0606/06/25 06/04/25 History mg tablet fluticasone propionate 50 1 spray intranasal BID 06/0606/06/25 06/04/25 History mcg/actuation nasal spray,suspension hydroxyzine HCl 25 mg tablet 25 mg PO TID PRN anxiety 06/06/25 06/06/25 Unknown History lisinopril 5 mg tablet 5 mg PO DAILY 06/06/2506/0606/04/25 History metformin 500 mg tablet,extended 1,000 mg PO BEDTIME 0 06/06/25 06/06/25 06/04/25 History release 24 hr metformin 500 mg tablet,extended 500 mg PO DAILY 06/0606/06/25 06/04/25 History release 24 hr ondansetron 4 mg disintegrating 4 mg PO Q8H PRN nausea /vomiting 06/06/25 06/06/25 Unknown History tablet paroxetine HCl 40 mg tablet 60 mg PO DAILY 06/06/2506/04/25 History Physical Exam Vital Signs: Last Vital Signs Temp 99.1 F 06/06/25 07:21 Pulse 84 06/06/25 07:21 Resp 16 06/06/25 07:21 BP 126/60 06/06/25 07:21 Pulse Ox 97 06/06/25 07:21 O2 Del Method Room Air 06/06/25 07:21 BMI result Body Mass Index 25.6 Const General: no acute distress, alert and awake Resp Effort & Inspection: normal respiratory effort and able to speak in complete sentences Auscultation: clear to auscultation bilaterally Cardio Jugular venous distension: no JVD Rate: regular rate Rhythm: regular rhythm Heart sounds: S1 normal heart sound present and S2 normal heart sound present GI Palpation (GI): Soft to palpation and nontender General: Yes no CVA tenderness Back/Spine/Pelvis Back: no CVA tenderness Skin Rashes: no rashes Extrem General: No edema Results Lab Results 06/06/25 05:30 06/06/25 11:14 Lab results: Chemistry 06/05/25 06/05/25 06/06/25 18:50 22:41 05:30 Sodium 145 145 141 Potassium 4.2 3.9 3.8 Carbon Dioxide 12 L 17 L 14 L BUN 25 H 23 H 22 H Creatinine 1.17 0.94 1.00 Calcium 10.9 H D 9.3 D 8.9 06/06/25 11:14 Sodium 139 Potassium 3.9 Carbon Dioxide 18 L BUN Creatinine Calcium Hematology 06/05/25 06/06/25 18:50 05:30 WBC 16.0 H 13.5 H Hgb 14.5 12.2 L Plt Count 356 D 304 Urinalysis 06/06/25 01:11 Urine Color Yellow Urine Appearance Clear Urine pH 5.5 Ur Specific [place] 1.025 Urine Protein 300 (3+) H Urine Glucose (UA) >=1000 H Urine Ketones >=160 Urine Blood Large (3+) H Urine Nitrite Negative Ur Leukocyte Esterase Negative Urine RBC 3-5 H Urine WBC 0-5 Ur Squamous Epith Cells 0-2 Hyaline Casts 0-2 Assessment and Plan (1) Metabolic acidosis: Status: Acute Plan AG metabolic acidosis likely secondary to non-diabetic ketoacidosis from SGLT2 inhibitor has been improving with jardiance held and IVF, serum bicarb has improved to 18 recommend continuing hydration, anticipate continued improvement with SGLT2 held Continue supportive care Discussed with Dr Reynaga. Procedures Date of Service Date of Service: 06/06/25
--- NOTE | 2025-06-06 13:22 | MHC.CM.PN ---
PT LIVES WITH HIS HAD NO SERVICES HAS OWN RIDE HOME DC PLAN HOME NO SERVICES
[2025-06-06] MEDS: Lactated Ringers 1,000 ML 200 ML IVCONT ×2 (14:39→19:27)
[2025-06-06 15:11] VITALS: BP 132/61; PULSE 76; RESP 18; TEMP 37; O2SAT 99
[2025-06-06 16:29] LABS: Glucose, Whole Blood 160 mg/dL (60-115)
[2025-06-06 19:20] VITALS: BP 139/62; PULSE 74; RESP 17; TEMP 36.9; O2SAT 99
[2025-06-06 21:07] LABS: Glucose, Whole Blood 129 mg/dL (60-115)
[2025-06-06] MEDS: Insulin Glargine,Hum.rec.anlog 100 UNIT/ML 10 ML VIAL 15 UNIT SUBCUT (21:23)
[2025-06-07] MEDS: Lactated Ringers 1,000 ML 200 ML IVCONT ×2 (01:07→05:36)
[2025-06-07 03:20] VITALS: BP 138/67; PULSE 71; RESP 18; TEMP 36.7; O2SAT 98
[2025-06-07 06:14] LABS: Anion Gap 12 (12-20); Blood Urea Nitrogen 13 mg/dL (9-16); Calcium 8.3 mg/dL (8.4-10.2); Carbon Dioxide 25 mmol/L (22-29); Chloride 111 mmol/L (96-108); Creatinine Clr Calc Pharmacy 101.3; Estimated Glomerular Filt Rate > 60; Potassium 3.6 mmol/L (3.3-5.1); Sodium 144 mmol/L (135-145)
[2025-06-07 07:46] VITALS: BP 158/71; PULSE 72; RESP 16; TEMP 37; O2SAT 98
[2025-06-07 07:47] LABS: Glucose, Whole Blood 77 mg/dL (60-115)
--- NOTE | 2025-06-07 09:08 | PM.DS ---
DS: Providers Provider Date of Service: 06/07/25 Date of admission: 06/05/25 23:47 Date of discharge: 06/07/25 Primary care physician: Vicente Thomason III, MD Consults: 06/06/25 08:52 Consult to Nephrology Routine Consulting Provider: [facility] Reason for consultation: acute on chronic metabolic acidosis ? Tubular acidosis DS: Diagnosis Discharge Diagnosis (1) Metabolic acidosis: Status: Acute DS: Summary Hospital Course Hospital Course: admission hpi Chief Complaint: nausea vomiting Pt is a 55 yo male with PMH NIDDM, marijuana use 2 blunts per day, HTN, alcohol abuse currently sober for the last 7 years, recent multiple ED visits for persistent nausea/vomiting, diverticulosis, Barretts esophagus, remote history in high school of using illicit drugs but patient denies history of IV drug abuse presents to the emergency room with new onset reoccurring nausea and vomiting that started last evening but got worse during the day along with shortness of breath and dizziness. Patient had worked outside during the day in the heat and was not drinking water. In addition patient reports that he is having polyuria, polydipsia and is extremely hungry at this time. Patient does have a glucometer at home but rarely checks his blood sugar on a regular basis. Patient is not currently on insulin for diabetes management. Patient states the last time he ate was last evening when he had 2 hamburgers. Patient did have associated diarrhea especially with the nausea and vomiting earlier today. Diarrhea has since resolved. Patient's last normal BM was 2 days prior. This is the first admission for pt noting multiple ED visits over the last 3 months for same issues. Patient takes metformin and Jardiance along with Trulicity for his diabetes management at home. Patient does follow with an system support administrator in the outpatient setting. It has been sometime since he has seen his system support administrator. Patient is on Trulicity 1.5 mg weekly. Patient has been on this medication for a long period of time without issues related to bowel obstruction or gastroparesis. Patient has been considering stopping the Trulicity due to these ongoing issues with nausea and vomiting and frequent ED visits. Pt instructed to discuss with PCP/system support administrator in the outpatient setting regarding this plan unless deemed contraindicated this admission. Patient is also on Jardiance which can induce euvolemic DKA in a type 2 diabetic. This admission, labs indicate a ketotic state, with an anion gap of 22, a CO2 of 17 and a beta hydroxybutyrate level of 8.9. Max blood sugar 273 since arrival. Patient received 1 dose of 10 units of regular insulin in the emergency department. Blood glucose levels are now trending approximately 150 mg/dL. Patient has received lactated Ringer's and will continue on an hourly rate. UA with reflex pending. Patient remains NPO. Patient denies history of pancreatitis and lipase is currently 70. Patient does have history of Harrison's esophagus in his experiencing extreme GERD during examination for admission. Patient denies any hematemesis or hemoptysis. Patient was supposed to be taking omeprazole but stopped that medication some time ago. Patient also smokes marijuana daily, approximately 2 blunts per day. Patient denies history of hyper emesis cyclical syndrome related to marijuana use. Patient has not had any marijuana in over 24 hours. hospital course: Pt is a 55 yo male with PMH NIDDM, marijuana use 2 blunts per day, HTN, alcohol abuse currently sober for the last 7 years, recent multiple ED visits for persistent nausea/vomiting, diverticulosis, Barretts esophagus, remote history in high school of using illicit drugs but patient denies history of IV drug abuse presented to the emergency room with increasing not the and vomiting that started last evening. Workup in the emergency department noted patient to be in a ketotic state, max BG 273. He was admitted for management of DKA related to jardiance and dehydration. His management consited of IVF, discontinuation of jardiance and monitoring of sodium bicab. Sodium bicab has normalized, nausea and vomiting has resolved and he is tolerating regular diet. He was seen by nephrology service that guided us with his management. He is advised to indefinately avoid jardiance or similar meds. Diabetes, (A1C =8.7) Stop Jardiance continue Metformin Starting Lantus and SSI by pen Marijuana use, advise on potential cycylical vomiting as side effect Prolonged Qtc 480, monitor Harrison's Esophagus with active reflux PO PPI Hypertension Lisinopril Time Attestation Discharge Coordination Time (in mins): 45 Quality: Safe Use of Opioids Does Pt have an Active Cancer Diagnosis on the Problem List?: No Quality: Stroke Does the patient have a stroke diagnosis?: No Physical Exam Vital Signs: Vital Signs: Last Vital Signs Temp 98.6 F 06/07/25 07:46 Pulse 72 06/07/25 07:46 Resp 16 06/07/25 07:46 BP 158/71 H 06/07/25 07:46 Pulse Ox 98 06/07/25 07:46 O2 Del Method Room Air 06/07/25 07:46 BMI result Body Mass Index 25.6 Const: Other: General: AO X 3, no acute distress Resp: CTA bilateral CVS: S1,S2,RRR GI: +BS, NT, no distention Skin: No rash Neuro: motor grossly intact Psych: appropriate affect DS: Data Data Completed and Pending Labs on day of discharge: Laboratory Results - last 24 hr 06/06/25 06/06/25 06/06/25 11:14 11:24 16:25 Hold Purple Top Sodium 139 Potassium 3.9 Chloride 108 Carbon Dioxide 18 L Anion Gap 17 BUN Creatinine Estim Creat Clear Calc Estimated GFR POC Glucose 119 H 160 H Random Glucose Calcium 06/06/25 06/07/25 06/07/25 21:02 05:26 07:42 Hold Purple Top SEE NOTE Sodium 144 Potassium 3.6 Chloride 111 H Carbon Dioxide 25 Anion Gap 12 BUN 13 Creatinine 0.85 Estim Creat Clear Calc 101.3 Estimated GFR > 60 POC Glucose 129 H 77 Random Glucose 89 Calcium 8.3 L D Discharge Plan Discharge Anticipated Discharge Date/Time: 06/07/25 09:19 Patient Disposition: Home, Self-Care Discharge Diagnosis: DKA, Cyclical vomiting, Referrals: Vicente Thomason III, MD [Primary Care Provider, Medical] - 1 Week Discharge Medications: Continued atorvastatin 20 mg tablet 20 mg PO BEDTIME acetaminophen-codeine 300-30 mg tablet 2 tab PO DAILY PRN (Reason: Pain) hydroxyzine HCl 25 mg tablet 25 mg PO TID PRN (Reason: anxiety) lisinopril 5 mg tablet 5 mg PO DAILY paroxetine HCl 40 mg tablet 60 mg PO DAILY fluticasone propionate 50 mcg/actuation spray,suspension 1 spray intranasal BID metformin 500 mg tablet extended release 24 hr 500 mg PO DAILY metformin 500 mg tablet extended release 24 hr 1,000 mg PO BEDTIME fenofibrate nanocrystallized 145 mg tablet 145 mg PO DAILY Trulicity 1.5 mg/0.5 mL pen injector 1.5 mg subcut SA ondansetron 4 mg tablet,disintegrating 4 mg PO Q8H PRN (Reason: nausea/vomiting) Discontinued Jardiance 25 mg tablet 25 mg PO DAILY Diet: Advance to usual diet Activity on Discharge: As tolerated Stand Alone Forms: Patient Portal Discharge page Print Language: Norwegian Care Plan Goals: recovery from DKA, dehydration and cyclical vomiting Health Concerns: DKA dehydration cyclical vomiting Plan of Treatment: stop taking Jardiance drink plenty of fluid follow up with your Doctor in a week, you may need adjustment in diabetes medications Assessment: see above
[2025-06-07 09:14] LABS: MANUAL DIFF FLAG NO
[2025-06-07 09:34] LABS: Hematocrit 34.0 % (42.0-52.0); Hemoglobin 11.8 g/dl (14.0-18.0); Imm Gran Abs Auto 0.01 X10*3/uL (0.00-0.03); Imm Gran Pct Auto 0.1 % (0.0-0.4); Lymphocytes Absolute Auto 1.5 X10*3/uL (1.2-4.9); Mean Corpuscular HGB Conc 34.7 g/dl (31.0-36.0); Mean Corpuscular Hemoglobin 29.1 pg (27.0-33.0); Mean Corpuscular Volume 83.7 fL (80.0-98.0); NRBC Abs Auto 0.000 X10*3/uL (0.0-0.012); NRBC Pct Auto 0.0 /100WBC (0.0-0.2); Platelet Count 280 X10*3/uL (160-400); Red Blood Count 4.06 X10*6/uL (4.60-5.80); White Blood Count 7.9 X10*3/uL (4.8-10.8)
[2025-06-07 11:19] LABS: Glucose, Whole Blood 93 mg/dL (60-115)
[2025-06-07 13:56] VITALS: BP 162/71; PULSE 70; RESP 18; TEMP 37.1; O2SAT 99
== END 2025-06-07 14:00 | disposition home or self-care (01) | DRG 420 ==
LOC: HO.ED 19:54 → HO.EDOVER 06-06 00:19 → HO.S3 06-06 02:08
PROVIDERS: Nurse Practitioner Family; Physician Assistant; Admitting Provider Student in an Organized Health Care Education/Training Program; Emergency Provider Emergency Medicine; PCP Internal Medicine; Visit Provider Internal Medicine
DX: E11.10 Type 2 diabetes mellitus with ketoacidosis without coma (principal); E86.0 Dehydration; F10.11 Alcohol abuse, in remission; K21.9 Gastro-esophageal reflux disease without esophagitis; I10 Essential (primary) hypertension; R94.31 Abnormal electrocardiogram [ECG] [EKG]; T38.3X5A Adverse effect of insulin and oral hypoglycemic [antidiabetic] drugs, initial encounter; K22.70 Barrett's esophagus without dysplasia; Z79.4 Long term (current) use of insulin; Z79.51 Long term (current) use of inhaled steroids; Z79.85 Long-term (current) use of injectable non-insulin antidiabetic drugs; Z79.84 Long term (current) use of oral hypoglycemic drugs; Z79.899 Other long term (current) drug therapy
CPT/HCPCS: 36415; 74177; 80048; 80051; 80053; 81001; 82010; 82550; 82803; 82947; 83036; 83605; 83690; 83735; 83880; 84484; 85025; 85610; 85730; 93005; 99221; 99285; J1650; J2405; J2470; J3475; J7120; Q9967

== ENCOUNTER → 2025-06-05 18:36 | Outpatient (BNV) | payer OTHER, SELFPAY | PROVIDERS: Admitting Provider Student in an Organized Health Care Education/Training Program; Emergency Provider Emergency Medicine; PCP Internal Medicine; Visit Provider Internal Medicine Cardiovascular Disease | DX: I45.10 Unspecified right bundle-branch block (principal) | CPT/HCPCS: 93010 ==

== ENCOUNTER 2025-06-05 23:47 | Outpatient (BNV) | payer OTHER, SELFPAY | END 2025-06-06 08:00 | PROVIDERS: Admitting Provider Student in an Organized Health Care Education/Training Program; Emergency Provider Emergency Medicine; PCP Internal Medicine; Visit Provider Internal Medicine Cardiovascular Disease | DX: I45.10 Unspecified right bundle-branch block (principal) | CPT/HCPCS: 93010 ==

== ENCOUNTER 2025-06-05 23:47 | Outpatient (BNV) | payer OTHER, SELFPAY | END 2025-06-06 08:33 | PROVIDERS: Admitting Provider Student in an Organized Health Care Education/Training Program; Emergency Provider Emergency Medicine; PCP Internal Medicine; Visit Provider Radiology Diagnostic Radiology | DX: K57.30 Diverticulosis of large intestine without perforation or abscess without bleeding (principal); I25.10 Atherosclerotic heart disease of native coronary artery without angina pectoris; N28.1 Cyst of kidney, acquired | CPT/HCPCS: 74177 ==

== ENCOUNTER → 2025-06-05 23:47 | Outpatient (BNV) | payer OTHER, SELFPAY | PROVIDERS: Admitting Provider Student in an Organized Health Care Education/Training Program; Emergency Provider Emergency Medicine; PCP Internal Medicine; Visit Provider Nurse Practitioner Family | DX: E11.10 Type 2 diabetes mellitus with ketoacidosis without coma (principal) | CPT/HCPCS: 99223; 99232 ==

== ENCOUNTER → 2025-06-05 23:47 | Outpatient (BNV) | payer OTHER, SELFPAY | PROVIDERS: Admitting Provider Student in an Organized Health Care Education/Training Program; Emergency Provider Emergency Medicine; PCP Internal Medicine; Visit Provider Nurse Practitioner Family | DX: E87.20 Acidosis, unspecified (principal) | CPT/HCPCS: 99222 ==

== ENCOUNTER 2025-06-25 10:31 | Outpatient (AMB) | payer OTHER, SELFPAY ==
--- NOTE | 2025-06-25 10:37 | A.OFFVIS_ITS ---
Intake Visit Reasons: 3 Months Allergies No Known Allergies Allergy (Verified 06/25/25 10:47) Medication List - Last Reconciled 06/25/25 by Emily Saleh CNP acetaminophen-codeine 300-30 mg 2 tabs PO DAILY PRN atorvastatin 20 mg PO BEDTIME dulaglutide (Trulicity) 1.5 mg subcut SA fenofibrate nanocrystallized 145 mg PO DAILY fluticasone propionate 50 mcg/actuation 1 spray intranasal BID hydroxyzine HCl 25 mg PO TID PRN insulin glargine (Lantus Solostar U-100 Insulin) 15 units (0.15 mL) subcut DAILY 90 days insulin lispro (Humalog KwikPen (U-100) Insulin) 1 sliding scale dose subcut QIDACHS MDD 40 lisinopril 5 mg PO DAILY metformin ER 500 mg PO DAILY metformin ER 1,000 mg PO BEDTIME omeprazole 20 mg PO DAILY 28 days ondansetron 4 mg PO Q8H PRN paroxetine HCl 60 mg PO DAILY pen needle, diabetic Use four times a day or as directed. HPI Comments Details: He was admitted to [facility] at end of 05/2025 for DKA. Medications adjusted and blood sugar has been under better control. Pain and skin sensitivity was about the same in feet. Gets sharp pain to R thumb in afternoon. No new weakness. Hands, forearms, legs, and feet sensitive to touch. He started to get some occasional pain to left lower back into left hip and down leg into toes after activity which felt like like a heat down his leg and leg felt heavy in spring 2024, had to sit for about 5 minutes and pain resolved. Pain got better and did not have XR done. None in the last week. No falls. Sleep was okay, about 4-5 hours/night. Mood was okay. Managing pain with Tylenol #3 2/day, initially had some trouble adjusting to 2/day from 3/day.?Tramadol does not work as well as Tylenol #3. Does lot of work in the yard. No chest sensitivity, slight abdomen sensitivity to anything touching. Bad arthritis on MRI and had arthroscopic right knee surgery, will not need TKR for now. Left hand finger tips are numb. Diagnosed with diabetes mellitus in 2012. Burning sensation, pins and needles sensation keeping him up at night. Has been tried on gabapentin, Lyrica, Cymbalta, doxepin, and amitriptyline with no help or side effects and acting weird. Was using Vicodin one tablet twice a day. [facility] Medical History (Updated 06/25/25 @ 10:46 by Emily Saleh CNP) Anxiety Diabetes mellitus Carpal tunnel syndrome Hypertension Peripheral neuropathy Diabetes Marijuana use Dysphagia Alcohol abuse Harrison esophagus Hypertension Surgical History H/O hernia repair Social History Household Members: Significant Other Housing: House Do you presently have visiting nurse or other home services: No Unable to assess alcohol history related to: Unknown Alcohol intake: former Patient Tobacco Use Status: Current everyday Tobacco user Cigarettes Per Day: 4 Substance Use Type: Marijuana service: No Review of Systems Const Denies chills, Denies daytime sleepiness, Reports difficulty sleeping, Reports fatigue, Denies fever(s), Denies frequent falls, Reports headache(s), Denies increased appetite, Denies poor appetite, Denies snoring, Denies weakness, Denies weight gain and Denies weight loss Eyes Denies loss of vision ENT Denies vertigo, Reports dizziness, Reports headache(s) and Denies neck pain Card Denies chest pain at rest, Denies chest pain with activity, Denies syncope, Denies leg edema, Denies palpitations, Denies dyspnea and Denies dyspnea on exertion Resp Denies cough, Denies dyspnea, Denies dyspnea on exertion and Denies snoring GI Denies abdominal pain, Denies constipation, Denies heartburn, Denies diarrhea and Denies nausea Denies urinary frequency, Denies urinary incontinence and Denies urinary urgency Musc Denies abnormal gait, Reports back pain, Denies myalgias, Denies arthralgias, Denies neck pain, Reports numbness and Reports tingling Neuro Denies abnormal gait, Denies vertigo, Reports dizziness, Denies syncope, Denies frequent falls, Reports headache(s), Denies lack of coordination, Denies loss of vision, Denies memory loss, Reports numbness, Denies Other visual disturbances, Denies restless legs, Denies seizure-like activity, Reports tingling, Denies paresthesias, Denies tremor(s) and Denies weakness Psych Reports anxiety, Reports depression, Denies auditory hallucinations, Denies memory loss and Denies visual hallucinations Endo Reports fatigue and Denies palpitations Physical Exam Const Other: General Appearance:? normal, in no acute distress. Heart:? S1, S2 normal, no murmurs. Lungs:? clear anteriorly and posteriorly. Musculoskeletal:? normal. Extremities:? no edema. Psych:? alert, oriented, cognitive function intact, cooperative with exam. Neuro Other: Abnormal Neurological Findings: 0-1+ ankle reflexes while all other reflexes are 3+. Mild blunting of pinprick sensation below mid tarsal level. Fasciculations in the calf muscles? Mental Status: alert and oriented X 3. Normal attention, orientation, memory, and affect. Cranial Nerves: Pupils are equal, round, and reactive to light. External ocular muscles are intact. Visual szymanski are full, no ptosis. Face is symmetrical, no facial weakness or droop. Facial sensations are normal. Tongue protrudes in midline. Palate elevates symmetrically. Shoulder shrugging is normal Motor Examination: As above. Sensory Exam: As above, otherwise normal light touch, temperature, pinprick, vibration, and joint-position sensations. Rhomberg sign is absent. Coordination: No ataxia. No titubation. Gait Exam: Within normal limits. Cerebellar Signs: [id number] is okay. Extrapyramidal System: No tremor, rigidity with normal facial expressions. No bradykinesia. No bradyphrenia. Normal arm swing and posture. No propulsion or retropulsion. Speech: Normal. No dysphasia or dysarthria. Results Reviewed Results Reviewed: 04/14/23 NCV/EMG: Borderline slowing of the sensory nerves in the upper extremities. Sensory greater than motor peripheral neuropathy in the lower extremities. Normal EMG in the right C5-T1 and right L4-S1 innervated muscles. Assessment & Plan Assessment & Plan (1) Diabetic peripheral neuropathy: Code(s): E11.42 - Type 2 diabetes mellitus with diabetic polyneuropathy Category: Medical Plan: Continue acetaminophen-codeine 300-30mg 2 tablets once a day as needed for pain #60 for 30 days. Control blood sugar, stay physically active. (2) Anxiety: Code(s): F41.9 - Anxiety disorder, unspecified Category: Medical Plan: Continue paroxetine 40mg 1 tablet daily. (3) Lumbar radiculopathy: Code(s): M54.16 - Radiculopathy, lumbar region Category: Medical Plan: Pain was better and he did not have XR done that was ordered at last appointment. Plan Meds tried: gabapentin, Lyrica, Cymbalta, doxepin, amitriptyline Coding Level of Care Code Est Pt Level 4 (98888) Diagnoses Diabetic peripheral neuropathy E11.42 Anxiety F41.9 Lumbar radiculopathy M54.16
--- OUTSIDE RECORDS SUMMARY | 2025-06-25 11:10 | XMS_ITS ---
Author Name [facility] Organization Unknown Care Team Organization Name Specialty Phone Email Start Date End Da te [facility] 09/22/2022
--- OUTSIDE RECORDS SUMMARY | 2025-06-25 11:10 | XMS_ITS | Clinical Summary ---
Author Organization [address] Address [address] [place] [phone] Phone Care Team Providers Care Caterer'S Aide Name Role Phone Vicente Thomason MD Primary Care Provider [phone] Allergies Active Allergy Reactions Criticality Noted Date Comments Other 05/10/2018 Seasonal allergies Medications cetirizine (ZyrTEC) 10 mg tablet Take 1 Tablet by mouth daily for 360 days. 024 Active FREESTYLE LANCETS MISC USE TO TEST BLOOD SUGAR 4 TIMES DAILY DIRECTED 024 Active acetaminophen-c odeine (TYLENOL #3) 300-30 mg per tablet Take 1 tablet by mouth. 017 Active cyanocobalamin, vitamin B-12, (VITAMIN B-12 ORAL) Take 1 Cap by mouth daily. Active PARoxetine (PAXIL) 40 mg tablet TAKE 1 &1/2 TABLETS BY MOUTH IN THE MORNING Active blood sugar diagnostic (FreeStyle Lite Strips) test strip USE TO TEST 3 TIMES A DAY 300 strip 1 025 Active fenofibrate (TRICOR) 145 mg tablet TAKE 1 TABLET BY MOUTH EVERY DAY 90 tablet 1 025 Active atorvastatin (LIPITOR) 20 mg tablet TAKE 1 TABLET BY MOUTH EVERYDAY AT BEDTIME 90 tablet 1 025 Active lisinopriL (PRINIVIL,ZESTR IL) 5 mg tablet Take 1 tablet (5 mg total) by mouth 1 (one) time each day. 90 tablet 1 025 Active metFORMIN XR (GLUCOPHAGE-XR) 500 mg 24 hr tablet TAKE 2 TABLETS BY MOUTH WITH BREAKFAST AND TAKE 1 TABLET BY MOUTH WITH DINNER 270 tablet 1 025 Active hydrOXYzine HCL (ATARAX) 25 mg tablet TAKE 1 TABLET BY MOUTH THREE TIMES A DAY NEEDED FOR ANXIETY 270 tablet 1 025 Active fluticasone propionate (FLONASE) 50 mcg/actuation nasal spray SPRAY 1 SQUIRT IN EACH NOSTRIL 2 TIMES DAILY IN THE MORNING AND IN THE EVENING 48 mL 1 025 Active blood-glucose sensor (FreeStyle Shelton 3 Plus Sensor) deviceIndicatio ns:Type 2 diabetes mellitus with peripheral neuropathy ([facility] V24, [facility] V28) Box = Kit = EA, change the sensor every 15 days 2 kit 11 025 Active Trulicity 1.5 mg/0.5 mL pen injector injection INJECT 1.5 MG SUBCUTANEOUSLY ONCE A WEEK 6 mL 1 025 2024 Discontinued Jardiance 25 mg tabletIndicatio ns:Type 2 diabetes mellitus with other diabetic kidney complication ([facility] V24, [facility] V28) TAKE 1 TABLET BY MOUTH EVERY DAY 30 tablet 025 2024 Discontinued Jardiance 25 mg tabletIndicatio ns:Type 2 diabetes mellitus with other diabetic kidney complication ([facility] V24, [facility] V28) TAKE 1 TABLET BY MOUTH EVERY DAY 30 tablet 025 2024 Discontinued Active Problems Problem Noted Date Diagnosed Date Anxiety 04/04/2024 Harrison's esophagus with dysplasia 04/04/2024 Diverticulosis 04/20/2022 Hepatic steatosis 04/20/2022 Pulmonary nodule 04/20/2022 Epidermal inclusion cyst 10/31/2019 Secondary hypertension 05/26/2019 Diabetes mellitus with renal complications ([facility] V24, [facility] V28) 04/20/2019 Microalbuminuria 04/20/2019 Type 2 diabetes mellitus wit h peripheral neuropathy ([facility] V24, [facility] V28) 08/19/2015 Overview (08/24/2024): Uncontrolled High triglycerides 05/07/2014 Diabetic neuropathy ([facility] V24, [facility] V28) 1 12/04/2012 Overview (08/24/2024): Follows with neurology on a 6-month basis.([place]) Has failed gabapentin, Lyrica, Cymbalta, amitriptyline, doxepin. EMG July 2018 showing sensory greater than motor peripheral neuropathy in the lower extremities. Overweight 02/24/2013 Encounters Date Type Department Care Team Description 06/18/2025 12:00 PM EDT Office Visit [address] [phone] Gurwinder Balbuena MD Type 2 diabetes mellitus with peripheral neuropathy (CMS/HCC V24, CMS/HCC V28) (Primary Dx) 06/08/2025 9:00 AM EDT Office Visit [address] [phone] Gurwinder Balbuena MD Type 2 diabetes mellitus with peripheral neuropathy (CMS/HCC V24, CMS/HCC V28) (Primary Dx) 03/28/2025 8:00 AM EDT Office Visit Adult Medicine [address] [phone] Jeremy Morris PA Hypertension, unspecified type (Primary Dx); High triglycerides; Type 2 diabetes mellitus with peripheral neuropathy (CMS/HCC V24, CMS/HCC V28); Nausea vomiting and diarrhea; Dehydration from Last 3 Months Immunizations Name Administration Dates Next Due Influenza Quadravalent, MDCK , 0.5ml, preservative free (Flucelvax) 6mo and older 11/27/2021 Influenza Quadravalent, MDCK , 0.5ml, with preservative (Flucelvax) 6mo and older 11/02/2017 Influenza trivalent, with pr eservative (Fluzone; Afluria) 6mo and older 08/17/2016,08/19/2015,08/27/2014,10/04 Pneumococcal polysaccharide 23 valent (Pneumovax 23) 2yo and older 12/11/2015 Tdap Tetanus diptheria acell ular pertussis (Boostrix; Adacel) 7yo and older 02/24/2013 Surgical History Surgery Date Site/Laterality Comments HERNIA REPAIR PROCEDURE: FL RPR 1ST INGUN HRNA AGE 6 MO-5 YRS REDUCIBLE KNEE ARTHROSCOPY W/ MENISCAL REPAIR PROCEDURE: FL ARTHROSCOPY KNEE W/MENISCUS RPR MEDIAL/LATERAL OTHER SURGICAL HISTORY 01/13/2022 PROCEDURE: FL RPR UMBILICAL HRNA 5 YRS/> REDUCIBLE; COMMENT: open umbilical hernia repair with mesh - Madyson Marquez Medical History Medical History Date Comments Historical Medical DX 02/21/2013 DX:NO ACTI VE MEDICAL PROBLEMS Diabetes mellitus type II, uncontrolled 02/24/2013 DX:Diabetes mellitus type II , uncontrolled Uncontrolled type 2 diabetes mellitus with peripheral neuropathy 08/19/2015 DX:Uncontrolled type 2 diab etes mellitus with peripheral neuropathy Diabetic polyneuropathy asso ciated with type 2 diabetes mellitus ([facility] V24, [facility]) 08/19/2015 DX:Diabetic polyneuropathy a ssociated with type 2 diabetes mellitus ([facility]) Hyperlipemia DX:Hyperlipemia Depression DX:Depression Diabetes ([facility] V24, [facility] V28) DX:Diabetes ([facility]) Anxiety disorder DX:Anxiety diso rder Arthritis DX:Arthritis Hypertension DX:Hypertension Family History Medical History Relation Name Comments Diabetes Father Cataracts Mother Colon cancer Mother Blindness Neg Hx Glaucoma Neg Hx Macular degeneration Neg Hx Strabismus Neg Hx Relation Name Status Comments Father Mother Social History Tobacco Use Types Packs/Day Years Used Date Smoking Tobacco: Every Day Smokeless Tobacco: Never Tobacco Cessation:Ready to Q uit: Not Asked; Counseling Given: Not Answered Alcohol Use Standard Drinks/Week Comments Not Currently 0 (1 standard drink = 0.6 oz pur e alcohol) Financial Risk Answer Date Recorded How hard is it for you to pa y for the very basics like food, housing, medical care, and air conditioning / heating? Not very hard 06/08/2025 Transportation Answer Date Recorded Has the lack of transportati on kept you from meetings, work, or from getting things needed for daily living? No Has the lack of transportati on kept you from medical appointments or from getting medications? No 06/08/2025 Food Risk Answer Date Recorded Within the past 12 months we worried whether our food would run out before we got money to buy more. Never true 06/08/2025 Within the past 12 months th e food we bought just didn't last and we didn't have money to get more. Never true 06/08/2025 Sex and Gender Information Value Date Recorded Sex Assigned at Not on file Legal Sex Male 6:34 AM EST Gender Identity Not on file Sexual Orientation Not on file Obstetrics History Last Filed Vital Signs Vital Sign Reading Time Taken Comments Blood Pressure 131/52 06/08/2025 9:04 AM EDT Pulse 68 06/08/2025 9:04 AM EDT Temperature 36.3 C (97.3 F) 03/28/2025 7:59 AM EDT Respiratory Rate 16 06/18/2025 12:01 PM EDT Oxygen Saturation 97% 03/28/2025 7:59 AM EDT Inhaled Oxygen Concentration - - Weight 84.4 kg (186 lb) 06/18/2025 12:01 PM EDT Height 175.3 cm (5' 9 ) 06/18/2025 12:01 PM EDT Body Mass Index 27.47 06/18/2025 12:01 PM EDT Plan of Treatment Upcoming Encounters Date Type Department Care Team (Late st Contact Info) Description 06/29/2025 10:30 AM EDT Office Visit Adult Medicine [address] [phone] Vicente Thomason MD [address] [place] [address] 09/18/2025 9:30 AM EST Office Visit [address] [phone] Gurwinder Balbuena MD [address] [place] [phone] 10/25/2025 9:45 AM EST Office Visit Adult Medicine [address] [phone] Vicente Thomason MD [address] [place] [address] Health Maintenance Due Date Last Done Comments Diabetes: Annual Foot Exam 1980 Diabetes: Annual Retina Eye Exam 1980 Hepatitis A Vaccines (1 of 2 - Risk 2-dose series) 1989 Hepatitis B Vaccines (1 of 3 - 19+ 3-dose series) 1989 Pneumococcal Vaccine: 50+ Years (2 of 2 - PCV) 12/11/2016 12/11/2015 Zoster Vaccines (1 of 2) 2020 HIV Screening 10/24/2022 Hepatitis C Screening 10/24/2022 DTaP,Tdap,and Td Vaccines (2 - Td or Tdap) 02/24/2023 02/24/2013 COVID-19 Vaccine ( - season) 2024 10/22/2021, 03/15/2021, 02/22/2021 Depression Screening 11/15/2024 Influenza Vaccine (#1) 2025 , 08/30/2018, 11/02/2017, Additional history exists Diabetes: Blood Sugar Control Test (HGBA1C) 09/28/2025 03/28/2025, 10/05/2024, 04/04/2024, Additional history exists Diabetes: Annual Urine Albumin-Creatinine Ratio (uACR) 03/28/2026 03/28/2025, 04/04/2024 Diabetes: Annual GFR (Glomerular Filtration Rate) 03/28/2026 03/28/2025, 10/05/2024, 04/04/2024, Additional history exists Hypertension/CHF/CAD Annual BMP Blood Test 03/28/2026 03/28/2025, 10/05/2024, 04/04/2024, Additional history exists Social Influencers of Health Screening 06/08/2026 06/08/2025 Colorectal Cancer Screening: Colonoscopy 10/13/2028 10/13/2023 Cholesterol Screening (Lipid Panel) 03/28/2030 03/28/2025, 10/05/2024, 01/04/2024 HIB Vaccines Aged Out No longer eligi ble based on patient's age to complete this topic HPV Vaccines Aged Out No longer eligi ble based on patient's age to complete this topic IPV Vaccines Aged Out No longer eligi ble based on patient's age to complete this topic MMR Vaccines Aged Out No longer eligi ble based on patient's age to complete this topic Meningococcal ACWY Vaccine Aged Out N o longer eligible based on patient's age to complete this topic Meningococcal B Vaccine Aged Out No l onger eligible based on patient's age to complete this topic RSV Immunization Patients Under 20 months Aged Out No longer eligible based on patient's age to complete this topic Varicella Vaccines Aged Out No longer eligible based on patient's age to complete this topic Procedures Procedure Name Priority Date/Time Associated Diagnosis Comments BASIC METABOLIC PANEL Routine 03/28/2025 8:38 AM EDT Hypertension, unspecified type Type 2 diabetes mellitus with peripheral neuropathy ([facility] V24, [facility] V28) HEMOGLOBIN A1C Routine 03/28/2025 8:38 AM EDT Type 2 diabetes mellitus with peripheral neuropathy ([facility] V24, [facility] V28) LIPID PANEL WITH REFLEX TO DIRECT LDL Routine 03/28/2025 8:38 AM EDT High triglycerides Type 2 diabetes mellitus with peripheral neuropathy ([facility] V24, [facility] V28) MICROALBUMIN CREATININE URINE RATIO Routine 03/28/2025 8:38 AM EDT Type 2 diabetes mellitus with peripheral neuropathy ([facility] V24, [facility] V28) HM COLONOSCOPY Routine 10/13/2023 from Last 3 Months or Most Recently Relevant to Health Maintenance Results * Lipid panel with reflex to direct LDL (03/28/2025 8:38 AM EDT) Cholesterol 90 0 - 200 mg/dL LAB CHEMISTRY METHOD 03/28/2025 11:23 AM T [facility] Triglycerides 90 0 - 150 mg/dL LAB CHEMISTRY METHOD 03/28/2025 11:23 AM [facility] HDL 40 >=40 mg/dL LAB CHEMISTRY METHOD 03/28/2025 11:23 AM [facility] LDL Calculated 32 0 - 100 mg/dL LAB CHEMISTRY METHOD 03/28/2025 11:23 AM [facility] VLDL Cholesterol Adan 18 mg/dL LAB CHEMISTRY METHOD 03/28/2025 11:23 AM EDT [facility] Non HDL Chol. (LDL+VLDL) 50 <145 mg/dL LAB CHEMISTRY METHOD 03/28/2025 11:23 AM EDT [facility] Chol/HDL Ratio 2.3 0.0 - 4.4 LAB CHEMISTRY METHOD 03/28/2025 11:23 AM EDT [facility] Blood Venous blood specimen / Unknown Venipuncture / Unknown 03/28/2025 8:38 AM EDT 03/28/2025 8:38 AM EDT Jeremy BERRIOS LAB BLOOD ORDERABLES Fi nal Result [facility] [address] [place] [address], [place] [phone] * (ABNORMAL) Microalbumin creatinine urine ratio (03/28/2025 8:38 AM EDT) Creatinine, Urine 38.0 mg/dL LAB CHEMISTRY METHOD 03/28/2025 11:51 AM EDT [facility] Microalb, Ur 19.8 0.0 - 29.0 mg/L LAB CHEMISTRY METHOD 03/28/2025 11:51 AM EDT [facility] Microalb/Creat Ratio 52(H) <30 mg/g creat LAB CHEMISTRY METHOD 03/28/2025 11:51 AM EDT [facility] Urine Urine specimen obtained by clean catch procedure / Unknown Non-blood Collection / Unknown 03/28/2025 8:38 AM EDT 03/28/2025 8:38 AM EDT Jeremy BERRIOS LAB URINE ORDERABLES Fi nal Result [facility] [address] [place] [address], [place] [phone] * (ABNORMAL) Hemoglobin A1c (03/28/2025 8:38 AM EDT) [facility] Hemoglobin A1C 10.0(H) <6.5 % LAB CHEMISTRY METHOD 03/28/2025 11:26 AM EDT [facility] Mean Bld Glu Estim. 240 mg/dL LAB CHEMISTRY METHOD 03/28/2025 11:26 AM T [facility] Blood Venous blood specimen / Unknown Venipuncture / Unknown 03/28/2025 8:38 AM EDT 03/28/2025 8:38 AM EDT Jeremy BERRIOS LAB BLOOD ORDERABLES Fi nal Result [facility] [address] [place] [address], * (ABNORMAL) Basic metabolic panel (03/28/2025 8:38 AM EDT) [facility] Sodium 141 133 - 145 mmol/L LAB CHEMISTRY METHOD 03/28/2025 11:23 AM [facility] Potassium 4.5 3.5 - 5.5 mmol/L LAB CHEMISTRY METHOD 03/28/2025 11:23 AM [facility] Chloride 109 96 - 110 mmol/L LAB CHEMISTRY METHOD 03/28/2025 11:23 AM [facility] CO2 25 21 - 32 mmol/L LAB CHEMISTRY METHOD 03/28/2025 11:23 AM [facility] Anion Gap 7 3 - 11 LAB CHEMISTRY METHOD 03/28/2025 11:23 AM [facility] Glucose 216(H) 70 - 100 mg/dL LAB CHEMISTRY METHOD 03/28/2025 11:23 AM [facility] BUN 24 5 - 25 mg/dL LAB CHEMISTRY METHOD 03/28/2025 11:23 AM EDT [facility] Creatinine 0.98 0.70 - 1.30 mg/dL LAB CHEMISTRY METHOD 03/28/2025 11:23 AM EDT [facility] eGFR 92 >=60 mL/min/1. 73m2 LAB CHEMISTRY METHOD 03/28/2025 11:23 AM EDT [facility] Comment:Calculation based on the Chronic Kidney Disease Epidemiology Collaboration (CKD-EPI) equation refit without adjustment for race. BUN/Creatinine Ratio 24.5 LAB CHEMISTRY METHOD 03/28/2025 11:23 AM EDT [facility] Calcium 9.1 8.5 - 10.5 mg/dL LAB CHEMISTRY METHOD 03/28/2025 11:23 AM EDT [facility] Blood Venous blood specimen / Unknown Venipuncture / Unknown 03/28/2025 8:38 AM EDT 03/28/2025 8:38 AM EDT Jeremy BERRIOS LAB BLOOD ORDERABLES Fi nal Result [facility] [address] [place] [address], * Colonoscopy (10/13/2023) [facility] Signature Colonoscopy abstracted, no interpretation Anatomical Region Laterality Modality Other Historical Provider HEALTH MAINTENANCE Final Result from Last 3 Months or Most Recently Relevant to Health Maintenance Insurance [employer] Care Teams Caterer'S Aide Relationship Specialty Start Date End Date Vicente Thomason MD [address] [place] [phone] PCP - General Internal Medicine 02/21/13
== END 2025-06-25 10:58 | disposition home or self-care (01) ==
LOC: HO.HSM 10:32
PROVIDERS: PCP Internal Medicine; Referring Provider Internal Medicine; Visit Provider Registered Nurse
DX: E11.42 Type 2 diabetes mellitus with diabetic polyneuropathy (principal); F41.9 Anxiety disorder, unspecified; M54.16 Radiculopathy, lumbar region
CPT/HCPCS: 99214

== ENCOUNTER → 2025-06-25 10:31 | Outpatient (BNVA) | payer OTHER, SELFPAY | PROVIDERS: PCP Internal Medicine; Referring Provider Internal Medicine; Visit Provider Registered Nurse | DX: E11.42 Type 2 diabetes mellitus with diabetic polyneuropathy (principal); F41.9 Anxiety disorder, unspecified; M54.16 Radiculopathy, lumbar region; Z79.891 Long term (current) use of opiate analgesic; Z79.899 Other long term (current) drug therapy; Z79.84 Long term (current) use of oral hypoglycemic drugs; Z79.4 Long term (current) use of insulin; Z79.85 Long-term (current) use of injectable non-insulin antidiabetic drugs | CPT/HCPCS: 99212 ==